=== PATIENT | male | born 1990 | race Two or more races ===

== ENCOUNTER 2020-10-06 21:09 | Inpatient (IN) ==
[2020-10-06] MEDS ORDERED: GI COCKTAIL ED USE PO ONE (22:52)
[2020-10-06] MEDS ORDERED: FAMOTIDINE 20MG/5ML IV PUSH IV STA (22:52)
[2020-10-06] MEDS ORDERED: SODIUM CHLORIDE 0.9% 1000ML 1,000 ML IV STA (22:52)
[2020-10-06] MEDS ORDERED: PANTOprazole 40 MG TAB PO STA (23:37)
[2020-10-06] MEDS ORDERED: DICYCLOMINE HCL 10 MG/ML 2 ML AMP/VIAL IM ONE (23:37)
--- NOTE | 2020-10-06 23:37 | Emergency Department Note ---
History of Present Illness General Chief complaint: Abdominal Pain Stated complaint: STOMACH PAIN History of Present Illness Maximum Pain Intensity: 7 This 30-year-old presents to the ER complaining of upper abdominal pain Location: Upper abdomen Quality: Discomfort Severity: Moderate Duration: Tonight Timing: Tonight Context: Patient was concerned and came in Modifying factors: better with nothing; worse with activity gallbladder has been removed. Patient ate a large meal and later on he developed pain. He has been belching more. Patient denies chest pain, dyspnea, fevers, vomiting, diarrhea, urinary symptoms. Home Medications Medication Instructions Recorded Confirmed Type fenofibrate nanocrystallized 145 145 mg PO DAILY 10/06/20 10/06/20 History mg tablet (Tricor) Allergies Allergy/AdvReac Type Severity Reaction Status Date / Time No Known Allergies Allergy Unverified 10/06/20 23:00 Past Med/Surg History Medical History High cholesterol Surgical History Hx of cholecystectomy Social History Smoking Status: Current every day smoker Tobacco Type: Cigarettes Do You Dip or Chew Tobacco: No; Hx Alcohol Use: No Hx Substance Use: No Preferred Language: Czech Beliefs That Will Affect Care: None Current Living Situation: Spouse Current Living Situation Comment: apartment on campus Feels Safe at Home: Yes Safety Concerns: Feels Safe At This Time Assistive Devices: Glasses Review of Systems A total of 10 systems reviewed and were otherwise negative Physical Exam Vital Signs Vital Signs - 24 hr 10/06/20 21:16 10/06/20 23:01 10/06/20 23:40 Temperature 36.0 C L Temperature Source Temporal Artery Scan Pulse Rate 99 H 67 68 Pulse Rate from SpO2 Sensor 67 66 Pulse Rhythm Regular Regular Respiratory Rate 18 19 18 Respiratory Effort / Characteristics Non-Labored Spontaneous Respiratory Depth Normal Respiratory Pattern Regular Blood Pressure 143/88 H 137/84 133/90 Blood Pressure Mean 106 101 104 Pulse Oximetry 99 99 99 Oxygen Delivery Method Room Air Room Air Room Air Sepsis Recent Fever Within 48 Hours No Sepsis New/Unexplained Change in Mental Status No Sepsis Action Taken by Nursing No Action Required 10/07/20 00:00 10/07/20 00:30 10/07/20 01:00 Temperature Temperature Source Pulse Rate 76 81 70 Pulse Rate from SpO2 Sensor 76 82 70 Pulse Rhythm Respiratory Rate 23 19 20 Respiratory Effort / Characteristics Respiratory Depth Respiratory Pattern Blood Pressure 140/88 125/75 129/81 Blood Pressure Mean 105 91 97 Pulse Oximetry 99 99 99 Oxygen Delivery Method Room Air Room Air Room Air Sepsis Recent Fever Within 48 Hours Sepsis New/Unexplained Change in Mental Status Sepsis Action Taken by Nursing 10/07/20 01:31 10/07/20 01:40 10/07/20 01:50 Temperature Temperature Source Pulse Rate 69 81 71 Pulse Rate from SpO2 Sensor 70 81 67 Pulse Rhythm Respiratory Rate 17 17 22 Respiratory Effort / Characteristics Respiratory Depth Respiratory Pattern Blood Pressure Blood Pressure Mean Pulse Oximetry 100 99 98 Oxygen Delivery Method Room Air Room Air Room Air Sepsis Recent Fever Within 48 Hours Sepsis New/Unexplained Change in Mental Status Sepsis Action Taken by Nursing 10/07/20 02:00 10/07/20 02:30 10/07/20 03:02 Temperature Temperature Source Pulse Rate 67 76 70 Pulse Rate from SpO2 Sensor 67 73 71 Pulse Rhythm Respiratory Rate 21 20 20 Respiratory Effort / Characteristics Respiratory Depth Respiratory Pattern Blood Pressure 131/73 116/62 135/79 Blood Pressure Mean 92 80 97 Pulse Oximetry 98 99 98 Oxygen Delivery Method Sepsis Recent Fever Within 48 Hours Sepsis New/Unexplained Change in Mental Status Sepsis Action Taken by Nursing 10/07/20 03:30 10/07/20 04:00 10/07/20 04:30 Temperature Temperature Source Pulse Rate 76 79 70 Pulse Rate from SpO2 Sensor 72 79 71 Pulse Rhythm Respiratory Rate 20 20 20 Respiratory Effort / Characteristics Respiratory Depth Respiratory Pattern Blood Pressure 121/74 123/96 128/82 Blood Pressure Mean 89 105 97 Pulse Oximetry 97 98 97 Oxygen Delivery Method Room Air Room Air Sepsis Recent Fever Within 48 Hours Sepsis New/Unexplained Change in Mental Status Sepsis Action Taken by Nursing 10/07/20 05:00 Temperature Temperature Source Pulse Rate 76 Pulse Rate from SpO2 Sensor 76 Pulse Rhythm Respiratory Rate 18 Respiratory Effort / Characteristics Respiratory Depth Respiratory Pattern Blood Pressure 124/72 Blood Pressure Mean 89 Pulse Oximetry 96 Oxygen Delivery Method Room Air Sepsis Recent Fever Within 48 Hours Sepsis New/Unexplained Change in Mental Status Sepsis Action Taken by Nursing VITALS: Vitals are noted on the nurse's note and reviewed by myself. Vital signs stable. GENERAL: Pleasant male, in no acute distress, nondiaphoretic, well-developed well-nourished. SKIN: The skin was without rashes, erythema, edema, or bruising. There is no tenting of the skin. Capillary reflex less than 2 seconds. HEAD: Normocephalic atraumatic. EARS: External auditory canals clear, EYES: Pupils equal round and reactive to light and accommodation. Conjunctivae without injection, sclerae without icterus. Extraocular movements intact. NOSE: Patent, turbinates without inflammation or discharge. MOUTH: Mucous membranes moist. Pharynx without erythema or exudate. Uvula midline. Airway patent. Tongue does not deviate. NECK: Supple without nuchal rigidity. No lymphadenopathy. No thyromegaly. Cervical spine is nontender. No JVD. HEART: Regular rate and rhythm LUNGS: Clear to auscultation bilaterally without wheezes, rales or rhonchi. No retractions or accessory muscle use. ABDOMEN: Positive bowel sounds x 4. Normal tympanic percussion. Soft, tender epigastric region, without masses or organomegaly. Sharp sign negative. No guarding or rebound tenderness. No CVA tenderness MUSCULOSKELETAL: No muscle atrophy, erythema, or edema noted. NEURO: Patient was alert and oriented to person place and time. Normal sensati on to light and sharp touch. No focal neurological deficits. Course Administered Medications Enoxaparin Sodium (Enoxaparin Inj 40 Mg/0.4 Ml Syr) 40 mg SQ QAM CRISTAL Stop: 11/06/20 08:59 Last Admin: 10/07/20 10:14 Dose: Not Given Documented by: [id number] Fenofibrate (Fenofibrate Nanocrystallized 145 Mg Tablet) 145 mg PO DAILY CRISTAL Stop: 11/06/20 08:59 Last Admin: 10/07/20 09:54 Dose: Not Given Documented by: [id number] Pantoprazole Sodium 40 mg/ (Syringe) 10 mls @ 5 mls/min IV BID CRISTAL Stop: 11/06/20 08:59 Last Admin: 10/07/20 10:13 Dose: 5 mls/min Documented by: [id number] Sodium Chloride (Nss 1000ml) 1,000 mls @ 220 mls/hr IV .Q4H33M CRISTAL Stop: 11/06/20 08:16 Last Admin: 10/07/20 14:46 Dose: 220 mls/hr Documented by: [id number] Infusion: 10/07/20 14:46 Dose: 220 mls/hr Documented by: [id number] Admin: 10/07/20 10:13 Dose: 220 mls/hr Documented by: [id number] Ketorolac Tromethamine (Ketorolac Tromethamine 15 Mg/Ml Vial) 15 mg IV Q6H PRN PRN Reason: Pain Stop: 10/12/20 08:16 Last Admin: 10/07/20 11:45 Dose: 15 mg Documented by: [id number] Morphine Sulfate (Morphine Sulfate 2 Mg/Ml Carp) 2 mg IV Q4H PRN PRN Reason: Pain Stop: 10/21/20 08:16 Last Admin: 10/07/20 16:30 Dose: 2 mg Documented by: [id number] Admin: 10/07/20 09:03 Dose: 2 mg Documented by: [id number] Ondansetron HCl (Ondansetron Inj 2 Mg/Ml 2 Ml Vial) 4 mg IV Q6H PRN PRN Reason: Nausea Stop: 11/06/20 08:16 Last Admin: 10/07/20 09:11 Dose: 4 mg Documented by: [id number] Discontinued Medications Al Hydrox/Mg Hydrox/Simethicone (Gi Cocktail Ed Use) 1 dose PO ONE ONE Stop: 10/06/20 22:53 Last Admin: 10/06/20 23:17 Dose: 1 dose Documented by: [id number] Dicyclomine HCl (Dicyclomine Hcl 10 Mg/Ml 2 Ml Amp/Vial) 20 mg IM NOW ONE Stop: 10/06/20 23:38 Last Admin: 10/06/20 23:45 Dose: 20 mg Documented by: [id number] Droperidol (Droperidol 5 Mg/2 Ml Vial) 1.25 mg IV ONE STA Stop: 10/07/20 01:22 Last Admin: 10/07/20 01:27 Dose: 1.25 mg Documented by: [id number] Famotidine (Famotidine 20mg/5ml Iv Push) 20 mg IV ONE STA Stop: 10/06/20 22:53 Last Admin: 10/06/20 23:17 Dose: 20 mg Documented by: [id number] Sodium Chloride (Nss 1000ml) 1,000 mls @ 999 mls/hr IV .Q1H1M STA Stop: 10/06/20 23:52 Last Infusion: 10/07/20 00:18 Dose: 0 mls/hr Documented by: [id number] Admin: 10/06/20 23:17 Dose: 999 mls/hr Documented by: [id number] Lactated Ringer's (Lr) 1,000 mls @ 999 mls/hr IV .Q1H1M ONE Stop: 10/07/20 05:09 Last Infusion: 10/07/20 08:58 Dose: 0 mls/hr Documented by: [id number] Admin: 10/07/20 04:38 Dose: 999 mls/hr Documented by: [id number] Lactated Ringer's (Lr) 1,000 mls @ 999 mls/hr IV .Q1H1M ONE Stop: 10/07/20 09:17 Last Infusion: 10/07/20 10:35 Dose: 0 mls/hr Documented by: [id number] Admin: 10/07/20 09:03 Dose: 999 mls/hr Documented by: [id number] Ioversol (Optiray 320 100ml) 95 ml IV ONCE ONE Stop: 10/07/20 01:05 Last Admin: 10/07/20 01:05 Dose: 95 ml Documented by: [id number] Ketorolac Tromethamine (Ketorolac Tromethamine 15 Mg/Ml Vial) 10 mg IV NOW STA Stop: 10/07/20 00:18 Last Admin: 10/07/20 00:37 Dose: 10 mg Documented by: [id number] Morphine Sulfate (Morphine Sulfate 4 Mg/Ml 1 Ml Carp\Vial) 4 mg IV NOW STA Stop: 10/07/20 04:08 Last Admin: 10/07/20 04:38 Dose: 4 mg Documented by: [id number] Pantoprazole Sodium (Pantoprazole 40 Mg Tab) 40 mg PO NOW STA Stop: 10/06/20 23:38 Last Admin: 10/06/20 23:44 Dose: 40 mg Documented by: [id number] Medical Decision Making Medical Records Attestation: I reviewed the patient's medical records. Home Medications Current Medication List: was personally reviewed by me Laboratory Data Attestation: I reviewed the patient's lab results. Result diagrams: 10/06/20 23:10 10/07/20 00:37 Lab Results 10/06/20 10/06/20 10/06/20 Range/Units 23:10 23:10 23:10 WBC 11.45 H (4.8-10.8) K/uL RBC 5.64 (4.7-6.1) M/uL Hgb 17.3 (14.0-18.0) g/dL Hct 44.7 (42-52) % MCV 79.3 L (80-100) fL MCH 30.7 (25-34) pg MCHC 38.7 H (32-36) g/dL Plt Count 266 (130-400) K/uL Immature Gran % (Auto) 0.3 % Neut % (Auto) 74.8 % Lymph % (Auto) 18.3 % [place] % (Auto) 5.3 % Eos % (Auto) 1.0 % Baso % (Auto) 0.3 % Neut # (Auto) 8.57 H (1.4-6.5) K/uL Lymph # (Auto) 2.10 (1.2-3.4) K/uL [place] # (Auto) 0.61 H (0.11-0.59) K/uL Eos # (Auto) 0.11 (0-0.5) K/uL Baso # (Auto) 0.03 (0-0.2) K/uL Immature Gran # (Auto) 0.03 H (0.00-0.02) K/uL Spherocytes 1+ Sodium Cancelled Potassium Cancelled Chloride Cancelled Carbon Dioxide Cancelled Anion Gap Cancelled BUN Cancelled Creatinine Cancelled Est Cr Clr Drug Dosing Cancelled Est GFR ( Amer) Cancelled Est GFR (Non-Af Amer) Cancelled BUN/Creatinine Ratio Cancelled Glucose Cancelled Calcium Cancelled Total Bilirubin Cancelled AST Cancelled ALT Cancelled Alkaline Phosphatase Cancelled Total Protein Cancelled Albumin Cancelled Globulin Cancelled Albumin/Globulin Ratio Cancelled Triglycerides Cholesterol LDL Cholesterol, Calc VLDL Cholesterol, Calc HDL Cholesterol Cholesterol/HDL Ratio Lipase Cancelled Urine Color Dark Yellow Urine Appearance Cloudy A (Clear) Urine pH 6.0 (4.5-7.5) Ur Specific [place] 1.030 (1.000-1.030) Urine Protein 1+ H (Negative) Urine Glucose (UA) Negative (Negative) Urine Ketones Trace H (Negative) Urine Blood 2+ H (Negative) Urine Nitrite Negative (Negative) Urine Bilirubin 1+ H (Negative) Urine Urobilinogen Negative (Negative) Ur Leukocyte Esterase Negative (Negative) Urine WBC (Auto) 1-5 (0-5) /hpf Urine RBC (Auto) 0-4 (0-4) /hpf U Hyaline Cast (Auto) 10-30 H (0-5) /lpf U Epithel Cells (Auto) >30 H (0-5) /lpf Urine Bacteria (Auto) Negative (Negative) Ur Renal Epithelial Cell 0-5 (0-5) /lpf COVID-19 Eval Order SARS-CoV-2 (PCR) (Negative) 10/07/20 10/07/20 10/07/20 Range/Units 00:37 00:37 04:35 WBC (4.8-10.8) K/uL RBC (4.7-6.1) M/uL Hgb (14.0-18.0) g/dL Hct (42-52) % MCV (80-100) fL MCH (25-34) pg MCHC (32-36) g/dL Plt Count (130-400) K/uL Immature Gran % (Auto) % Neut % (Auto) % Lymph % (Auto) % [place] % (Auto) % Eos % (Auto) % Baso % (Auto) % Neut # (Auto) (1.4-6.5) K/uL Lymph # (Auto) (1.2-3.4) K/uL [place] # (Auto) (0.11-0.59) K/uL Eos # (Auto) (0-0.5) K/uL Baso # (Auto) (0-0.2) K/uL Immature Gran # (Auto) (0.00-0.02) K/uL Spherocytes Sodium 139 Potassium 3.5 Chloride 108 H Carbon Dioxide 22 Anion Gap 11.0 BUN 12 Creatinine 0.87 Est Cr Clr Drug Dosing 157.9 Est GFR ( Amer) 135.2 Est GFR (Non-Af Amer) 116.6 BUN/Creatinine Ratio 13.6 Glucose 86 Calcium 7.7 L Total Bilirubin 0.8 AST 36 ALT 77 Alkaline Phosphatase 49 Total Protein 6.7 Albumin 3.6 Globulin 3.1 Albumin/Globulin Ratio 1.2 Triglycerides Cancelled Cholesterol Cancelled LDL Cholesterol, Calc Cancelled VLDL Cholesterol, Calc Cancelled HDL Cholesterol Cancelled Cholesterol/HDL Ratio Cancelled Lipase 396 H Urine Color Urine Appearance (Clear) Urine pH (4.5-7.5) Ur Specific [place] (1.000-1.030) Urine Protein (Negative) Urine Glucose (UA) (Negative) Urine Ketones (Negative) Urine Blood (Negative) Urine Nitrite (Negative) Urine Bilirubin (Negative) Urine Urobilinogen (Negative) Ur Leukocyte Esterase (Negative) Urine WBC (Auto) (0-5) /hpf Urine RBC (Auto) (0-4) /hpf U Hyaline Cast (Auto) (0-5) /lpf U Epithel Cells (Auto) (0-5) /lpf Urine Bacteria (Auto) (Negative) Ur Renal Epithelial Cell (0-5) /lpf COVID-19 Eval Order Covid19 at [facility] SARS-CoV-2 (PCR) (Negative) 10/07/20 Range/Units 04:35 WBC (4.8-10.8) K/uL RBC (4.7-6.1) M/uL Hgb (14.0-18.0) g/dL Hct (42-52) % MCV (80-100) fL MCH (25-34) pg MCHC (32-36) g/dL Plt Count (130-400) K/uL Immature Gran % (Auto) % Neut % (Auto) % Lymph % (Auto) % [place] % (Auto) % Eos % (Auto) % Baso % (Auto) % Neut # (Auto) (1.4-6.5) K/uL Lymph # (Auto) (1.2-3.4) K/uL [place] # (Auto) (0.11-0.59) K/uL Eos # (Auto) (0-0.5) K/uL Baso # (Auto) (0-0.2) K/uL Immature Gran # (Auto) (0.00-0.02) K/uL Spherocytes Sodium Potassium Chloride Carbon Dioxide Anion Gap BUN Creatinine Est Cr Clr Drug Dosing Est GFR ( Amer) Est GFR (Non-Af Amer) BUN/Creatinine Ratio Glucose Calcium Total Bilirubin AST ALT Alkaline Phosphatase Total Protein Albumin Globulin Albumin/Globulin Ratio Triglycerides Cholesterol LDL Cholesterol, Calc VLDL Cholesterol, Calc HDL Cholesterol Cholesterol/HDL Ratio Lipase Urine Color Urine Appearance (Clear) Urine pH (4.5-7.5) Ur Specific [place] (1.000-1.030) Urine Protein (Negative) Urine Glucose (UA) (Negative) Urine Ketones (Negative) Urine Blood (Negative) Urine Nitrite (Negative) Urine Bilirubin (Negative) Urine Urobilinogen (Negative) Ur Leukocyte Esterase (Negative) Urine WBC (Auto) (0-5) /hpf Urine RBC (Auto) (0-4) /hpf U Hyaline Cast (Auto) (0-5) /lpf U Epithel Cells (Auto) (0-5) /lpf Urine Bacteria (Auto) (Negative) Ur Renal Epithelial Cell (0-5) /lpf COVID-19 Eval Order SARS-CoV-2 (PCR) NEGATIVE (Negative) Imaging Data Radiologist's Impression: Abdomen/Pelvis CT 10/07/20 00:17 CT OF THE ABDOMEN AND PELVIS WITH CONTRAST CLINICAL HISTORY: Mid abdominal pain COMPARISON STUDY: None. TECHNIQUE: Following IV administration of 95 mL of Optiray, axial images of the abdomen and pelvis were obtained from the lung bases to the proximal femurs. Images were reviewed in the axial, sagittal, and coronal planes. IV contrast was administered without complication. Automated exposure control was utilized for the study. A dose lowering technique was utilized adhering to the principles of ALARA. CT DOSE: 811.11 mGy.cm FINDINGS: Lung bases are unremarkable. No pneumatosis, free air or portal venous gas is present. There is no biliary ductal dilatation status post cholecystectomy. No hepatic lesions are present. Hepatic steatosis. The spleen is mildly enlarged. Note is made of moderate stranding adjacent to the pancreatic head and uncinate process as well as the second portion of the duodenum. No peripancreatic fluid collection is present. No pancreatic ductal dilatation. A subcentimeter hypodense focus within the pancreatic head is noted. There is no evidence for a bowel obstruction. The appendix is normal. The caliber and wall thickness of small and large bowel are normal. Major vasculature is patent. IMPRESSION: 1. Moderate stranding adjacent to the pancreatic and uncinate process and the second portion of the duodenum suggestive of acute pancreatitis. No peripancreatic fluid collection. 2. No biliary ductal dilatation status post cholecystectomy. 3. Hepatic steatosis. 4. Mild splenomegaly. ACT 112: Negative or not required by law. Electronically signed by: Anthony Og M.D. 10/07/2020 6:50 AM MDM Narrative Prior records/ancillary studies reviewed. Triage Nursing notes reviewed. Additional history obtained from family. The patient's history was concerning for abdominal pain. Differential diagnosis: Etiologies such as appendicitis, diverticulitis, PUD, biliary pathology, UTI, pancreatitis, obstruction, mesenteric ischemia, aortic pathology, infections, inflammatory bowel disease, renal colic, as well as others were entertained. Physical examination findings: As above. ER treatment provided: An order was placed for continuous cardiac monitoring. The monitor shows a rate of 60-100 with a sinus rhythm. GI cocktail, Pepcid, Protonix, Toradol, morphine, IV fluids On reassessment the patient felt better. Diagnostics interpreted by me: The labs revealed leukocytosis, mild lipase elevation Imaging studies: CT ABDOMEN & PELVIS With Contrast: Is abnormal edema in the fat surrounding the pancreatic head. This is favored to represent pancreatitis. There is no pancreatic ductal dilatation. No regional abnormal fluid collection is identified. The gallbladder has been. No other acute findings. There is no evidence of bowel obstruction, appendicitis or diverticulitis. Radiologist: Moshe Loera MD Consultation: Medicine was consulted and will evaluate the patient for admission. Exam and history seem consistent with pancreatitis.. Patient has a history of high triglycerides. Lipid panel was ordered. Medicine was consulted. He will be evaluated for possible admission. Patient states he does not drink alcohol. Gallbladder was surgically removed. By the evaluation outlined above emergent etiologies such as appendicitis, diverticulitis, PUD, biliary pathology, UTI, obstruction, mesenteric ischemia, aortic pathology, inflammatory bowel disease, renal colic, as well as others were deemed relatively unlikely. The pt informed about the findings as listed above. All questions were answered and pleased with the treatment. The chart was completed utilizing [employer] voice recognition software. Grammatical errors, random word insertions, pronoun errors, and incomplete sentences are an occassional consequence of this system due to software limitations, ambient noise, and hardware issues. Any formal questions or concerns about the content, text, or information contained within the body of this dictation should be directly addressed to the physician senior office assistant for clarification. Impression & Plan Pancreatitis Discharge Plan Visit Data Chief Complaint: Abdominal Pain Stated Complaint: STOMACH PAIN ED Provider: Rose Dawn ED Midlevel Provider: Amina Lorenzo Discharge Problem: Pancreatitis Patient Disposition: Admitted As Inpatient Condition: Good Discharge Instructions Interventions: ED Discharge Assessment Last Done: 10/07/20 07:46 Discharge Problem: Pancreatitis Qualifiers: Chronicity: acute Pancreatitis type: unspecified pancreatitis type Acute pancreatitis complication: unspecified Qualified Code(s): K85.90 - Acute pancreatitis without necrosis or infection, unspecified
[2020-10-06 23:46] LABS: Appearance Urine Cloudy (Clear); Bacteria Urine Automated Negative (Negative); Blood Urine 2+ (Negative); Color Urine Dark Yellow; Epithelial Cell Urine Auto >30 /lpf (0-5); Glucose Urine UA Negative (Negative); Ketones Urine Trace (Negative); Leukocyte Esterase Urine Negative (Negative); Nitrite Urine Negative (Negative); Protein Urine 1+ (Negative); RBC Urine Automated 0-4 /hpf (0-4); Urobilinogen Urine Negative (Negative)
[2020-10-06 23:49] LABS: Hematocrit (blood only) 44.7 % (42-52); Hemoglobin 17.3 g/dL (14.0-18.0); Mean Corpuscular Hemoglobin 30.7 pg (25-34); Mean Corpuscular Hgb Conc 38.7 g/dL (32-36); Mean Corpuscular Volume 79.3 fL (80-100); Platelet Count 266 K/uL (130-400); Red Blood Count 5.64 M/uL (4.7-6.1); White Blood Count 11.45 K/uL (4.8-10.8)
[2020-10-06 23:52] LABS: Bilirubin Urine 1+ (Negative)
[2020-10-06 23:58] LABS: Basophils # (auto) 0.03 K/uL (0-0.2); Basophils % (auto) 0.3 %; Eosinophils # (auto) 0.11 K/uL (0-0.5); Immature Granulocytes # (auto) 0.03 K/uL (0.00-0.02); Immature Granulocytes % (auto) 0.3 %; Lymphocytes % (auto) 18.3 %; Monocytes # (auto) 0.61 K/uL (0.11-0.59); Monocytes % (auto) 5.3 %; Neutrophils # (auto) 8.57 K/uL (1.4-6.5); Neutrophils % (auto) 74.8 %; Spherocytes 1+
[2020-10-07 00:08] LABS: Renal Epithelial Cells Urine 0-5 /lpf (0-5)
[2020-10-07] MEDS ORDERED: KETOROLAC TROMETHAMINE 15 MG/ML VIAL IV STA (00:17)
[2020-10-07] MEDS ORDERED: OPTIRAY 320 100ml IV ONE (01:04)
[2020-10-07] MEDS ORDERED: DROPERIDOL 5 MG/2 ML VIAL IV STA (01:21)
[2020-10-07 01:32] LABS: Albumin Globulin Ratio 1.2 (0.9-2); Albumin Level 3.6 gm/dl (3.4-5.0); BUN Creatinine Ratio 13.6 (10-20); Bilirubin,Total 0.8 mg/dl (0.2-1); Calcium 7.7 mg/dl (8.5-10.1); Creatinine Clr Calc Pharmacy 157.9 ml/min; Est GFR (African American) 135.2 ml/min; Est GFR (Non-African American) 116.6 ml/min; Globulin 3.1 gm/dl (2.5-4.0); Potassium 3.5 mmol/L (3.5-5.1); Total Protein 6.7 gm/dl (6.4-8.2)
[2020-10-07] MEDS ORDERED: MoRPHine SULFATE 4 MG/ML 1 ML CARP\\VIAL IV STA (04:07)
[2020-10-07] MEDS ORDERED: LACTATED RINGER'S 1,000 ML IV ONE ×2 (04:09→08:17)
--- NOTE | 2020-10-07 04:32 | History & Physical Report ---
Date of Service October 07, 2020 Assessment & Plan (1) Pancreatitis: Plan: Pancreatitis - lipase mildly elevated to 396 - nona-pancreatic fat edema without pancreatic duct dilation on CT A/P - mild WBC elevation to 11k - lipid panel pending - hepatic panel normal - am A1c - Fluid bolus x2 in ER, LR bolus on floor, LR 1.5x normal DVT ppx: lovenox FEN/GI: NPO, PPI IV BID Code Status: Full Code Dispo: Med/Tele History of Present Illness Primary Care Provider: [facility] 30 yo M with hx pancreatitis due to hypertriglyceridemia in ER for severe abd ominal pain that started this morning. He denies any diarrhea. Has mild nausea but has had abdominal pain even with drinking water today. States that he was started on medication after his first diagnosis of pancreatitis 6 months ago, says he's almost done with it. Denies chest pain, emesis, palpitations, edema, lightheadedness, dizziness. Allergies Allergy/AdvReac Type Severity Reaction Status Date / Time No Known Allergies Allergy Unverified 10/06/20 23:00 Home Medications Medication Instructions Recorded Confirmed Type fenofibrate nanocrystallized 145 145 mg PO DAILY 10/06/20 10/06/20 History mg tablet (Tricor) Past Med/Surg History Medical History High cholesterol Surgical History Hx of cholecystectomy Social History Smoking Status: Current every day smoker Tobacco Type: Cigarettes Do You Dip or Chew Tobacco: No; Hx Alcohol Use: No Hx Substance Use: No Preferred Language: Turkish Beliefs That Will Affect Care: None Current Living Situation: Spouse Current Living Situation Comment: apartment on campus Feels Safe at Home: Yes Safety Concerns: Feels Safe At This Time Assistive Devices: Glasses Review of Systems Constitutional: no fever, no chills, no sweats and no fatigue Eyes: no blind spots and no discharge Ear, Nose, Mouth, Throat: no hearing loss and no nasal congestion Respiratory: no cough and no dyspnea Cardiovascular: no chest pain, no dyspnea on exertion and no edema Gastrointestinal: + abdominal pain and + nausea; no early satiety, no heartburn, no vomiting, no coffee ground emesis, no constipation, no diarrhea/loose stools and no blood in stools Musculoskeletal: no joint pain and no myalgia Neurologic: no tingling, no numbness and no headache(s) Endocrine: no fatigue Physical Exam Physical Exam: Constitutional: obese, in no apparent distress, sitting comfortably in bed. Eyes: EOMI, pupils equal and reactive bilaterally, no scleral icterus Cardiac: RRR, no murmurs, gallops or rubs. Normal S1, S2 Pulm: CTA BL, no wheezes, rhonchi, crackles or rubs, moving air well throughout both lungs Abd: soft, extremely TTP over epigastrium, normal bowel sounds, no rebound or guarding Extremities: 2+ peripheral pulses, no edema Neuro: no focal deficits, moving all 4 limbs, A&Ox3 Results & Data Results & Data ([facility]) Vital Signs (Past 12 Hours) Vital Signs Temp Pulse Resp BP Pulse Ox 10/07/20 03:30 76 20 121/74 97 10/07/20 03:02 70 20 135/79 98 10/07/20 02:30 76 20 116/62 99 10/07/20 02:00 67 21 131/73 98 10/07/20 01:50 71 22 98 10/07/20 01:40 81 17 99 10/07/20 01:31 69 17 100 10/07/20 01:00 70 20 129/81 99 10/07/20 00:30 81 19 125/75 99 10/07/20 00:00 76 23 140/88 99 10/06/20 23:40 68 18 133/90 99 10/06/20 23:01 67 19 137/84 99 10/06/20 21:16 36.0 C L 99 H 18 143/88 H 99 Laboratory Results Laboratory Results WBC 11.45 K/uL (4.8-10.8) H 10/06/20 23:10 RBC 5.64 M/uL (4.7-6.1) 10/06/20 23:10 Hgb 17.3 g/dL (14.0-18.0) 10/06/20 23:10 Hct 44.7 % (42-52) 10/06/20 23:10 MCV 79.3 fL (80-100) L 10/06/20 23:10 MCH 30.7 pg (25-34) 10/06/20 23:10 MCHC 38.7 g/dL (32-36) H 10/06/20 23:10 Plt Count 266 K/uL (130-400) 10/06/20 23:10 Immature Gran % (Auto) 0.3 % 10/06/20 23:10 Neut % (Auto) 74.8 % 10/06/20 23:10 Lymph % (Auto) 18.3 % 10/06/20 23:10 [place] % (Auto) 5.3 % 10/06/20 23:10 Eos % (Auto) 1.0 % 10/06/20 23:10 Baso % (Auto) 0.3 % 10/06/20 23:10 Neut # (Auto) 8.57 K/uL (1.4-6.5) H 10/06/20 23:10 Lymph # (Auto) 2.10 K/uL (1.2-3.4) 10/06/20 23:10 [place] # (Auto) 0.61 K/uL (0.11-0.59) H 10/06/20 23:10 Eos # (Auto) 0.11 K/uL (0-0.5) 10/06/20 23:10 Baso # (Auto) 0.03 K/uL (0-0.2) 10/06/20 23:10 Immature Gran # (Auto) 0.03 K/uL (0.00-0.02) H 10/06/20 23:10 Spherocytes 1+ 10/06/20 23:10 Sodium 139 mmol/L (136-145) 10/07/20 00:37 Potassium 3.5 mmol/L (3.5-5.1) 10/07/20 00:37 Chloride 108 mmol/L (98-107) H 10/07/20 00:37 Carbon Dioxide 22 mmol/L (21-32) 10/07/20 00:37 Anion Gap 11.0 (3-11) 10/07/20 00:37 BUN 12 mg/dl (7-18) 10/07/20 00:37 Creatinine 0.87 mg/dl (0.6-1.4) 10/07/20 00:37 Est Cr Clr Drug Dosing 157.9 ml/min 10/07/20 00:37 Est GFR ( Amer) 135.2 ml/min 10/07/20 00:37 Est GFR (Non-Af Amer) 116.6 ml/min 10/07/20 00:37 BUN/Creatinine Ratio 13.6 (10-20) 10/07/20 00:37 Glucose 86 mg/dl (70-99) 10/07/20 00:37 Calcium 7.7 mg/dl (8.5-10.1) L 10/07/20 00:37 Total Bilirubin 0.8 mg/dl (0.2-1) 10/07/20 00:37 AST 36 U/L (15-37) 10/07/20 00:37 ALT 77 U/L (12-78) 10/07/20 00:37 Alkaline Phosphatase 49 U/L (45-117) 10/07/20 00:37 Total Protein 6.7 gm/dl (6.4-8.2) 10/07/20 00:37 Albumin 3.6 gm/dl (3.4-5.0) 10/07/20 00:37 Globulin 3.1 gm/dl (2.5-4.0) 10/07/20 00:37 Albumin/Globulin Ratio 1.2 (0.9-2) 10/07/20 00:37 Lipase 396 U/L (73-393) H 10/07/20 00:37 Urine Color Dark Yellow 10/06/20 23:10 Urine Appearance Cloudy (Clear) A 10/06/20 23:10 Urine pH 6.0 (4.5-7.5) 10/06/20 23:10 Ur Specific [place] 1.030 (1.000-1.030) 10/06/20 23:10 Urine Protein 1+ (Negative) H 10/06/20 23:10 Urine Glucose (UA) Negative (Negative) 10/06/20 23:10 Urine Ketones Trace (Negative) H 10/06/20 23:10 Urine Blood 2+ (Negative) H 10/06/20 23:10 Urine Nitrite Negative (Negative) 10/06/20 23:10 Urine Bilirubin 1+ (Negative) H 10/06/20 23:10 Urine Urobilinogen Negative (Negative) 10/06/20 23:10 Ur Leukocyte Esterase Negative (Negative) 10/06/20 23:10 Urine WBC (Auto) 1-5 /hpf (0-5) 10/06/20 23:10 Urine RBC (Auto) 0-4 /hpf (0-4) 10/06/20 23:10 U Hyaline Cast (Auto) 10-30 /lpf (0-5) H 10/06/20 23:10 U Epithel Cells (Auto) >30 /lpf (0-5) H 10/06/20 23:10 Urine Bacteria (Auto) Negative (Negative) 10/06/20 23:10 Ur Renal Epithelial Cell 0-5 /lpf (0-5) 10/06/20 23:10 Supervising Physician Co-Signing Physician Notes Attending addendum: I have physically seen this patient, have supervised the medical residents activities, and agree with the H&P unless as otherwise noted. Assessment and Plan: Pancreatitis- Edema noted around pancreatic head Lipase mildly elevated at 396 famotidine 20 mg IV every 12 hours Zofran 4 mg IV every 6 hours as needed No suggestion of alcohol use or gallstone involvement N.p.o. Follow serial laboratories Check a fasting lipid panel to assess triglycerides, reportedly has a history of elevated triglycerides NSS 2 L in the ER, and continue rehydration with LR at 150 mils per hour Remaining orders and notations as noted Resident Activity Tracking Resident Involvement: Resident Care Provided Care Provided: Adult Hospital Medicine (1) Pancreatitis Acute pancreatitis complication: unspecified Chronicity: acute Pancreatitis type: unspecified pancreatitis type Qualified Code(s): K85.90 - Acute pancreatitis without necrosis or infection, unspecified
[2020-10-07 06:29] LABS: Chol HDL Ratio 8; Cholesterol 241 mg/dl (0-200); HDL Cholesterol 30 mg/dl; Triglycerides 1620 mg/dl (0-150)
--- NOTE | 2020-10-07 06:44 | Hospitalist Progress Note ---
Date of Service October 07, 2020 Assessment & Plan (1) Pancreatitis: Plan: 1) Acute Pancreatitis - on admission lipase mildly elevated to 396, elevated triglycerides 1620, mild WBC elevation to 11k - hepatic panel normal - HA1c pending - CT A/P = nona-pancreatic fat edema without pancreatic duct dilation - Fluid bolus x2 in ER, LR bolus on floor, LR 1.5x normal - currently NS 1000 mls @ 220mls/hr - PRN IV morphine, zofran, toradol - NPO, tomorrow can reassess to advance diet and resume PO medication Fenofibrate - If not improved by tomorrow, can consider giving insulin dosed by weight + glucose DVT ppx: lovenox FEN/GI: NPO, PPI IV BID Code Status: Full Code Dispo: Med/Tele Supervising Physician Co-Signing Physician Notes I personally examined the patient and verified all wei points of history and exam, discussed case, and agree with decision making with Dr Gloria. Feeling better. Less pain. Does not really want to eat yet. Notes his triglycerides were about 290 a month or so ago. Notes his diet is changed dramatically for the worst right now. Vitals noted, in general he is awake and alert pleasant no distress. HEENT normocephalic atraumatic mucous membranes moist. Breathing unlabored no accessory muscle use good effort. Abdomen is soft nondistended nontender no masses organomegaly. No guarding rebound or rigidity. No focal neuro deficits. Acute (apparently recurrent) pancreatitiswith no other clear cause, and triglycerides of 1600, his hypertriglyceridemia is very likely the culprit. We discussed how much triglycerides can swing with dietand made recommendations on how to improve his diet. Continue TriCor. Fortunately he is improving, so pheresis or insulin drips appear likely will be necessary. Continue fluids, continue n.p.o. for now, but probably by tomorrow advance diet as tolerated. Otherwise as above. Subjective 30yo Male presents to hospital with abdominal pain, PMH 2 previous episodes of pancreatitis and cholecystectomy. He states the pain occurred last night while he was sleeping, vomited once pain 8/10. He states he is on medication for elevated lipids, takes fenofibrate 150mg daily and a statin, has not taken his medication in the past 4 days, last month has eaten out often many sugary drinks not watched his diet. Patient states no family history of pancreatitis, no history of diabetes. Patient seen at bedside comfortable pain well controlled, calm and cooperative. Review of Systems Review of Systems: Positive alternating constipation diarrhea over the past year Positive vomitting Positive abd pain Negative fever chills Negative headache dizziness Negative chest pain palpitations SOB Negative nausea Negative numbness tingling rash swelling Physical Exam Physical Exam: General: Well appearing, age appropriate, obese Heart: RRR, +S1 S2, no murmurs/gallops/rubs Lungs: cta b/l, no wheezes/rales/rhonchi Abd: tender to palpation in RUQ and epigastric region, no rebound tenderness or guarding, soft, nondistended, +BS Extremities: no swelling, no rashes HEENT: no jaundice Results & Data Results & Data ([facility]) Vital Signs (Past 12 Hours) Vital Signs Temp Pulse Resp BP Pulse Ox 10/07/20 05:00 76 18 124/72 96 10/07/20 04:30 70 20 128/82 97 10/07/20 04:00 79 20 123/96 98 10/07/20 03:30 76 20 121/74 97 10/07/20 03:02 70 20 135/79 98 10/07/20 02:30 76 20 116/62 99 10/07/20 02:00 67 21 131/73 98 10/07/20 01:50 71 22 98 10/07/20 01:40 81 17 99 10/07/20 01:31 69 17 100 10/07/20 01:00 70 20 129/81 99 10/07/20 00:30 81 19 125/75 99 10/07/20 00:00 76 23 140/88 99 10/06/20 23:40 68 18 133/90 99 10/06/20 23:01 67 19 137/84 99 10/06/20 21:16 36.0 C L 99 H 18 143/88 H 99 Laboratory Results 10/07/20 10/07/20 10/07/20 Range/Units 05:45 05:44 04:35 WBC (4.8-10.8) K/uL RBC (4.7-6.1) M/uL Hgb (14.0-18.0) g/dL Hct (42-52) % MCV (80-100) fL MCH (25-34) pg MCHC (32-36) g/dL Plt Count (130-400) K/uL Immature Gran % (Auto) % Neut % (Auto) % Lymph % (Auto) % [place] % (Auto) % Eos % (Auto) % Baso % (Auto) % Neut # (Auto) (1.4-6.5) K/uL Lymph # (Auto) (1.2-3.4) K/uL [place] # (Auto) (0.11-0.59) K/uL Eos # (Auto) (0-0.5) K/uL Baso # (Auto) (0-0.2) K/uL Immature Gran # (Auto) (0.00-0.02) K/uL Spherocytes Sodium Potassium Chloride Carbon Dioxide Anion Gap BUN Creatinine Est Cr Clr Drug Dosing Est GFR ( Amer) Est GFR (Non-Af Amer) BUN/Creatinine Ratio Glucose Estimat Average Glucose Pending Hemoglobin A1c Pending Calcium Total Bilirubin AST ALT Alkaline Phosphatase Total Protein Albumin Globulin Albumin/Globulin Ratio Triglycerides 1620 H Cholesterol 241 H LDL Cholesterol, Calc VLDL Cholesterol, Calc HDL Cholesterol 30 Cholesterol/HDL Ratio 8 Lipase Urine Color Urine Appearance (Clear) Urine pH (4.5-7.5) Ur Specific [place] (1.000-1.030) Urine Protein (Negative) Urine Glucose (UA) (Negative) Urine Ketones (Negative) Urine Blood (Negative) Urine Nitrite (Negative) Urine Bilirubin (Negative) Urine Urobilinogen (Negative) Ur Leukocyte Esterase (Negative) Urine WBC (Auto) (0-5) /hpf Urine RBC (Auto) (0-4) /hpf U Hyaline Cast (Auto) (0-5) /lpf U Epithel Cells (Auto) (0-5) /lpf Urine Bacteria (Auto) (Negative) Ur Renal Epithelial Cell (0-5) /lpf COVID-19 Eval Order SARS-CoV-2 (PCR) NEGATIVE (Negative) 10/07/20 10/07/20 10/07/20 Range/Units 04:35 00:37 00:37 WBC (4.8-10.8) K/uL RBC (4.7-6.1) M/uL Hgb (14.0-18.0) g/dL Hct (42-52) % MCV (80-100) fL MCH (25-34) pg MCHC (32-36) g/dL Plt Count (130-400) K/uL Immature Gran % (Auto) % Neut % (Auto) % Lymph % (Auto) % [place] % (Auto) % Eos % (Auto) % Baso % (Auto) % Neut # (Auto) (1.4-6.5) K/uL Lymph # (Auto) (1.2-3.4) K/uL [place] # (Auto) (0.11-0.59) K/uL Eos # (Auto) (0-0.5) K/uL Baso # (Auto) (0-0.2) K/uL Immature Gran # (Auto) (0.00-0.02) K/uL Spherocytes Sodium 139 Potassium 3.5 Chloride 108 H Carbon Dioxide 22 Anion Gap 11.0 BUN 12 Creatinine 0.87 Est Cr Clr Drug Dosing 157.9 Est GFR ( Amer) 135.2 Est GFR (Non-Af Amer) 116.6 BUN/Creatinine Ratio 13.6 Glucose 86 Estimat Average Glucose Hemoglobin A1c Calcium 7.7 L Total Bilirubin 0.8 AST 36 ALT 77 Alkaline Phosphatase 49 Total Protein 6.7 Albumin 3.6 Globulin 3.1 Albumin/Globulin Ratio 1.2 Triglycerides Cancelled Cholesterol Cancelled LDL Cholesterol, Calc Cancelled VLDL Cholesterol, Calc Cancelled HDL Cholesterol Cancelled Cholesterol/HDL Ratio Cancelled Lipase 396 H Urine Color Urine Appearance (Clear) Urine pH (4.5-7.5) Ur Specific [place] (1.000-1.030) Urine Protein (Negative) Urine Glucose (UA) (Negative) Urine Ketones (Negative) Urine Blood (Negative) Urine Nitrite (Negative) Urine Bilirubin (Negative) Urine Urobilinogen (Negative) Ur Leukocyte Esterase (Negative) Urine WBC (Auto) (0-5) /hpf Urine RBC (Auto) (0-4) /hpf U Hyaline Cast (Auto) (0-5) /lpf U Epithel Cells (Auto) (0-5) /lpf Urine Bacteria (Auto) (Negative) Ur Renal Epithelial Cell (0-5) /lpf COVID-19 Eval Order Covid19 at [facility] SARS-CoV-2 (PCR) (Negative) 10/06/20 10/06/20 10/06/20 Range/Units 23:10 23:10 23:10 WBC 11.45 H (4.8-10.8) K/uL RBC 5.64 (4.7-6.1) M/uL Hgb 17.3 (14.0-18.0) g/dL Hct 44.7 (42-52) % MCV 79.3 L (80-100) fL MCH 30.7 (25-34) pg MCHC 38.7 H (32-36) g/dL Plt Count 266 (130-400) K/uL Immature Gran % (Auto) 0.3 % Neut % (Auto) 74.8 % Lymph % (Auto) 18.3 % [place] % (Auto) 5.3 % Eos % (Auto) 1.0 % Baso % (Auto) 0.3 % Neut # (Auto) 8.57 H (1.4-6.5) K/uL Lymph # (Auto) 2.10 (1.2-3.4) K/uL [place] # (Auto) 0.61 H (0.11-0.59) K/uL Eos # (Auto) 0.11 (0-0.5) K/uL Baso # (Auto) 0.03 (0-0.2) K/uL Immature Gran # (Auto) 0.03 H (0.00-0.02) K/uL Spherocytes 1+ Sodium Cancelled Potassium Cancelled Chloride Cancelled Carbon Dioxide Cancelled Anion Gap Cancelled BUN Cancelled Creatinine Cancelled Est Cr Clr Drug Dosing Cancelled Est GFR ( Amer) Cancelled Est GFR (Non-Af Amer) Cancelled BUN/Creatinine Ratio Cancelled Glucose Cancelled Estimat Average Glucose Hemoglobin A1c Calcium Cancelled Total Bilirubin Cancelled AST Cancelled ALT Cancelled Alkaline Phosphatase Cancelled Total Protein Cancelled Albumin Cancelled Globulin Cancelled Albumin/Globulin Ratio Cancelled Triglycerides Cholesterol LDL Cholesterol, Calc VLDL Cholesterol, Calc HDL Cholesterol Cholesterol/HDL Ratio Lipase Cancelled Urine Color Dark Yellow Urine Appearance Cloudy A (Clear) Urine pH 6.0 (4.5-7.5) Ur Specific [place] 1.030 (1.000-1.030) Urine Protein 1+ H (Negative) Urine Glucose (UA) Negative (Negative) Urine Ketones Trace H (Negative) Urine Blood 2+ H (Negative) Urine Nitrite Negative (Negative) Urine Bilirubin 1+ H (Negative) Urine Urobilinogen Negative (Negative) Ur Leukocyte Esterase Negative (Negative) Urine WBC (Auto) 1-5 (0-5) /hpf Urine RBC (Auto) 0-4 (0-4) /hpf U Hyaline Cast (Auto) 10-30 H (0-5) /lpf U Epithel Cells (Auto) >30 H (0-5) /lpf Urine Bacteria (Auto) Negative (Negative) Ur Renal Epithelial Cell 0-5 (0-5) /lpf COVID-19 Eval Order SARS-CoV-2 (PCR) (Negative) Diagnostic Findings Abdomen/Pelvis CT 10/07/20 00:17 CT OF THE ABDOMEN AND PELVIS WITH CONTRAST CLINICAL HISTORY: Mid abdominal pain COMPARISON STUDY: None. TECHNIQUE: Following IV administration of 95 mL of Optiray, axial images of the abdomen and pelvis were obtained from the lung bases to the proximal femurs. Images were reviewed in the axial, sagittal, and coronal planes. IV contrast was administered without complication. Automated exposure control was utilized for the study. A dose lowering technique was utilized adhering to the principles of ALARA. CT DOSE: 811.11 mGy.cm FINDINGS: Lung bases are unremarkable. No pneumatosis, free air or portal venous gas is present. There is no biliary ductal dilatation status post cholecystectomy. No hepatic lesions are present. Hepatic steatosis. The spleen is mildly enlarged. Note is made of moderate stranding adjacent to the pancreatic head and uncinate process as well as the second portion of the duodenum. No peripancreatic fluid collection is present. No pancreatic ductal dilatation. A subcentimeter hypodense focus within the pancreatic head is noted. There is no evidence for a bowel obstruction. The appendix is normal. The caliber and wall thickness of small and large bowel are normal. Major vasculature is patent. IMPRESSION: 1. Moderate stranding adjacent to the pancreatic and uncinate process and the second portion of the duodenum suggestive of acute pancreatitis. No peripancreatic fluid collection. 2. No biliary ductal dilatation status post cholecystectomy. 3. Hepatic steatosis. 4. Mild splenomegaly. ACT 112: Negative or not required by law. Electronically signed by: Anthony Og M.D. 10/07/2020 6:50 AM Medications Administered Current Inpatient Medications Acetaminophen (Acetaminophen 325 Mg Tab) 650 mg PO Q4H PRN PRN Reason: Pain or Fever Stop: 11/06/20 08:16 Enoxaparin Sodium (Enoxaparin Inj 40 Mg/0.4 Ml Syr) 40 mg SQ QAM CRISTAL Stop: 11/06/20 08:59 Last Admin: 10/07/20 10:14 Dose: Not Given Documented by: Fenofibrate (Fenofibrate Nanocrystallized 145 Mg Tablet) 145 mg PO DAILY [facility] Stop: 11/06/20 08:59 Last Admin: 10/07/20 09:54 Dose: Not Given Documented by: Pantoprazole Sodium 40 mg/ (Syringe) 10 mls @ 5 mls/min IV BID CRISTAL Stop: 11/06/20 08:59 Last Admin: 10/07/20 10:13 Dose: 5 mls/min Documented by: Sodium Chloride (Nss 1000ml) 1,000 mls @ 220 mls/hr IV .Q4H33M CRISTAL Stop: 11/06/20 08:16 Last Admin: 10/07/20 14:46 Dose: 220 mls/hr Documented by: Ketorolac Tromethamine (Ketorolac Tromethamine 15 Mg/Ml Vial) 15 mg IV Q6H PRN PRN Reason: Pain Stop: 10/12/20 08:16 Last Admin: 10/07/20 11:45 Dose: 15 mg Documented by: Magnesium Hydroxide (Magnesium Hydroxide Susp 30 Ml Udc) 30 ml PO Q12H PRN PRN Reason: Constipation Stop: 11/06/20 08:16 Morphine Sulfate (Morphine Sulfate 2 Mg/Ml Carp) 2 mg IV Q4H PRN PRN Reason: Pain Stop: 10/21/20 08:16 Last Admin: 10/07/20 09:03 Dose: 2 mg Documented by: Nitroglycerin (Nitroglycerin Sl 0.4 Mg/Tab Tab) 0.4 mg SL UD PRN PRN Reason: Chest Pain Stop: 11/06/20 08:16 Ondansetron HCl (Ondansetron Inj 2 Mg/Ml 2 Ml Vial) 4 mg IV Q6H PRN PRN Reason: Nausea Stop: 11/06/20 08:16 Last Admin: 10/07/20 09:11 Dose: 4 mg Documented by: Resident Activity Tracking Resident Involvement: Resident Care Provided Care Provided: Adult Hospital Medicine (1) Pancreatitis Acute pancreatitis complication: unspecified Chronicity: acute Pancreatitis type: unspecified pancreatitis type Qualified Code(s): K85.90 - Acute pancreatitis without necrosis or infection, unspecified
--- NOTE | 2020-10-07 06:51 | CT Scan Report ---
CT OF THE ABDOMEN AND PELVIS WITH CONTRAST CLINICAL HISTORY: Mid abdominal pain COMPARISON STUDY: None. TECHNIQUE: Following IV administration of 95 mL of Optiray, axial images of the abdomen and pelvis we re obtained from the lung bases to the proximal femurs. Images were reviewed in the axial, sagittal, and coronal planes. IV contrast was administered without complication. Automated exposure control wa s utilized for the study. A dose lowering technique was utilized adhering to the principles of ALARA . CT DOSE: 811.11 mGy.cm FINDINGS: Lung bases are unremarkable. No pneumatosis, free air or portal venous gas is present. Ther e is no biliary ductal dilatation status post cholecystectomy. No hepatic lesions are present. Hepati c steatosis. The spleen is mildly enlarged. Note is made of moderate stranding adjacent to the pancre atic head and uncinate process as well as the second portion of the duodenum. No peripancreatic fluid collection is present. No pancreatic ductal dilatation. A subcentimeter hypodense focus within the p ancreatic head is noted. There is no evidence for a bowel obstruction. The appendix is normal. The ca liber and wall thickness of small and large bowel are normal. Major vasculature is patent. IMPRESSION: 1. Moderate stranding adjacent to the pancreatic and uncinate process and the second portion of the d uodenum suggestive of acute pancreatitis. No peripancreatic fluid collection. 2. No biliary ductal dilatation status post cholecystectomy. 3. Hepatic steatosis. 4. Mild splenomegaly. ACT 112: Negative or not required by law. Electronically signed by: Anthony gO M.D. 10/07/2020 6:50 AM
[2020-10-07] MEDS ORDERED: ONDANSETRON INJ 2 MG/ML 2 ML VIAL IV PRN (08:17)
[2020-10-07] MEDS ORDERED: ACETAMINOPHEN 325 MG TAB PO PRN (08:17)
[2020-10-07] MEDS ORDERED: MAGNESIUM HYDROXIDE SUSP 30 ML UDC PO PRN (08:17)
[2020-10-07] MEDS ORDERED: NITROGLYCERIN SL 0.4 MG/TAB TAB SL PRN (08:17)
[2020-10-07] MEDS: MoRPHine SULFATE 2 MG/ML CARP IV PRN ×3 (09:03→23:24)
[2020-10-07] MEDS: FENOFIBRATE NANOCRYSTALLIZED 145 MG TABLET PO SCH (09:54)
[2020-10-07] MEDS: SODIUM CHLORIDE 0.9% 1000ML 1,000 ML IV SCH ×4 (10:13→23:25)
[2020-10-07] MEDS: PANTOprazole 40 MG in SYRINGE 0 ML IV SCH ×2 (10:13→20:48)
[2020-10-07] MEDS: ENOXAPARIN INJ 40 MG/0.4 ML SYR SQ SCH (10:14)
[2020-10-07] MEDS: KETOROLAC TROMETHAMINE 15 MG/ML VIAL IV PRN ×2 (11:45→18:09)
--- NOTE | 2020-10-07 21:29 | Billing Data ---
Date of Service October 07, 2020 Coding Level of Care Code 72312 Initial Inpt Care Lvl 2
[2020-10-08] MEDS: KETOROLAC TROMETHAMINE 15 MG/ML VIAL IV PRN ×2 (01:57→08:47)
[2020-10-08] MEDS: SODIUM CHLORIDE 0.9% 1000ML 1,000 ML IV SCH ×3 (03:46→13:30)
[2020-10-08 07:27] LABS: Estimated Average Glucose 111 mg/dl; Hemoglobin A1C 5.5 % (4.5-5.6)
[2020-10-08] MEDS: PANTOprazole 40 MG in SYRINGE 0 ML IV SCH (08:50)
[2020-10-08] MEDS: ENOXAPARIN INJ 40 MG/0.4 ML SYR SQ SCH (08:53)
[2020-10-08] MEDS: FENOFIBRATE NANOCRYSTALLIZED 145 MG TABLET PO SCH (08:53)
[2020-10-08 15:04] LABS: Hematocrit (blood only) 36.7 % (42-52); Hemoglobin 13.2 g/dL (14.0-18.0); Mean Corpuscular Hemoglobin 28.8 pg (25-34); Mean Corpuscular Volume 80.1 fL (80-100); Platelet Count 247 K/uL (130-400); RDW Coefficient of Variation 13.2 % (11.5-14.5); RDW Standard Deviation 38.1 fL (36.4-46.3); Red Blood Count 4.58 M/uL (4.7-6.1)
--- NOTE | 2020-10-08 16:09 | Medical Student Progress Note ---
Date of Service October 08, 2020 Assessment & Plan (1) Pancreatitis: Plan: -lipase elevated 396 -mild WBC elevation 11L -TG markedly elevated 1620 -lipid panel pending -nona-pancreatic fat edema without pancreatic duct dilation on CT A/P -repeat CBC to check white count trend -advance diet clear liquids, resume PO fenofibrate -continue monitoring for ability to pass gas/have a bowel movement -if patient tolerates clear liquids, advance to solid foods -consult with nutrition to reduce risk of future episodes DVT ppx: lovenox FEN/GI: NPO, PPI IV bID code status: full code dispo: med/tele Acute pancreatitis complication: unspecified Chronicity: acute Pancreatitis type: unspecified pancreatitis type Qualified Code(s): K85.90 - Acute pancreatitis without necrosis or infection, unspecified Present on Admission?: No Admission and Anticipated Discharge Date Admission Date: October 07, 2020 Adriana Mayorga is a 30 yr/o male with a hx of hypertriglyceridemia s/p cholecystectomy who presented to the ED 2 days ago with 8/10 upper abdominal pain. In the ED, CT of the abdomen was suggestive of pancreatitis. Today, pt states abdominal pain has decreased to 4-5/10. Mukesh is currently NPO and is starting to get thirsty and hungry and would like to start drinking and eating soon. Pt does not report any SOB, chest pain, dizziness, urinary sx, or nausea. Pt did have x2 episodes of vomiting early on in his admission. Pt reports mild headache. Mukesh's last bowel movement was at home before coming to the hospital and is not currently passing gas. Review of Systems Review of Systems: All systems reviewed & are unremarkable except as noted in Subjective Physical Exam Constitutional: WD/WN, vitals as above Eyes: Anicteric sclerae ENMT: visual inspection normal Neck: normal visual inspection Respiratory: normal respiratory effort, lungs clear to auscultation Cardiovascular: RRR, no murmur, no edema Gastrointestinal (Abdomen): decreased bowel sounds, soft, tender to palpation in the URQ and LRQ, non-distended Skin: no rashes, warm and dry Results & Data ([facility]) Vital Signs (Past 12 Hours) Vital Signs Temp Pulse Pulse Resp BP Pulse Ox 10/08/20 15:48 36.7 C 91 H 18 118/75 99 10/08/20 14:20 91 H 10/08/20 12:13 37.0 C 95 H 18 114/71 97 10/08/20 07:50 37.4 C 102 H 18 129/74 96 10/08/20 07:00 91 H Laboratory Results Laboratory Results - last 24 hr 10/07/20 10/08/20 05:45 13:43 WBC 8.50 RBC 4.58 L Hgb 13.2 L D Hct 36.7 L MCV 80.1 MCH 28.8 MCHC 36.0 RDW Std Deviation 38.1 RDW Coeff of Roxane 13.2 Plt Count 247 MPV 10.0 Estimat Average Glucose 111 Hemoglobin A1c 5.5
--- NOTE | 2020-10-08 17:30 | Discharge Summary ---
Date of Service October 08, 2020 Admission HPI Per Admitting Provider 30 yo M with hx pancreatitis due to hypertriglyceridemia in ER for severe abdominal pain that started this morning. He denies any diarrhea. Has mild nausea but has had abdominal pain even with drinking water today. States that he was started on medication after his first diagnosis of pancreatitis 6 months ago, says he's almost done with it. Denies chest pain, emesis, palpitations, edema, lightheadedness, dizziness. Principal Diagnosis Acute pancreatitis Discharge Exam Constitutional well developed, well nourished and cooperative Eyes PERRL, conjunctivae normal, anicteric sclerae Neck trachea midline, no thyromegaly Respiratory normal respiratory effort, lungs clear to auscultation Cardiovascular RRR, no murmur, no edema Heart Sounds: normal S1 and normal S2 Gastrointestinal (Abdomen) Inspection/Auscultation: abdomen normal to inspection and normal bowel sounds Percussion/Palpation: + abdomen tender (mild in epigastric/LUQ) Skin no rashes, warm and dry Psychiatric A+Ox3, euthymic affect Discharge Data Allergies Allergy/AdvReac Type Severity Reaction Status Date / Time No Known Allergies Allergy Unverified 10/06/20 23:00 Consultations 10/07/20 04:07 ED Decision to Admit Stat Ordered Studies 10/07/20 00:17 CT abd pelvis IV con only Urgent Hospital Course (1) Pancreatitis: Pt with known history of severe hypertriglyceridemia for which he is on fenofibrate was admitted to the inpatient service 2 days ago for acute pancreatitis. He was treated with NPO and IV fluids. He improved clinically over the next 24 hours and was able to tolerate clears and a low fat diet. Pt also had a bowel movement before discharge. He was noted to have TG level in 1000s and was instructed on strict and aggressive dietary change with low fat and low carb diet for HTG and med compliance with fenofibrate to prevent recurrence of pancreatitis Total Time Total Time Spent Total Time Spent (In Minutes): 30 minutes Discharge Plan Discharge Items Patient Disposition: Home - Self-Care Reason For Visit: PANCREATITIS Discharge Diagnosis: Pancreatitis Condition on Discharge: Good Activity: Per Instructions section Non-emergency contact: Primary Care Provider Call non-emergency contact if: your symptoms worsen, your pain is not controlled, your pain is worsening and your temperature is above 101 Follow-up/Referrals: [facility] [Primary Care Provider] - (PLEASE CALL [facility] TO SET UP A FOLLOW-UP DISCHARGE APPOINTMENT WITHIN 7-10 DAYS.) Ole Johnson DO [Resident] - Diet: Low Fat Addtl Attending Provider Instructions: You were seen in the hospital for acute pancreatitis. This seems to have resolved. We recommend that you continue your low fat diet and the fenofibrate and avoid alcohol consumption. F/u with Dr. Johnson within the next 5 days for follow-up. Pending Studies at Discharge: No Stand-Alone Forms: My [facility], Smoking Cessation Medications and DC Order Prescriptions: New ondansetron HCl [Zofran] 4 mg tablet 4 mg PO DAILY PRN (Reason: nausea and vomiting) 4 Days Qty: 4 RF: 0 Continued fenofibrate nanocrystallized [Tricor] 145 mg Tablet 145 mg PO DAILY RF: 0 Discharge Orders: Discharge Order (Routine); Ordered 10/08/20 Ordered By: Ole Johnson Admission Data Admit Date/Time: 10/07/20 05:04 Attending Provider: Mary Lucio Admit Provider: Maura Mello Primary Care Provider: [facility] Other Providers: Patrick Wagner Other Interventions: Discharge Summary Assessment (RN) Last Done: 10/08/20 17:45 Supervising Physician Co-Signing Physician Notes Resident Physician Supervision Note: I independently interviewed and examined the patient and verified the wei history and physical, reviewed labs and image studies and agree with resident Dr. Johnson findings and care plan. Resident Activity Tracking Resident Involvement: Resident Care Provided Care Provided: Adult Hospital Medicine
== END 2020-10-08 18:00 | disposition home or self-care (01) | DRG 440 ==
LOC: ED 21:09 → 2W 10-07 05:04 → SUATTDRO 10-07 05:04 → 2W 10-07 07:46
DX: K85.90 Acute pancreatitis without necrosis or infection, unspecified; E78.1 Pure hyperglyceridemia; F17.210 Nicotine dependence, cigarettes, uncomplicated

== ENCOUNTER 2020-10-31 04:55 | Observation (INO) ==
[2020-10-31] MEDS ORDERED: SODIUM CHLORIDE 0.9% 1000ML 1,000 ML IV STA (05:04)
[2020-10-31] MEDS ORDERED: MoRPHine SULFATE 4 MG/ML 1 ML CARP\\VIAL IV STA (05:04)
[2020-10-31] MEDS ORDERED: ONDANSETRON INJ 2 MG/ML 2 ML VIAL IV STA (05:04)
--- NOTE | 2020-10-31 05:07 | Emergency Department Note ---
History of Present Illness General Chief complaint: Abdominal Pain Stated complaint: ABDOMINAL PAIN Time Seen by Provider: 10/31/20 05:01 History of Present Illness Maximum Pain Intensity: 9 This 30-year-old with history of hypertriglycerides pancreatitis presents to the ER complaining of abdominal pain Location: Upper abdomen Quality: Painful Severity: Moderate Duration: Past 2 days Timing: Started few days ago Context: Pain got worse and patient came in Modifying factors: better with nothing; worse with nothing Patient states he has been eating a bland diet. The pain was getting better after discharge but returned again. Patient denies chest pain, dyspnea, fevers, vomiting, urinary symptoms. Home Medications Medication Instructions Recorded Confirmed Type fenofibrate nanocrystallized 145 145 mg PO DAILY 10/06/20 10/06/20 History mg tablet (Tricor) Allergies Allergy/AdvReac Type Severity Reaction Status Date / Time No Known Allergies Allergy Unverified 10/06/20 23:00 Past Med/Surg History Medical History High cholesterol Pancreatitis Surgical History Hx of cholecystectomy Social History Smoking Status: Former smoker Tobacco Type: Cigarettes Hx Alcohol Use: No Hx Substance Use: No Preferred Language: Nepali Beliefs That Will Affect Care: None Current Living Situation: Spouse Current Living Situation Comment: apartment on campus Feels Safe at Home: Yes Assistive Devices: None Review of Systems A total of 10 systems reviewed and were otherwise negative Physical Exam Vital Signs Vital Signs - 24 hr 10/31/20 04:57 10/31/20 06:05 Temperature 36.5 C Temperature Source Oral Pulse Rate 93 H 72 Pulse Rate [Left Apical] 72 Respiratory Rate 20 17 Respiratory Depth Normal Blood Pressure 122/86 Blood Pressure [Left Arm] 123/75 Blood Pressure Mean 98 Blood Pressure Mean [Left Arm] 91 Blood Pressure Position [Left Arm] Lying Pulse Oximetry 97 97 Oxygen Delivery Method Room Air Room Air Sepsis Recent Fever Within 48 Hours No Sepsis New/Unexplained Change in Mental Status N/A Sepsis Action Taken by Nursing No Action Required VITALS: Vitals are noted on the nurse's note and reviewed by myself. Vital signs stable. GENERAL: Pleasant male who appears in pain, in no acute distress, nondiaphoretic, well-developed well-nourished. SKIN: The skin was without rashes, erythema, edema, or bruising. There is no tenting of the skin. Capillary reflex less than 2 seconds. HEAD: Normocephalic atraumatic. EARS: External auditory canals clear, EYES: Pupils equal round and reactive to light and accommodation. Conjunctivae without injection, sclerae without icterus. Extraocular movements intact. NOSE: Patent, turbinates without inflammation or discharge. MOUTH: Mucous membranes moist. Pharynx without erythema or exudate. Uvula midline. Airway patent. Tongue does not deviate. NECK: Supple without nuchal rigidity. No lymphadenopathy. No thyromegaly. Cervical spine is nontender. No JVD. HEART: Regular rate and rhythm without murmurs gallops or rubs. LUNGS: Clear to auscultation bilaterally without wheezes, rales or rhonchi. No retractions or accessory muscle use. ABDOMEN: Positive bowel sounds x 4. Normal tympanic percussion. Soft, tender to palpation epigastric region, without masses or organomegaly. Sharp sign negative. No guarding or rebound tenderness. No CVA tenderness MUSCULOSKELETAL: No muscle atrophy, erythema, or edema noted. NEURO: Patient was alert and oriented to person place and time. Normal sensation to light and sharp touch. No focal neurological deficits. Course Administered Medications Discontinued Medications Sodium Chloride (Nss 1000ml) 1,000 mls @ 999 mls/hr IV .Q1H1M STA Stop: 10/31/20 06:04 Last Admin: 10/31/20 05:22 Dose: 999 mls/hr Documented by: [id number] Ioversol (Optiray 320 100ml) 94 ml IV ONCE ONE Stop: 10/31/20 05:20 Last Admin: 10/31/20 05:19 Dose: 94 ml Documented by: [id number] Morphine Sulfate (Morphine Sulfate 4 Mg/Ml 1 Ml Carp\Vial) 4 mg IV NOW STA Stop: 10/31/20 05:05 Last Admin: 10/31/20 05:41 Dose: 4 mg Documented by: [id number] Ondansetron HCl (Ondansetron Inj 2 Mg/Ml 2 Ml Vial) 4 mg IV NOW STA Stop: 10/31/20 05:05 Last Admin: 10/31/20 05:41 Dose: 4 mg Documented by: [id number] Medical Decision Making Medical Records Attestation: I reviewed the patient's medical records. Home Medications Current Medication List: was personally reviewed by me Laboratory Data Attestation: I reviewed the patient's lab results. Result diagrams: 10/31/20 05:20 10/31/20 05:20 Lab Results 10/31/20 10/31/20 10/31/20 Range/Units 05:20 05:20 05:20 WBC 8.16 (4.8-10.8) K/uL RBC 5.34 (4.7-6.1) M/uL Hgb 15.4 (14.0-18.0) g/dL Hct 42.4 (42-52) % MCV 79.4 L (80-100) fL MCH 28.8 (25-34) pg MCHC 36.3 H (32-36) g/dL RDW Std Deviation 37.3 (36.4-46.3) fL RDW Coeff of Roxane 13.0 (11.5-14.5) % Plt Count 301 (130-400) K/uL MPV 10.6 H (7.4-10.4) fL Immature Gran % (Auto) 0.1 % Neut % (Auto) 56.6 % Lymph % (Auto) 32.7 % [place] % (Auto) 8.2 % Eos % (Auto) 2.0 % Baso % (Auto) 0.4 % Neut # (Auto) 4.62 (1.4-6.5) K/uL Lymph # (Auto) 2.67 (1.2-3.4) K/uL [place] # (Auto) 0.67 H (0.11-0.59) K/uL Eos # (Auto) 0.16 (0-0.5) K/uL Baso # (Auto) 0.03 (0-0.2) K/uL Immature Gran # (Auto) 0.01 (0.00-0.02) K/uL Sodium 140 (136-145) mmol/L Potassium 3.5 (3.5-5.1) mmol/L Chloride 108 H (98-107) mmol/L Carbon Dioxide 23 (21-32) mmol/L Anion Gap 9.0 (3-11) BUN 11 (7-18) mg/dl Creatinine 1.02 (0.6-1.4) mg/dl Est Cr Clr Drug Dosing 131.4 ml/min Est GFR ( Amer) 114.6 ml/min Est GFR (Non-Af Amer) 98.9 ml/min BUN/Creatinine Ratio 11.0 (10-20) Glucose 118 H (70-99) mg/dl Calcium 8.8 (8.5-10.1) mg/dl Total Bilirubin 0.9 (0.2-1) mg/dl AST 47 H (15-37) U/L ALT 87 H (12-78) U/L Alkaline Phosphatase 51 (45-117) U/L Total Protein 7.3 (6.4-8.2) gm/dl Albumin 4.1 (3.4-5.0) gm/dl Globulin 3.2 (2.5-4.0) gm/dl Albumin/Globulin Ratio 1.3 (0.9-2) Lipase 511 H (73-393) U/L Urine Color Yellow Urine Appearance Clear (Clear) Urine pH 6.0 (4.5-7.5) Ur Specific [place] 1.018 (1.000-1.030) Urine Protein Negative (Negative) Urine Glucose (UA) Negative (Negative) Urine Ketones Negative (Negative) Urine Blood Negative (Negative) Urine Nitrite Negative (Negative) Urine Bilirubin Negative (Negative) Urine Urobilinogen Negative (Negative) Ur Leukocyte Esterase Negative (Negative) COVID-19 Eval Order 10/31/20 Range/Units 06:19 WBC (4.8-10.8) K/uL RBC (4.7-6.1) M/uL Hgb (14.0-18.0) g/dL Hct (42-52) % MCV (80-100) fL MCH (25-34) pg MCHC (32-36) g/dL RDW Std Deviation (36.4-46.3) fL RDW Coeff of Roxane (11.5-14.5) % Plt Count (130-400) K/uL MPV (7.4-10.4) fL Immature Gran % (Auto) % Neut % (Auto) % Lymph % (Auto) % [place] % (Auto) % Eos % (Auto) % Baso % (Auto) % Neut # (Auto) (1.4-6.5) K/uL Lymph # (Auto) (1.2-3.4) K/uL [place] # (Auto) (0.11-0.59) K/uL Eos # (Auto) (0-0.5) K/uL Baso # (Auto) (0-0.2) K/uL Immature Gran # (Auto) (0.00-0.02) K/uL Sodium (136-145) mmol/L Potassium (3.5-5.1) mmol/L Chloride (98-107) mmol/L Carbon Dioxide (21-32) mmol/L Anion Gap (3-11) BUN (7-18) mg/dl Creatinine (0.6-1.4) mg/dl Est Cr Clr Drug Dosing ml/min Est GFR ( Amer) ml/min Est GFR (Non-Af Amer) ml/min BUN/Creatinine Ratio (10-20) Glucose (70-99) mg/dl Calcium (8.5-10.1) mg/dl Total Bilirubin (0.2-1) mg/dl AST (15-37) U/L ALT (12-78) U/L Alkaline Phosphatase (45-117) U/L Total Protein (6.4-8.2) gm/dl Albumin (3.4-5.0) gm/dl Globulin (2.5-4.0) gm/dl Albumin/Globulin Ratio (0.9-2) Lipase (73-393) U/L Urine Color Urine Appearance (Clear) Urine pH (4.5-7.5) Ur Specific [place] (1.000-1.030) Urine Protein (Negative) Urine Glucose (UA) (Negative) Urine Ketones (Negative) Urine Blood (Negative) Urine Nitrite (Negative) Urine Bilirubin (Negative) Urine Urobilinogen (Negative) Ur Leukocyte Esterase (Negative) COVID-19 Eval Order Covid19 at [facility] Imaging Data Attestation: I personally reviewed and interpreted this imaging study as follows: MDM Narrative Prior records/ancillary studies reviewed. Triage Nursing notes reviewed. Additional history obtained from . The patient's history was concerning for abdominal pain. Differential diagnosis: Etiologies such as appendicitis, diverticulitis, PUD, biliary pathology, UTI, pancreatitis, obstruction, mesenteric ischemia, aortic pathology, infections, inflammatory bowel disease, renal colic, as well as others were entertained. Physical examination findings: As above. ER treatment provided: An order was placed for continuous cardiac monitoring. The monitor shows a rate of 60-1 20 with a sinus rhythm. IV fluids, morphine, Zofran On reassessment the patient felt better. Diagnostics interpreted by me: The labs revealed elevated lipase. Negative urine No leukocytosis Imaging studies: CT ABDOMEN & PELVIS With Contrast: Hepatic steatosis. Cholecystectomy. There is induration surrounding the head of the pancreas, consistent with mild acute pancreatitis. No pseudocyst. Small focus of decreased enhancement in the pancreatic head, for which focal pancreatic necrosis cannot be excluded. Radiologist: Valerio Rodriguez MD Consultation: A consultation was placed with the hospitalist. The case was discussed and diagnostics were reviewed. The patient was evaluated in the ER for further treatment. Exam and history seem consistent with recurrent pancreatitis. Medicine was consulted. He will be evaluated for admission. CT concerning for pancreatitis. Mildly elevated lipase. Elevated triglycerides from last ER visit. By the evaluation outlined above emergent etiologies such as appendicitis, diverticulitis, PUD, biliary pathology, UTI, obstruction, mesenteric ischemia, aortic pathology, infections, inflammatory bowel disease, renal colic, as well as others were deemed relatively unlikely. The pt informed about the findings as listed above. All questions were answered and pleased with the treatment. The chart was completed utilizing [employer] Speech voice recognition software. Grammatical errors, random word insertions, pronoun errors, and incomplete sentences are an occassional consequence of this system due to software limitations, ambient noise, and hardware issues. Any formal questions or concerns about the content, text, or information contained within the body of this dictation should be directly addressed to the physician speech pathologist assistant for clarification. Impression & Plan Pancreatitis Discharge Plan Visit Data Chief Complaint: Abdominal Pain Stated Complaint: ABDOMINAL PAIN ED Provider: Alexandra Carrasquillo ED Midlevel Provider: Amina Lorenzo Discharge Problem: Pancreatitis Patient Disposition: Admitted As Inpatient Condition: Good Forms Stand Alone Forms: My [employer] Prescriptions Prescriptions: No Action fenofibrate nanocrystallized [Tricor] 145 mg Tablet 145 mg PO DAILY RF: 0 Referrals Referrals: [facility] [Primary Care Provider] - Discharge Problem: Pancreatitis Qualifiers: Chronicity: acute Pancreatitis type: unspecified pancreatitis type Acute pancreatitis complication: unspecified Qualified Code(s): K85.90 - Acute pancreatitis without necrosis or infection, unspecified
[2020-10-31] MEDS ORDERED: OPTIRAY 320 100ml IV ONE (05:19)
[2020-10-31 05:43] LABS: Basophils # (auto) 0.03 K/uL (0-0.2); Basophils % (auto) 0.4 %; Eosinophils # (auto) 0.16 K/uL (0-0.5); Hematocrit (blood only) 42.4 % (42-52); Hemoglobin 15.4 g/dL (14.0-18.0); Immature Granulocytes # (auto) 0.01 K/uL (0.00-0.02); Immature Granulocytes % (auto) 0.1 %; Lymphocytes # (auto) 2.67 K/uL (1.2-3.4); Lymphocytes % (auto) 32.7 %; Mean Corpuscular Hemoglobin 28.8 pg (25-34); Mean Corpuscular Hgb Conc 36.3 g/dL (32-36); Mean Corpuscular Volume 79.4 fL (80-100); Mean Platelet Volume 10.6 fL (7.4-10.4); Monocytes # (auto) 0.67 K/uL (0.11-0.59); Monocytes % (auto) 8.2 %; Neutrophils # (auto) 4.62 K/uL (1.4-6.5); Neutrophils % (auto) 56.6 %; Platelet Count 301 K/uL (130-400); RDW Standard Deviation 37.3 fL (36.4-46.3); Red Blood Count 5.34 M/uL (4.7-6.1); White Blood Count 8.16 K/uL (4.8-10.8)
[2020-10-31 05:58] LABS: Appearance Urine Clear (Clear); Bilirubin Urine Negative (Negative); Blood Urine Negative (Negative); Color Urine Yellow; Glucose Urine UA Negative (Negative); Ketones Urine Negative (Negative); Leukocyte Esterase Urine Negative (Negative); Nitrite Urine Negative (Negative); Protein Urine Negative (Negative); Specific Gravity Urine 1.018 (1.000-1.030); Urobilinogen Urine Negative (Negative)
[2020-10-31] MEDS ORDERED: LACTATED RINGER'S 1,000 ML IV ONE (06:04)
[2020-10-31 06:17] LABS: Albumin Globulin Ratio 1.3 (0.9-2); Albumin Level 4.1 gm/dl (3.4-5.0); Bilirubin,Total 0.9 mg/dl (0.2-1); Calcium 8.8 mg/dl (8.5-10.1); Creatinine Clr Calc Pharmacy 131.4 ml/min; Est GFR (African American) 114.6 ml/min; Est GFR (Non-African American) 98.9 ml/min; Globulin 3.2 gm/dl (2.5-4.0); Total Protein 7.3 gm/dl (6.4-8.2)
[2020-10-31 06:27] LABS: Potassium 3.5 mmol/L (3.5-5.1)
[2020-10-31] MEDS ORDERED: HYDROmorphone INJ 0.5 MG/0.5 ML SYR IV STA (06:29)
--- NOTE | 2020-10-31 07:06 | CT Scan Report ---
CT OF THE ABDOMEN AND PELVIS WITH CONTRAST CLINICAL HISTORY: ? pancreatitis COMPARISON STUDY: CT of the abdomen and pelvis October 07, 2020. TECHNIQUE: Following IV administration of 94 mL of Optiray, axial images of the abdomen and pelvis we re obtained from the lung bases to the proximal femurs. Images were reviewed in the axial, sagittal, and coronal planes. IV contrast was administered without complication. Automated exposure control wa s utilized for the study. A dose lowering technique was utilized adhering to the principles of ALARA . CT DOSE: 912.44 mGy.cm FINDINGS: Lung bases are unremarkable. No pneumatosis, free air or portal venous gas is present. Ther e is hepatic steatosis. There is no biliary ductal dilatation status post cholecystectomy. Mild splen omegaly is unchanged. Note is made of edema and enlargement of the pancreatic head with mild adjacent stranding and trace fluid. Findings are slightly less in degree when compared to CT of October 07. No peripancreatic fluid collection is present. There is a 9 mm hypodensity within the pancreatic head. Major vasculature is patent. There is no pancreatic ductal dilatation. There is no evidence for a bowel obstruction. The appendix is normal. Caliber and wall thickness of small and large bowel are normal. No hydronephrosis is present. No acute fracture or suspicious lesion is identified within th e visualized skeletal structures. IMPRESSION: 1. Edematous pancreatic head with mild peripancreatic stranding and fluid. Findings slightly less in degree when compared to CT of October 07, 2020. The findings favor recurrent acute pancreatitis. Resid ual from previous episode of acute pancreatitis could appear similar. 9 mm hypodensity within the patel creatic head. Although nonspecific, pancreatic necrosis is considered unlikely. No peripancreatic flu id collection. 2. No biliary ductal dilatation status post cholecystectomy. 3. Hepatic steatosis. 4. Mild splenomegaly. ACT 112: Negative or not required by law. Electronically signed by: Anthony Og M.D. 10/31/2020 7:04 AM
[2020-10-31] MEDS ORDERED: STAT IV Infusion **Titration per Protocol STA (07:40)
--- NOTE | 2020-10-31 07:43 | History & Physical Report ---
Date of Service October 31, 2020 Assessment & Plan (1) Hypertriglyceridemia, essential: Plan: - lipase ~585 - CT abdomen showing inflammation surrounding pancreatic head, less than previous. 9 mm density in pancreatic head less likely necrotic. - insulin drip 0.1 - 0.3u/kg/hour (10-30) to decrease triglyceride levels. - concurrent D5 fluids to maintain sugars between 100-200 - if BSG <100, >200, nursing to message resident for orders to change D5 fluids. If protocol requires insulin <10u/hr or >30u/hr, nursing to reach out to resident for orders to adjust D5 fluids instead. - trig repeat 10/31 pm, 11/01 AM - BMP Q4 Recurrent Pancreatitis - likely familial, on tricor - would benefit from addition of omega-3 FA dvt ppx: lovenox FEN/GI: NPO Code status: full code Dispo: Med/Tele. Home after resolution. (2) Pancreatitis: History of Present Illness Primary Care Provider: [facility] 30 yo M with a PMH of recurrent hypertriglyceridemia causing pancreatitis, in ER for sudden onset mid abdominal pain. [facility]. States he did well for after discharge and then within the last 4 days has been feeling more ill. Has been walking 10,000 steps a day, eating diet of meat, vegetables, avoiding carbs and no fats. has been taking his daily fibrate medication. Reports Nausea without vomiting, abdominal pain worse with eating larger meals, persistent non-bloody diarrhea with 4 bowel movements a day. says stools are sometimes foamy, pale colored. No alcohol intake. Reports havign issues with pancreatitis for the past 3 years, and was started on fenofibrate by his doctor in [place] at that time. Has been hospitalized for the condition 2-3 times since. No family hx pancreatitis, DM2. unsure of family hx hypertriglyceridemia. Allergies Allergy/AdvReac Type Severity Reaction Status Date / Time No Known Allergies Allergy Unverified 10/06/20 23:00 Home Medications Medication Instructions Recorded Confirmed Type fenofibrate nanocrystallized 145 145 mg PO DAILY 10/06/20 10/06/20 History mg tablet (Tricor) Past Med/Surg History Medical History High cholesterol Pancreatitis Surgical History Hx of cholecystectomy Social History Smoking Status: Current every day smoker Tobacco Type: Cigarettes Hx Alcohol Use: No Hx Substance Use: No Preferred Language: Chilean Communication Ability: Effective Cloud Developer Required: No Beliefs That Will Affect Care: None Current Living Situation: Spouse Current Living Situation Comment: apartment on campus Other Information That Helps Us Care for You: No Feels Safe at Home: Yes Safety Concerns: Feels Safe At This Time Assistive Devices: Glasses Review of Systems Review of Systems: All systems reviewed & are unremarkable except as noted in Subjective Physical Exam Physical Exam: Constitutional: obese, in no apparent distress, laying comfortably in bed. Eyes: EOMI, pupils equal and reactive bilaterally, no scleral icterus Cardiac: RRR, no murmurs, gallops or rubs. Normal S1, S2 Pulm: CTA BL, no wheezes, rhonchi, crackles or rubs, moving air well throughout both lungs Abd: soft, nontender, distended, normal bowel sounds, no rebound or guarding Extremities: 2+ peripheral pulses, no edema Neuro: no focal deficits, moving all 4 limbs, A&Ox3 Results & Data Results & Data ([facility]) Vital Signs (Past 12 Hours) Vital Signs Temp Pulse Pulse Resp BP BP Pulse Ox 10/31/20 06:05 72 72 17 123/75 97 10/31/20 04:57 36.5 C 93 H 20 122/86 97 Laboratory Results Laboratory Results WBC 8.16 K/uL (4.8-10.8) 10/31/20 05:20 RBC 5.34 M/uL (4.7-6.1) 10/31/20 05:20 Hgb 15.4 g/dL (14.0-18.0) 10/31/20 05:20 POC Hgb 15.0 g/dl (14.0-18.0) 10/31/20 05:33 Hct 42.4 % (42-52) 10/31/20 05:20 POC Hct 44 % (42-52) 10/31/20 05:33 MCV 79.4 fL (80-100) L 10/31/20 05:20 MCH 28.8 pg (25-34) 10/31/20 05:20 MCHC 36.3 g/dL (32-36) H 10/31/20 05:20 RDW Std Deviation 37.3 fL (36.4-46.3) 10/31/20 05:20 RDW Coeff of Roxane 13.0 % (11.5-14.5) 10/31/20 05:20 Plt Count 301 K/uL (130-400) 10/31/20 05:20 MPV 10.6 fL (7.4-10.4) H 10/31/20 05:20 Immature Gran % (Auto) 0.1 % 10/31/20 05:20 Neut % (Auto) 56.6 % 10/31/20 05:20 Lymph % (Auto) 32.7 % 10/31/20 05:20 [place] % (Auto) 8.2 % 10/31/20 05:20 Eos % (Auto) 2.0 % 10/31/20 05:20 Baso % (Auto) 0.4 % 10/31/20 05:20 Neut # (Auto) 4.62 K/uL (1.4-6.5) 10/31/20 05:20 Lymph # (Auto) 2.67 K/uL (1.2-3.4) 10/31/20 05:20 [place] # (Auto) 0.67 K/uL (0.11-0.59) H 10/31/20 05:20 Eos # (Auto) 0.16 K/uL (0-0.5) 10/31/20 05:20 Baso # (Auto) 0.03 K/uL (0-0.2) 10/31/20 05:20 Immature Gran # (Auto) 0.01 K/uL (0.00-0.02) 10/31/20 05:20 POC Sodium 141 mmol/L (135-144) 10/31/20 05:33 Sodium 140 mmol/L (136-145) 10/31/20 05:20 POC Potassium 3.3 mmol/L (3.3-5.0) 10/31/20 05:33 Potassium 3.5 mmol/L (3.5-5.1) 10/31/20 05:20 POC Chloride 103 mmol/L (101-112) 10/31/20 05:33 Chloride 108 mmol/L (98-107) H 10/31/20 05:20 Carbon Dioxide 23 mmol/L (21-32) 10/31/20 05:20 POC Total CO2 26 mmol/L (24-31) 10/31/20 05:33 Anion Gap 9.0 (3-11) 10/31/20 05:20 POC Anion Gap 16.0 mmol/L (16-25) 10/31/20 05:33 POC BUN 12 mg/dl (7-18) 10/31/20 05:33 BUN 11 mg/dl (7-18) 10/31/20 05:20 Creatinine 1.02 mg/dl (0.6-1.4) 10/31/20 05:20 POC Creatinine 0.9 mg/dl (0.6-1.3) 10/31/20 05:33 Est Cr Clr Drug Dosing 131.4 ml/min 10/31/20 05:20 Est GFR ( Amer) 114.6 ml/min 10/31/20 05:20 Est GFR (Non-Af Amer) 98.9 ml/min 10/31/20 05:20 BUN/Creatinine Ratio 11.0 (10-20) 10/31/20 05:20 Glucose 118 mg/dl (70-99) H 10/31/20 05:20 POC Glucose 103 mg/dl (70-99) H 10/31/20 11:05 POC Glucose (other) 109 mg/dl (70-99) H 10/31/20 05:33 Calcium 8.8 mg/dl (8.5-10.1) 10/31/20 05:20 POC Ioniz Calcium Radha 1.24 mmol/l (1.12-1.32) 10/31/20 05:33 Total Bilirubin 0.9 mg/dl (0.2-1) 10/31/20 05:20 AST 47 U/L (15-37) H 10/31/20 05:20 ALT 87 U/L (12-78) H 10/31/20 05:20 Alkaline Phosphatase 51 U/L (45-117) 10/31/20 05:20 Total Protein 7.3 gm/dl (6.4-8.2) 10/31/20 05:20 Albumin 4.1 gm/dl (3.4-5.0) 10/31/20 05:20 Globulin 3.2 gm/dl (2.5-4.0) 10/31/20 05:20 Albumin/Globulin Ratio 1.3 (0.9-2) 10/31/20 05:20 Triglycerides 869 mg/dl (0-150) H 10/31/20 05:20 Lipase 511 U/L (73-393) H 10/31/20 05:20 Urine Color Yellow 10/31/20 05:20 Urine Appearance Clear (Clear) 10/31/20 05:20 Urine pH 6.0 (4.5-7.5) 10/31/20 05:20 Ur Specific [place] 1.018 (1.000-1.030) 10/31/20 05:20 Urine Protein Negative (Negative) 10/31/20 05:20 Urine Glucose (UA) Negative (Negative) 10/31/20 05:20 Urine Ketones Negative (Negative) 10/31/20 05:20 Urine Blood Negative (Negative) 10/31/20 05:20 Urine Nitrite Negative (Negative) 10/31/20 05:20 Urine Bilirubin Negative (Negative) 10/31/20 05:20 Urine Urobilinogen Negative (Negative) 10/31/20 05:20 Ur Leukocyte Esterase Negative (Negative) 10/31/20 05:20 COVID-19 Eval Order Covid19 at [facility] 10/31/20 06:19 SARS-CoV-2 (PCR) NEGATIVE (Negative) 10/31/20 06:19 Impressions Abdomen/Pelvis CT 10/31/20 05:04 CT OF THE ABDOMEN AND PELVIS WITH CONTRAST CLINICAL HISTORY: ? pancreatitis COMPARISON STUDY: CT of the abdomen and pelvis October 07, 2020. TECHNIQUE: Following IV administration of 94 mL of Optiray, axial images of the abdomen and pelvis were obtained from the lung bases to the proximal femurs. Images were reviewed in the axial, sagittal, and coronal planes. IV contrast was administered without complication. Automated exposure control was utilized for the study. A dose lowering technique was utilized adhering to the principles of ALARA. CT DOSE: 912.44 mGy.cm FINDINGS: Lung bases are unremarkable. No pneumatosis, free air or portal venous gas is present. There is hepatic steatosis. There is no biliary ductal dilatation status post cholecystectomy. Mild splenomegaly is unchanged. Note is made of edema and enlargement of the pancreatic head with mild adjacent stranding and trace fluid. Findings are slightly less in degree when compared to CT of October 07, 2020. No peripancreatic fluid collection is present. There is a 9 mm hypodensity within the pancreatic head. Major vasculature is patent. There is no pancreatic ductal dilatation. There is no evidence for a bowel obstruction. The appendix is normal. Caliber and wall thickness of small and large bowel are normal. No hydronephrosis is present. No acute fracture or suspicious lesion is identified within the visualized skeletal structures. IMPRESSION: 1. Edematous pancreatic head with mild peripancreatic stranding and fluid. Findings slightly less in degree when compared to CT of October 07, 2020. The findings favor recurrent acute pancreatitis. Residual from previous episode of acute pancreatitis could appear similar. 9 mm hypodensity within the pancreatic head. Although nonspecific, pancreatic necrosis is considered unlikely. No peripancreatic fluid collection. 2. No biliary ductal dilatation status post cholecystectomy. 3. Hepatic steatosis. 4. Mild splenomegaly. ACT 112: Negative or not required by law. Electronically signed by: Anthony Og M.D. 10/31/2020 7:04 AM Supervising Physician Co-Signing Physician Notes I personally examined the patient and verified all wei points of history and exam, discussed case, and agree with decision making with Dr Mello. Recurrent symptoms consistent with pancreatitishas been taking his fenofibrate, still has some from before he moved to the , has not run out yet. Vitals noted, in general he is awake and alert pleasant no distress. HEENT normocephalic atraumatic mucous membranes moist. Breathing unlabored no accessory muscle use good effort. Mild epigastric tenderness no guarding rebound or rigidity. Recurrent hypertriglycerides mediated pancreatitisinsulin drip, IV fluids, supportive care. Will review for what else we could be doing to help lower his triglycerides, obviously ongoing lifestyle modification as well. Fortunately appears to be improving fairly quickly. (1) Pancreatitis Acute pancreatitis complication: unspecified Chronicity: acute Pancreatitis type: unspecified pancreatitis type Qualified Code(s): K85.90 - Acute pancreatitis without necrosis or infection, unspecified
[2020-10-31] MEDS ORDERED: INSULIN REGULAR 250 UNITS in SODIUM CHLORIDE 0.9% 247.5 ML IV SCH (08:06)
[2020-10-31] MEDS ORDERED: INSULIN PROTOCOL GOAL RANGE ONE (08:06)
[2020-10-31] MEDS ORDERED: MODERATE STRESS LEVEL ONE (08:06)
[2020-10-31] MEDS ORDERED: HYDROmorphone INJ 0.5 MG/0.5 ML SYR IV PRN ×2 (08:10→18:21)
[2020-10-31 10:18] LABS: iSTAT Potassium 3.3 mmol/L (3.3-5.0)
[2020-10-31 10:19] LABS: iSTAT Creatinine 0.9 mg/dl (0.6-1.3); iSTAT Ionized Calcium 1.24 mmol/l (1.12-1.32)
[2020-10-31] MEDS: D5W AND NSS 1,000 ML IV SCH ×2 (11:16→13:44)
[2020-10-31] MEDS ORDERED: D5W AND LACTATED RINGERS 1,000 ML IV SCH (13:30)
[2020-10-31] MEDS ORDERED: ONDANSETRON INJ 2 MG/ML 2 ML VIAL IV PRN (13:41)
[2020-10-31] MEDS: INSULIN ASPART 100 UNITS/ML 3 ML PEN SC SCH ×3 (13:42→21:39)
[2020-10-31 14:44] LABS: BUN Creatinine Ratio 8.8 (10-20); Calcium 8.3 mg/dl (8.5-10.1); Creatinine Clr Calc Pharmacy 147.3 ml/min; Est GFR (African American) 131.5 ml/min; Est GFR (Non-African American) 113.5 ml/min
[2020-10-31] MEDS ORDERED: DEXTROSE 50% 50 ML SYRINGE IV ONE ×2 (15:49→21:32)
[2020-10-31] MEDS ORDERED: POTASSIUM CHLORIDE CRTAB 20 MEQ TABCR PO STA ×2 (15:54→16:46)
[2020-10-31 16:25] LABS: Potassium 3.4 mmol/L (3.5-5.1)
[2020-10-31] MEDS: D10 NSS IV SCH ×2 (16:50→21:13)
[2020-10-31 18:41] LABS: BUN Creatinine Ratio 8.2 (10-20); Calcium 8.1 mg/dl (8.5-10.1); Creatinine Clr Calc Pharmacy 167.5 ml/min; Est GFR (African American) 139.9 ml/min; Est GFR (Non-African American) 120.7 ml/min; Potassium 3.3 mmol/L (3.5-5.1)
--- NOTE | 2020-10-31 19:19 | Billing Data ---
Date of Service October 31, 2020 Coding Level of Care Code 74494 OBS Care - Discharge
--- NOTE | 2020-10-31 19:20 | Billing Data ---
Date of Service October 31, 2020 Coding Level of Care Code INT OBSERVATION CARE 71M LVL 3 Comment disregard 226
[2020-10-31] MEDS: KETOROLAC TROMETHAMINE 15 MG/ML VIAL IV PRN (19:39)
[2020-10-31 22:27] LABS: BUN Creatinine Ratio 6.6 (10-20); Calcium 8.3 mg/dl (8.5-10.1); Creatinine Clr Calc Pharmacy 145.7 ml/min; Est GFR (African American) 129.8 ml/min; Potassium 4.2 mmol/L (3.5-5.1)
[2020-11-01] MEDS: SODIUM CHLORIDE 0.9% 1000ML 1,000 ML IV SCH ×2 (01:01→06:00)
[2020-11-01] MEDS: KETOROLAC TROMETHAMINE 15 MG/ML VIAL IV PRN ×2 (01:56→11:44)
[2020-11-01 02:24] LABS: BUN Creatinine Ratio 6.3 (10-20); Creatinine Clr Calc Pharmacy 150.6 ml/min; Est GFR (African American) 133.9 ml/min; Est GFR (Non-African American) 115.5 ml/min
[2020-11-01 07:07] LABS: BUN Creatinine Ratio 7.5 (10-20); Calcium 7.9 mg/dl (8.5-10.1); Est GFR (African American) 139.9 ml/min; Est GFR (Non-African American) 120.7 ml/min; Potassium 3.6 mmol/L (3.5-5.1)
--- NOTE | 2020-11-01 09:12 | Hospitalist Progress Note ---
Date of Service November 01, 2020 Assessment & Plan (1) Hypertriglyceridemia, essential: Plan: - lipase ~585 - CT abdomen showing inflammation surrounding pancreatic head, less than previous. 9 mm density in pancreatic head less likely necrotic. - insulin drip discontinued with trigs <500 and persistently low BSG despite D10 aggressive hydration - BMP Q4, repleting hypokalemia PRN - advance to clear liquid diet - continue pain medication PRN Recurrent Pancreatitis - likely familial, on tricor - would benefit from addition of omega-3 FA dvt ppx: lovenox FEN/GI: clear liquid Code status: full code Dispo: Med/Tele. Home after resolution. (2) Pancreatitis: Admission and Anticipated Discharge Date Admission Date: October 31, 2020 Supervising Physician Co-Signing Physician Notes I personally examined the patient and verified all wei points of history and exam, discussed case, and agree with decision making with Dr Mello. Feeling better overall, but still has some pain and discomfort after eating. Vitals noted, in general he is awake and alert pleasant no distress. HEENT normocephalic atraumatic mucous membranes moist. Breathing unlabored no accessory muscle use good effort. Mild epigastric tenderness no guarding rebound or rigidity. Recurrent hypertriglycerides mediated pancreatitisimproving, off insulin drip, slowly advancing diet. Given that he is failing fenofibrate alone, will add fish oil and atorvastatin. Hopefully home in the next day or so, close follow- up. Subjective Feeling well this AM. mild stomach tightness but no pain. no trouble breathing, discomfort. No lightheadedness or dizziness. Review of Systems Review of Systems: All systems reviewed & are unremarkable except as noted in Subjective Physical Exam Physical Exam: Constitutional: obese, in no apparent distress, laying comfortably in bed. Eyes: EOMI, pupils equal and reactive bilaterally, no scleral icterus Cardiac: RRR, no murmurs, gallops or rubs. Normal S1, S2 Pulm: CTA BL, no wheezes, rhonchi, crackles or rubs, moving air well throughout both lungs Abd: soft, nontender, distended, normal bowel sounds, no rebound or guarding Results & Data Results & Data ([facility]) Vital Signs (Past 12 Hours) Vital Signs Temp Pulse Pulse Resp BP Pulse Ox 11/01/20 07:33 71 11/01/20 07:06 36.4 C L 92 H 16 108/68 97 11/01/20 03:56 36.6 C 64 16 121/73 97 11/01/20 00:12 65 10/31/20 23:40 36.5 C 73 16 120/77 98 Laboratory Results 11/01/20 11/01/20 11/01/20 Range/Units 07:52 05:53 01:50 POC Hgb (14.0-18.0) g/dl POC Hct (42-52) % POC Sodium (135-144) mmol/L Sodium 140 140 (136-145) mmol/L POC Potassium (3.3-5.0) mmol/L Potassium 3.6 (3.5-5.1) mmol/L POC Chloride (101-112) mmol/L Chloride 113 H 112 H (98-107) mmol/L Carbon Dioxide 23 25 (21-32) mmol/L POC Total CO2 (24-31) mmol/L Anion Gap 4.0 3.0 (3-11) POC Anion Gap (16-25) mmol/L POC BUN (7-18) mg/dl BUN 6 L 6 L (7-18) mg/dl Creatinine 0.80 0.89 (0.6-1.4) mg/dl POC Creatinine (0.6-1.3) mg/dl Est Cr Clr Drug Dosing 170.0 150.6 ml/min Est GFR ( Amer) 139.9 133.9 ml/min Est GFR (Non-Af Amer) 120.7 115.5 ml/min BUN/Creatinine Ratio 7.5 L 6.3 L (10-20) Glucose 85 79 (70-99) mg/dl POC Glucose 89 (70-99) mg/dl POC Glucose (other) (70-99) mg/dl Calcium 7.9 L 8.0 L (8.5-10.1) mg/dl POC Ioniz Calcium Radha (1.12-1.32) mmol/l Triglycerides 384 H (0-150) mg/dl Specimen Hemolysis 10/31/20 10/31/20 10/31/20 Range/Units 23:43 23:30 22:05 POC Hgb (14.0-18.0) g/dl POC Hct (42-52) % POC Sodium (135-144) mmol/L Sodium (136-145) mmol/L POC Potassium (3.3-5.0) mmol/L Potassium (3.5-5.1) mmol/L POC Chloride (101-112) mmol/L Chloride (98-107) mmol/L Carbon Dioxide (21-32) mmol/L POC Total CO2 (24-31) mmol/L Anion Gap (3-11) POC Anion Gap (16-25) mmol/L POC BUN (7-18) mg/dl BUN (7-18) mg/dl Creatinine (0.6-1.4) mg/dl POC Creatinine (0.6-1.3) mg/dl Est Cr Clr Drug Dosing ml/min Est GFR ( Amer) ml/min Est GFR (Non-Af Amer) ml/min BUN/Creatinine Ratio (10-20) Glucose (70-99) mg/dl POC Glucose 108 H 196 H (70-99) mg/dl POC Glucose (other) (70-99) mg/dl Calcium (8.5-10.1) mg/dl POC Ioniz Calcium Radha (1.12-1.32) mmol/l Triglycerides 416 H (0-150) mg/dl Specimen Hemolysis 10/31/20 10/31/20 10/31/20 Range/Units 21:48 21:29 20:11 POC Hgb (14.0-18.0) g/dl POC Hct (42-52) % POC Sodium (135-144) mmol/L Sodium 140 (136-145) mmol/L POC Potassium (3.3-5.0) mmol/L Potassium 4.2 D (3.5-5.1) mmol/L POC Chloride (101-112) mmol/L Chloride 111 H (98-107) mmol/L Carbon Dioxide 22 (21-32) mmol/L POC Total CO2 (24-31) mmol/L Anion Gap 7.0 (3-11) POC Anion Gap (16-25) mmol/L POC BUN (7-18) mg/dl BUN 6 L (7-18) mg/dl Creatinine 0.92 (0.6-1.4) mg/dl POC Creatinine (0.6-1.3) mg/dl Est Cr Clr Drug Dosing 145.7 ml/min Est GFR ( Amer) 129.8 ml/min Est GFR (Non-Af Amer) 112.0 ml/min BUN/Creatinine Ratio 6.6 L (10-20) Glucose 218 H (70-99) mg/dl POC Glucose 76 90 (70-99) mg/dl POC Glucose (other) (70-99) mg/dl Calcium 8.3 L (8.5-10.1) mg/dl POC Ioniz Calcium Radha (1.12-1.32) mmol/l Triglycerides (0-150) mg/dl Specimen Hemolysis 10/31/20 10/31/20 10/31/20 Range/Units 19:05 18:29 18:03 POC Hgb (14.0-18.0) g/dl POC Hct (42-52) % POC Sodium (135-144) mmol/L Sodium 141 (136-145) mmol/L POC Potassium (3.3-5.0) mmol/L Potassium 3.3 L (3.5-5.1) mmol/L POC Chloride (101-112) mmol/L Chloride 112 H (98-107) mmol/L Carbon Dioxide 22 (21-32) mmol/L POC Total CO2 (24-31) mmol/L Anion Gap 7.0 (3-11) POC Anion Gap (16-25) mmol/L POC BUN (7-18) mg/dl BUN 7 (7-18) mg/dl Creatinine 0.80 (0.6-1.4) mg/dl POC Creatinine (0.6-1.3) mg/dl Est Cr Clr Drug Dosing 167.5 ml/min Est GFR ( Amer) 139.9 ml/min Est GFR (Non-Af Amer) 120.7 ml/min BUN/Creatinine Ratio 8.2 L (10-20) Glucose 80 (70-99) mg/dl POC Glucose 121 H 77 (70-99) mg/dl POC Glucose (other) (70-99) mg/dl Calcium 8.1 L (8.5-10.1) mg/dl POC Ioniz Calcium Radha (1.12-1.32) mmol/l Triglycerides (0-150) mg/dl Specimen Hemolysis 10/31/20 10/31/20 10/31/20 Range/Units 17:50 15:48 15:48 POC Hgb (14.0-18.0) g/dl POC Hct (42-52) % POC Sodium (135-144) mmol/L Sodium (136-145) mmol/L POC Potassium (3.3-5.0) mmol/L Potassium 3.4 L (3.5-5.1) mmol/L POC Chloride (101-112) mmol/L Chloride (98-107) mmol/L Carbon Dioxide (21-32) mmol/L POC Total CO2 (24-31) mmol/L Anion Gap (3-11) POC Anion Gap (16-25) mmol/L POC BUN (7-18) mg/dl BUN (7-18) mg/dl Creatinine (0.6-1.4) mg/dl POC Creatinine (0.6-1.3) mg/dl Est Cr Clr Drug Dosing ml/min Est GFR ( Amer) ml/min Est GFR (Non-Af Amer) ml/min BUN/Creatinine Ratio (10-20) Glucose (70-99) mg/dl POC Glucose 81 (70-99) mg/dl POC Glucose (other) (70-99) mg/dl Calcium (8.5-10.1) mg/dl POC Ioniz Calcium Radha (1.12-1.32) mmol/l Triglycerides 547 H (0-150) mg/dl Specimen Hemolysis 10/31/20 10/31/20 10/31/20 Range/Units 15:43 15:00 14:29 POC Hgb (14.0-18.0) g/dl POC Hct (42-52) % POC Sodium (135-144) mmol/L Sodium (136-145) mmol/L POC Potassium (3.3-5.0) mmol/L Potassium (3.5-5.1) mmol/L POC Chloride (101-112) mmol/L Chloride (98-107) mmol/L Carbon Dioxide (21-32) mmol/L POC Total CO2 (24-31) mmol/L Anion Gap (3-11) POC Anion Gap (16-25) mmol/L POC BUN (7-18) mg/dl BUN (7-18) mg/dl Creatinine (0.6-1.4) mg/dl POC Creatinine (0.6-1.3) mg/dl Est Cr Clr Drug Dosing ml/min Est GFR ( Amer) ml/min Est GFR (Non-Af Amer) ml/min BUN/Creatinine Ratio (10-20) Glucose (70-99) mg/dl POC Glucose 92 119 H (70-99) mg/dl POC Glucose (other) (70-99) mg/dl Calcium (8.5-10.1) mg/dl POC Ioniz Calcium Radha (1.12-1.32) mmol/l Triglycerides (0-150) mg/dl Specimen Hemolysis 10/31/20 10/31/20 10/31/20 Range/Units 14:13 13:39 12:35 POC Hgb (14.0-18.0) g/dl POC Hct (42-52) % POC Sodium (135-144) mmol/L Sodium 141 (136-145) mmol/L POC Potassium (3.3-5.0) mmol/L Potassium (3.5-5.1) mmol/L POC Chloride (101-112) mmol/L Chloride 109 H (98-107) mmol/L Carbon Dioxide 24 (21-32) mmol/L POC Total CO2 (24-31) mmol/L Anion Gap 7.0 (3-11) POC Anion Gap (16-25) mmol/L POC BUN (7-18) mg/dl BUN 8 (7-18) mg/dl Creatinine 0.91 (0.6-1.4) mg/dl POC Creatinine (0.6-1.3) mg/dl Est Cr Clr Drug Dosing 147.3 ml/min Est GFR ( Amer) 131.5 ml/min Est GFR (Non-Af Amer) 113.5 ml/min BUN/Creatinine Ratio 8.8 L (10-20) Glucose 117 H (70-99) mg/dl POC Glucose 93 72 (70-99) mg/dl POC Glucose (other) (70-99) mg/dl Calcium 8.3 L (8.5-10.1) mg/dl POC Ioniz Calcium Radha (1.12-1.32) mmol/l Triglycerides (0-150) mg/dl Specimen Hemolysis 10/31/20 10/31/20 Range/Units 11:05 05:33 POC Hgb 15.0 (14.0-18.0) g/dl POC Hct 44 (42-52) % POC Sodium 141 (135-144) mmol/L Sodium (136-145) mmol/L POC Potassium 3.3 (3.3-5.0) mmol/L Potassium (3.5-5.1) mmol/L POC Chloride 103 (101-112) mmol/L Chloride (98-107) mmol/L Carbon Dioxide (21-32) mmol/L POC Total CO2 26 (24-31) mmol/L Anion Gap (3-11) POC Anion Gap 16.0 (16-25) mmol/L POC BUN 12 (7-18) mg/dl BUN (7-18) mg/dl Creatinine (0.6-1.4) mg/dl POC Creatinine 0.9 (0.6-1.3) mg/dl Est Cr Clr Drug Dosing ml/min Est GFR ( Amer) ml/min Est GFR (Non-Af Amer) ml/min BUN/Creatinine Ratio (10-20) Glucose (70-99) mg/dl POC Glucose 103 H (70-99) mg/dl POC Glucose (other) 109 H (70-99) mg/dl Calcium (8.5-10.1) mg/dl POC Ioniz Calcium Radha 1.24 (1.12-1.32) mmol/l Triglycerides (0-150) mg/dl Specimen Hemolysis (1) Pancreatitis Acute pancreatitis complication: unspecified Chronicity: acute Pancreatitis type: unspecified pancreatitis type Qualified Code(s): K85.90 - Acute pancreatitis without necrosis or infection, unspecified
[2020-11-01] MEDS ORDERED: POTASSIUM CHLORIDE CRTAB 20 MEQ TABCR PO STA (09:54)
[2020-11-01 10:03] LABS: BUN Creatinine Ratio 7.8 (10-20); Calcium 8.4 mg/dl (8.5-10.1); Creatinine Clr Calc Pharmacy 161.9 ml/min; Est GFR (African American) 137.1 ml/min; Est GFR (Non-African American) 118.3 ml/min; Potassium 3.7 mmol/L (3.5-5.1)
[2020-11-01] MEDS: OMEGA-3 (PURIFIED FISH OIL) 1 GM CAP PO SCH ×2 (10:24→20:00)
[2020-11-01] MEDS: ATORVASTATIN 40 MG TAB PO SCH (10:32)
[2020-11-01 13:24] LABS: BUN Creatinine Ratio 6.8 (10-20); Calcium 8.3 mg/dl (8.5-10.1); Creatinine Clr Calc Pharmacy 152.8 ml/min; Est GFR (African American) 133.9 ml/min; Est GFR (Non-African American) 115.5 ml/min
[2020-11-01 18:06] LABS: BUN Creatinine Ratio 6.4 (10-20); Calcium 8.9 mg/dl (8.5-10.1); Est GFR (African American) 136.5 ml/min; Est GFR (Non-African American) 117.7 ml/min; Potassium 3.7 mmol/L (3.5-5.1)
--- NOTE | 2020-11-01 19:32 | Billing Data ---
Date of Service November 01, 2020 Coding Level of Care Code 28156 Subseq Obs Care Lvl 3
[2020-11-01 22:00] LABS: Creatinine Clr Calc Pharmacy 156.3 ml/min; Est GFR (African American) 135.2 ml/min; Est GFR (Non-African American) 116.6 ml/min; Potassium 3.5 mmol/L (3.5-5.1)
[2020-11-01] MEDS ORDERED: CALCIUM CARBONATE 500 MG CHEWABLE TAB PO PRN (23:08)
[2020-11-02 01:08] LABS: Calcium 9.1 mg/dl (8.5-10.1); Est GFR (African American) 136.5 ml/min; Est GFR (Non-African American) 117.7 ml/min; Potassium 3.4 mmol/L (3.5-5.1)
[2020-11-02 07:49] VITALS: BP 106/67; TEMP 98.2; O2SAT 97
[2020-11-02] MEDS: ATORVASTATIN 40 MG TAB PO SCH (09:27)
[2020-11-02] MEDS: OMEGA-3 (PURIFIED FISH OIL) 1 GM CAP PO SCH (09:27)
--- NOTE | 2020-11-02 13:06 | Discharge Summary ---
Date of Service November 02, 2020 Admission HPI Per Admitting Provider 30 yo M with a PMH of recurrent hypertriglyceridemia causing pancreatitis, in ER for sudden onset mid abdominal pain. [facility]. States he did well for after discharge and then within the last 4 days has been feeling more ill. Has been walking 10,000 steps a day, eating diet of meat, vegetables, avoiding carbs and no fats. has been taking his daily fibrate medication. Reports Nausea without vomiting, abdominal pain worse with eating larger meals, persistent non-bloody diarrhea with 4 bowel movements a day. says stools are sometimes foamy, pale colored. No alcohol intake. Reports havign issues with pancreatitis for the past 3 years, and was started on fenofibrate by his doctor in [place] at that time. Has been hospitalized for the condition 2-3 times since. No family hx pancreatitis, DM2. unsure of family hx hypertriglyceridemia. Admission Exam Per Admitting Provider Constitutional: obese, in no apparent distress, laying comfortably in bed. Eyes: EOMI, pupils equal and reactive bilaterally, no scleral icterus Cardiac: RRR, no murmurs, gallops or rubs. Normal S1, S2 Pulm: CTA BL, no wheezes, rhonchi, crackles or rubs, moving air well throughout both lungs Abd: soft, nontender, distended, normal bowel sounds, no rebound or guarding Extremities: 2+ peripheral pulses, no edema Neuro: no focal deficits, moving all 4 limbs, A&Ox3 Principal Diagnosis Acute pancreatitis Discharge Exam Constitutional WD/WN, vitals as above Eyes PERRL, conjunctivae normal, anicteric sclerae Respiratory normal respiratory effort, lungs clear to auscultation Cardiovascular RRR, no murmur, no edema Gastrointestinal (Abdomen) normal bowel sounds, soft, nontender, no hepatosplenomegaly Discharge Data Allergies Allergy/AdvReac Type Severity Reaction Status Date / Time No Known Allergies Allergy Unverified 10/06/20 23:00 Consultations 10/31/20 06:48 ED Decision to Admit Stat Ordered Studies 10/31/20 05:04 CT abd pelvis IV con only Urgent Hospital Course (1) Hypertriglyceridemia, essential: - lipase ~585 - CT abdomen showing inflammation surrounding pancreatic head, less than previous. 9 mm density in pancreatic head less likely necrotic. - insulin drip discontinued with trigs <500 and persistently low BSG despite D10 aggressive hydration - BMP Q4, repleting hypokalemia PRN - advance to clear liquid diet - continue pain medication PRN Recurrent Pancreatitis - likely familial, on tricor - would benefit from addition of omega-3 FA dvt ppx: lovenox FEN/GI: clear liquid Code status: full code Dispo: Med/Tele. Home after resolution. (2) Pancreatitis: Total Time Total Time Spent Total Time Spent (In Minutes): <30 Discharge Plan Discharge Items Patient Disposition: Home - Self-Care Reason For Visit: RECURRRENT PANCREATITIS Discharge Diagnosis: recurrent pancreatitis Condition on Discharge: Good Activity: Resume your previous activity Non-emergency contact: Primary Care Provider Call non-emergency contact if: your symptoms worsen Follow-up/Referrals: [facility] [Primary Care Provider] - Ole Johnson DO [Resident] - 11/13/20 12:50 pm Diet: Low Fat Addtl Attending Provider Instructions: Recurrent Pancreatitis due to High Triglycerides: your high triglycerides were controlled with insulin in the hospital and will require additional medications to control them in the future. We have added Atorvastatin 40mg daily and Fish Oil 1g twice a day to help decrease your triglycerides IN ADDITION to the fibrate medication you're already on and the diet and lifestyle modifications you've already been doing. You will need to follow up with your PCP Dr. Ole Johnson within 7-10 days of discharge to repeat labwork and discuss further plans and prevention of future pancreatitis episodes. Pending Studies at Discharge: No Stand-Alone Forms: [facility], Smoking Cessation Medications and DC Order Prescriptions: New atorvastatin 40 mg Tablet 40 mg PO QAM 30 Days Qty: 30 RF: 0 Fish Oil 340-1,000 mg Capsule 1 g PO BID 30 Days Qty: 45 RF: 0 dicyclomine 10 mg capsule 10 mg PO ONCE 10 Days Qty: 10 RF: 0 Continued fenofibrate nanocrystallized [Tricor] 145 mg Tablet 145 mg PO DAILY RF: 0 Discharge Orders: Discharge Order (Routine); Ordered 11/02/20 Ordered By: Natividad Wheeler/Other Patient Handouts: Understanding Pancreatitis Admission Data Admit Date/Time: 10/31/20 07:27 Attending Provider: Cosme Watson Admit Provider: Maura Mello Primary Care Provider: [facility] Other Providers: Refugio Lutz Other Interventions: Discharge Summary Assessment (RN) Last Done: 11/02/20 14:07 Supervising Physician Co-Signing Physician Notes I personally examined the patient and verified all wei points of history and exam, discussed case, and agree with decision making with Dr Douglas Eating regular food with minimal pain. Still just a little bit of cramping at times. Feels up to going home. Vitals noted, in general he is awake and alert pleasant no distress. HEENT normocephalic atraumatic mucous membranes moist. Breathing unlabored no accessory muscle use good effort. Minimal epigastric tenderness no guarding rebound or rigidity. Recurrent hypertriglycerides mediated pancreatitisimproving and stable for home. Treating triglycerides for now with fenofibrate, fatty acids, atorvastatin, and lifestyle. Close outpatient follow-up. Discussed risk/benefits/side effects of this approach. Otherwise as above, stable for home. Resident Activity Tracking Resident Involvement: Resident Care Provided Care Provided: Adult Hospital Medicine
[2020-11-02 14:09] VITALS: PULSE 91
--- NOTE | 2020-11-02 20:38 | Billing Data ---
Date of Service November 02, 2020 Coding Level of Care Code 76991 OBS Care - Discharge Comment disregard <30mins dc sorry/thanks!
--- NOTE | 2020-11-02 20:38 | Billing Data ---
Date of Service November 02, 2020 Coding Level of Care Code D/C DAY MANAGEMENT <30 MINS
== END 2020-11-02 15:42 | disposition home or self-care (01) ==
LOC: ED 04:55 → 2W 04:55 → 3N 11-01 21:37

== ENCOUNTER 2022-06-29 02:42 | Inpatient (IN) ==
[2022-06-29] MEDS ORDERED: FAMOTIDINE 20MG IV PUSH 20 MG/5 ML SYR IV STA (02:50)
[2022-06-29] MEDS ORDERED: SODIUM CHLORIDE 0.9% 1000ML 1,000 ML IV STA (02:50)
[2022-06-29] MEDS ORDERED: ONDANSETRON INJ 2 MG/ML 2 ML VIAL IV STA ×2 (02:50→05:54)
--- NOTE | 2022-06-29 03:06 | Emergency Department Note ---
History of Present Illness General Chief complaint: Abdominal Pain Stated complaint: ABD PAIN FOR 3 DAYS Time Seen by Provider: 06/29/22 02:50 History of Present Illness Maximum Pain Intensity: 8 This 32-year-old male with history of pancreatitis presents to the ER complaining of epigastric pain for the past few days steadily getting worse. Patient states been overeating the past week as he was fasting for Ramadan. Patient denies chest pain, dyspnea, fevers, flulike illness. No heavy alcohol use. Home Medications Medication Instructions Recorded Confirmed Type fenofibrate nanocrystallized 145 145 mg PO DAILY 10/06/20 06/29/22 History mg tablet (Tricor) atorvastatin 40 mg tablet 40 mg PO DAILY 06/29/22 06/29/22 History Allergies Allergy/AdvReac Type Severity Reaction Status Date / Time No Known Allergies Allergy Verified 06/29/22 02:59 Past Med/Surg History Medical History High cholesterol Pancreatitis Surgical History Hx of cholecystectomy Social History Smoking Status: Current every day smoker Tobacco Type: E-cigarettes / Vaping Second Hand Exposure: No; Do You Dip or Chew Tobacco: No; Hx Alcohol Use: No Hx Substance Use: No Preferred Language: Kazakh Communication Ability: Effective Power Line Lineman Required: No Beliefs That Will Affect Care: None marital status: Current Living Situation: Spouse Current Living Situation Comment: apartment on campus Other Information That Helps Us Care for You: No Feels Safe at Home: Yes Safety Concerns: Feels Safe At This Time Assistive Devices: None Review of Systems A total of 10 systems reviewed and were otherwise negative Physical Exam Vital Signs Vital Signs - 24 hr 06/29/22 02:46 06/29/22 03:14 06/29/22 03:59 Temperature 36.4 C L Temperature Source Temporal Artery Scan Pulse Rate 83 66 Pulse Rate [Finger] Pulse Rhythm [Finger] Respiratory Rate 18 Respiratory Effort / Characteristics Non-Labored Spontaneous Respiratory Depth Normal Respiratory Pattern Blood Pressure 155/92 H Blood Pressure [Left Arm] Blood Pressure Mean 113 Blood Pressure Mean [Left Arm] Pulse Oximetry 96 96 Oxygen Delivery Method Room Air Room Air Sepsis Recent Fever Within 48 Hours No Sepsis New/Unexplained Change in Mental Status No Sepsis Action Taken by Nursing No Action Required 06/29/22 05:12 06/29/22 08:25 06/29/22 07:00 Temperature Temperature Source Pulse Rate 79 Pulse Rate [Finger] 69 76 Pulse Rhythm [Finger] Regular Respiratory Rate 20 18 Respiratory Effort / Characteristics Non-Labored Spontaneous Non-Labored Respiratory Depth Normal Normal Respiratory Pattern Regular Blood Pressure Blood Pressure [Left Arm] 109/72 110/70 Blood Pressure Mean Blood Pressure Mean [Left Arm] 84 83 Pulse Oximetry 98 95 Oxygen Delivery Method Room Air Room Air Sepsis Recent Fever Within 48 Hours Sepsis New/Unexplained Change in Mental Status Sepsis Action Taken by Nursing 06/29/22 09:00 Temperature Temperature Source Pulse Rate Pulse Rate [Finger] 80 Pulse Rhythm [Finger] Regular Respiratory Rate 18 Respiratory Effort / Characteristics Non-Labored Respiratory Depth Normal Respiratory Pattern Regular Blood Pressure Blood Pressure [Left Arm] 108/72 Blood Pressure Mean Blood Pressure Mean [Left Arm] 84 Pulse Oximetry 96 Oxygen Delivery Method Room Air Sepsis Recent Fever Within 48 Hours Sepsis New/Unexplained Change in Mental Status Sepsis Action Taken by Nursing VITALS: Vitals are noted on the nurse's note and reviewed by myself. Vital signs stable. GENERAL: Pleasant male, in no acute distress, nondiaphoretic, well-developed well-nourished. SKIN: The skin was without rashes, erythema, edema, or bruising. There is no tenting of the skin. Capillary reflex less than 2 seconds. HEAD: Normocephalic atraumatic. EARS: External auditory canals clear, EYES: Pupils equal round and reactive to light and accommodation. Conjunctivae without injection, sclerae without icterus. Extraocular movements intact. NOSE: Patent, turbinates without inflammation or discharge. MOUTH: Mucous membranes moist. Pharynx without erythema or exudate. Uvula midline. Airway patent. Tongue does not deviate. NECK: Supple without nuchal rigidity. No lymphadenopathy. No thyromegaly. Cervical spine is nontender. No JVD. HEART: Regular rate and rhythm without murmurs gallops or rubs. LUNGS: Clear to auscultation bilaterally without wheezes, rales or rhonchi. No retractions or accessory muscle use. ABDOMEN: Positive bowel sounds x 4. Normal tympanic percussion. Soft, tender epigastric region, without masses or organomegaly. Sharp sign negative. No guarding or rebound tenderness. No CVA tenderness MUSCULOSKELETAL: No muscle atrophy, erythema, or edema noted. NEURO: Patient was alert and oriented to person place and time. Normal sensation to light and sharp touch. No focal neurological deficits. Course Administered Medications Dextrose (Dextrose 50% 50 Ml Syringe) 25 ml IV UD PRN PRN Reason: BSG below 70mg/dL Stop: 07/29/22 09:13 Last Admin: 06/29/22 17:07 Dose: 25 ml Documented By: Admin: 06/29/22 15:39 Dose: 25 ml Documented By: JOSE Acetaminophen (Ofirmev) 1,000 mg in 100 mls @ 400 mls/hr IV Q8H PRN PRN Reason: pain or fever Stop: 07/02/22 12:11 Last Infusion: 06/29/22 13:01 Dose: 0 mls/hr Documented By: Admin: 06/29/22 12:41 Dose: 400 mls/hr Documented By: JOSE Insulin Human Regular 250 (units/ Sodium Chloride) 250 mls @ 11.7 mls/hr IV .[id number] CRISTAL; Protocol Stop: 07/29/22 12:29 Last Admin: 06/29/22 13:23 Dose: 11.7 units/hr, 11.7 mls/hr Documented By: JOSE Co-signed By: GRICELDA Dextrose (D10w) 1,000 mls @ 100 mls/hr IV .Q10H CRISTAL Stop: 07/29/22 16:59 Last Admin: 06/29/22 17:06 Dose: 100 mls/hr Documented By: JOSE Lactated Ringer's (Lr) 1,000 mls @ 100 mls/hr IV .Q10H CRISTAL Stop: 07/29/22 16:59 Last Admin: 06/29/22 17:15 Dose: 100 mls/hr Documented By: JOSE Ketorolac Tromethamine (Ketorolac Tromethamine 15 Mg/Ml Vial) 15 mg IV Q6H PRN PRN Reason: Pain Stop: 07/04/22 14:08 Last Admin: 06/29/22 20:40 Dose: 15 mg Documented By: Admin: 06/29/22 14:20 Dose: 15 mg Documented By: JOSE Discontinued Medications Fentanyl Citrate (Fentanyl Citrate Pf 100 Mcg/2 Ml Vial) 50 mcg IV Q15M PRN PRN Reason: Pain Stop: 07/13/22 06:47 Last Admin: 06/29/22 07:27 Dose: 50 mcg Documented By: NANCY Sodium Chloride (Nss 1000ml) 1,000 mls @ 999 mls/hr IV .Q1H1M STA Stop: 06/29/22 03:50 Last Infusion: 06/29/22 04:16 Dose: 0 mls/hr Documented By: Admin: 06/29/22 03:05 Dose: 999 mls/hr Documented By: ROBERTA Famotidine (Pepcid 20mg Iv Push) 20 mg in 5 mls @ 2.5 mls/min IV NOW STA Stop: 06/29/22 02:51 Last Admin: 06/29/22 03:05 Dose: 2.5 mls/min Documented By: ROBERTA Insulin Human Regular 250 (units/ Sodium Chloride) 250 mls @ 12.01 mls/hr IV .[id number] CRISTAL; Protocol Stop: 07/29/22 12:29 Last Infusion: 06/29/22 16:30 Dose: 0 units/kg/hr, 0 mls/hr Documented By: JOSE Co-signed By: GRICELDA Admin: 06/29/22 13:23 Dose: 0.1 units/kg/hr, 11.7 mls/hr Documented By: JOSE Co-signed By: AKASH Potassium Chloride/Dextrose/Sod Cl (D5w And 1/2nss + 20meq Kcl) 20 meq in 1,000 mls @ 75 mls/hr IV .[id number] CRISTAL Stop: 07/29/22 09:14 Last Admin: 06/29/22 12:16 Dose: Not Given Documented By: JOSE Potassium Chloride/Dextrose/Sod Cl (D5nss + 20meq Kcl) 20 meq in 1,000 mls @ 75 mls/hr IV .[id number] CRISTAL Stop: 07/29/22 12:29 Last Infusion: 06/29/22 13:59 Dose: 0 mls/hr Documented By: Admin: 06/29/22 13:23 Dose: 75 mls/hr Documented By: JOSE Dextrose/Lactated Ringer's (D5w And Lactated Ringers) 1,000 mls @ 250 mls/hr IV .Q4H CRISTAL Stop: 07/29/22 13:44 Last Infusion: 06/29/22 17:21 Dose: 0 mls/hr Documented By: Infusion: 06/29/22 15:49 Dose: 250 mls/hr Documented By: Admin: 06/29/22 13:57 Dose: 200 mls/hr Documented By: JOSE Ioversol (Optiray 320 100ml) 83 ml IV ONCE ONE Stop: 06/29/22 06:51 Last Admin: 06/29/22 06:45 Dose: 83 ml Documented By: DANAE Morphine Sulfate (Morphine Sulfate 4 Mg/Ml 1 Ml Carp\Vial) 4 mg IV NOW STA Stop: 06/29/22 05:55 Last Admin: 06/29/22 05:58 Dose: 4 mg Documented By: ROBERTA Ondansetron HCl (Ondansetron Inj 2 Mg/Ml 2 Ml Vial) 4 mg IV NOW STA Stop: 06/29/22 02:51 Last Admin: 06/29/22 03:06 Dose: 4 mg Documented By: ROBERTA Ondansetron HCl (Ondansetron Inj 2 Mg/Ml 2 Ml Vial) 4 mg IV NOW STA Stop: 06/29/22 05:55 Last Admin: 06/29/22 05:58 Dose: Not Given Documented By: ROBERTA Medical Decision Making Medical Records Attestation: I reviewed the patient's medical records. Home Medications Current Medication List: was personally reviewed by me Laboratory Data Attestation: I reviewed the patient's lab results. 06/29/22 03:00 06/29/22 05:08 Lab Results 06/29/22 06/29/22 06/29/22 Range/Units 03:00 03:00 03:12 WBC 8.86 (4.8-10.8) K/ul RBC 5.07 (4.70-6.10) M/uL Hgb 16.0 (14.0-18.0) g/dl Hct 41.8 L (42.0-52.0) % MCV 82.4 (80.0-100.0) fL MCH 31.6 (25.0-34.0) pg MCHC 38.3 H (32.0-36.0) g/dL RDW Std Deviation 38.1 (36.4-46.3) fL RDW Coeff of Roxane 13.3 (11.5-14.5) % Plt Count 331 (130-400) K/uL MPV 9.9 (9.4-12.4) fL Immature Gran % (Auto) 0.2 % Neut % (Auto) 60.2 % Lymph % (Auto) 30.6 % Dillon % (Auto) 7.2 % Eos % (Auto) 1.2 % Baso % (Auto) 0.6 % Neut # (Auto) 5.33 (1.40-6.50) K/uL Lymph # (Auto) 2.71 (1.2-3.4) K/uL Dillon # (Auto) 0.64 H (0.11-0.59) K/uL Eos # (Auto) 0.11 (0-0.50) K/uL Baso # (Auto) 0.05 (0-0.2) K/uL Immature Gran # (Auto) 0.02 (0.01-0.20) K/uL Sodium Cancelled Potassium Cancelled Chloride Cancelled Carbon Dioxide Cancelled Anion Gap Cancelled BUN Cancelled Creatinine Cancelled Est Cr Clr Drug Dosing Cancelled Est GFR ( Amer) Cancelled Est GFR (Non-Af Amer) Cancelled BUN/Creatinine Ratio Cancelled Glucose Cancelled Calcium Cancelled Total Bilirubin Cancelled AST Cancelled ALT Cancelled Alkaline Phosphatase Cancelled Total Protein Cancelled Albumin Cancelled Globulin Cancelled Albumin/Globulin Ratio Cancelled Lipase 228 H (11-82) U/L SARS-CoV-2, RNA, NAAT NEGATIVE (NEGATIVE) 06/29/22 Range/Units 05:08 WBC (4.8-10.8) K/ul RBC (4.70-6.10) M/uL Hgb (14.0-18.0) g/dl Hct (42.0-52.0) % MCV (80.0-100.0) fL MCH (25.0-34.0) pg MCHC (32.0-36.0) g/dL RDW Std Deviation (36.4-46.3) fL RDW Coeff of Roxane (11.5-14.5) % Plt Count (130-400) K/uL MPV (9.4-12.4) fL Immature Gran % (Auto) % Neut % (Auto) % Lymph % (Auto) % Dillon % (Auto) % Eos % (Auto) % Baso % (Auto) % Neut # (Auto) (1.40-6.50) K/uL Lymph # (Auto) (1.2-3.4) K/uL Dillon # (Auto) (0.11-0.59) K/uL Eos # (Auto) (0-0.50) K/uL Baso # (Auto) (0-0.2) K/uL Immature Gran # (Auto) (0.01-0.20) K/uL Sodium 140 Potassium 4.6 Chloride 110 H Carbon Dioxide 17 L Anion Gap 13 H BUN 16 Creatinine 1.24 Est Cr Clr Drug Dosing 114.2 Est GFR ( Amer) 89.2 Est GFR (Non-Af Amer) 77.0 BUN/Creatinine Ratio 12.9 Glucose 121 H Calcium 8.5 L Total Bilirubin 0.6 AST 45 H ALT 62 H Alkaline Phosphatase 35 Total Protein 6.4 Albumin 4.0 Globulin 2.4 L Albumin/Globulin Ratio 1.7 Lipase (11-82) U/L SARS-CoV-2, RNA, NAAT (NEGATIVE) Imaging Data Attestation: I personally reviewed and interpreted this imaging study as follows: MDM Narrative Prior records/ancillary studies reviewed. Triage Nursing notes reviewed. Additional history obtained from family. The patient's history was concerning for abdominal pain. Differential diagnosis: Etiologies such as appendicitis, diverticulitis, PUD, biliary pathology, UTI, pancreatitis, obstruction, mesenteric ischemia, aortic pathology, infections, inflammatory bowel disease, renal colic, as well as others were entertained. Physical examination findings: As above. ER treatment provided: An order was placed for continuous cardiac monitoring. The monitor shows a rate of 60-100 with a sinus rhythm per my Independent interpretation. IV fluids Pepcid and Zofran were ordered On reassessment the patient felt better. Diagnostics interpreted by me: The labs Independently Interpreted by myself revealed elevated lipase Mildly elevated LFTs which are similar to prior Imaging studies: Pending at time of signout Case signed out to oncoming provider pending CAT scan and labs in stable condition. Exam and history seem consistent with abdominal pain with concerns for pancreatitis. Labs and diagnostics are pending at time of signout. By the evaluation outlined above emergent etiologies such as appendicitis, diverticulitis, PUD, biliary pathology, UTI, obstruction, mesenteric ischemia, aortic pathology, infections, inflammatory bowel disease, renal colic, as well as others were deemed relatively unlikely. The pt informed about the findings as listed above. All questions were answered and pleased with the treatment. The chart was completed utilizing [employer] Speech voice recognition software. Grammatical errors, random word insertions, pronoun errors, and incomplete sentences are an occassional consequence of this system due to software limitations, ambient noise, and hardware issues. Any formal questions or concerns about the content, text, or information contained within the body of this dictation should be directly addressed to the physician activity assistant for clarification. Impression & Plan Pancreatitis, Hypertriglyceridemia, essential, Abdominal pain, acute Discharge Plan Visit Data Chief Complaint: Abdominal Pain Stated Complaint: ABD PAIN FOR 3 DAYS ED Provider: Selvin Ham ED Midlevel Provider: Giuliana Dallas Discharge Problem: Pancreatitis, Hypertriglyceridemia, essential, Abdominal pain, acute Patient Disposition: Admitted As Inpatient Condition: Good Discharge Instructions Interventions: ED Discharge Assessment Last Done: 06/29/22 11:51 Pancreatitis Qualifiers: Chronicity: acute Pancreatitis type: unspecified pancreatitis type Acute pancreatitis complication: unspecified Qualified Code(s): K85.90 - Acute pancreatitis without necrosis or infection, unspecified
[2022-06-29 04:24] LABS: Basophils # (auto) 0.05 K/uL (0-0.2); Basophils % (auto) 0.6 %; Eosinophils # (auto) 0.11 K/uL (0-0.50); Eosinophils % (auto) 1.2 %; Hematocrit (blood only) 41.8 % (42.0-52.0); Immature Granulocytes # (auto) 0.02 K/uL (0.01-0.20); Immature Granulocytes % (auto) 0.2 %; Lymphocytes # (auto) 2.71 K/uL (1.2-3.4); Lymphocytes % (auto) 30.6 %; Mean Corpuscular Hemoglobin 31.6 pg (25.0-34.0); Mean Corpuscular Hgb Conc 38.3 g/dL (32.0-36.0); Mean Corpuscular Volume 82.4 fL (80.0-100.0); Mean Platelet Volume 9.9 fL (9.4-12.4); Monocytes # (auto) 0.64 K/uL (0.11-0.59); Monocytes % (auto) 7.2 %; Neutrophils # (auto) 5.33 K/uL (1.40-6.50); Neutrophils % (auto) 60.2 %; Platelet Count 331 K/uL (130-400); RDW Coefficient of Variation 13.3 % (11.5-14.5); RDW Standard Deviation 38.1 fL (36.4-46.3); Red Blood Count 5.07 M/uL (4.70-6.10); White Blood Count 8.86 K/ul (4.8-10.8)
[2022-06-29] MEDS ORDERED: MoRPHine SULFATE 4 MG/ML 1 ML CARP\\VIAL IV STA (05:54)
[2022-06-29 06:25] LABS: Potassium 4.6 mmol/L (3.5-5.1)
[2022-06-29 06:26] LABS: Bilirubin,Total 0.6 mg/dl (0.2-1.0); Calcium 8.5 mg/dl (8.6-10.3)
[2022-06-29 06:29] LABS: Albumin Globulin Ratio 1.7 (0.9-2); BUN Creatinine Ratio 12.9 (10-20); Creatinine Clr Calc Pharmacy 114.2 ml/min; Est GFR (African American) 89.2 ml/min; Globulin 2.4 gm/dl (2.5-4.0); Total Protein 6.4 gm/dl (6.0-8.3)
[2022-06-29] MEDS ORDERED: fentaNYL citrate PF 100 MCG/2 ML VIAL IV PRN (06:48)
[2022-06-29] MEDS ORDERED: OPTIRAY 320 100ml IV ONE (06:50)
--- NOTE | 2022-06-29 08:34 | CT Scan Report ---
CT abd pelvis IV con only CLINICAL HISTORY: mid abd pain, hx pancreatitis TECHNIQUE: Helical axial images of the abdomen and pelvis were obtained and displayed. Automated dose lowering techniques and/or adjustment according to patient size were utilized for this exam. This e xam was performed with intravenous contrast. CT DOSE: 1184.36 mGy.cm COMPARISON: Comparison is made to CT abdomen pelvis 10/31/2020 FINDINGS: Lower chest: No acute abnormality. Liver: Hepatic steatosis is noted. Gallbladder and biliary tree: Patient is status post cholecystectomy. No intra- or extrahepatic bilia ry ductal dilation. Pancreas: Minimal fat stranding is seen about the pancreatic tail, increased from prior exam. Spleen: Unremarkable. Adrenals: Unremarkable. Kidneys and ureters: Unremarkable. Bladder: Unremarkable. Reproductive organs: Unremarkable. Bowel: The appendix is normal. Lymph nodes Retroperitoneal: Unremarkable. Pelvic: Unremarkable. Mesenteric: Unremarkable. Peritoneum: Minimal fat stranding is seen about the pancreatic tail. No fluid collections are seen. Vessels: Unremarkable. Abdominal wall: Unremarkable. Bones: Minimal degenerative changes are seen in the thoracic spine. IMPRESSION: 1. Findings compatible with very mild pancreatitis of the pancreatic tail. No necrosis or peripancre atic fluid collection is seen. 2. Hepatic steatosis. 3. Additional findings as above. ACT 112: Negative or not required by law. Electronically signed by: Refugio Gonzalez M.D. 06/29/2022 8:32 AM
--- NOTE | 2022-06-29 09:14 | Emergency Department Note ---
ED Visit Note This patient was received in signout to me from Tisha Lorenzo PA-C at change of shift. Patient presents with epigastric abdominal pain x3 days. He has a history of pancreatitis. At time of signout, patient had just gone to CT scan and was awaiting radiology read of his imaging. CT was reviewed by radiology as below and showed a mild pancreatitis. I personally reevaluated the patient and he was feeling better, but states that as soon as the pain medications wear off his pain returns. He will be admitted. I spoke with the [facility] ospitalist service, who agreed to evaluate the patient for further care. Abdomen/Pelvis CT 06/29/22 02:50 CT abd pelvis IV con only CLINICAL HISTORY: mid abd pain, hx pancreatitis TECHNIQUE: Helical axial images of the abdomen and pelvis were obtained and displayed. Automated dose lowering techniques and/or adjustment according to patient size were utilized for this exam. This exam was performed with intravenous contrast. CT DOSE: 1184.36 mGy.cm COMPARISON: Comparison is made to CT abdomen pelvis 10/31/2020 FINDINGS: Lower chest: No acute abnormality. Liver: Hepatic steatosis is noted. Gallbladder and biliary tree: Patient is status post cholecystectomy. No intra- or extrahepatic biliary ductal dilation. Pancreas: Minimal fat stranding is seen about the pancreatic tail, increased from prior exam. Spleen: Unremarkable. Adrenals: Unremarkable. Kidneys and ureters: Unremarkable. Bladder: Unremarkable. Reproductive organs: Unremarkable. Bowel: The appendix is normal. Lymph nodes Retroperitoneal: Unremarkable. Pelvic: Unremarkable. Mesenteric: Unremarkable. Peritoneum: Minimal fat stranding is seen about the pancreatic tail. No fluid collections are seen. Vessels: Unremarkable. Abdominal wall: Unremarkable. Bones: Minimal degenerative changes are seen in the thoracic spine. IMPRESSION: 1. Findings compatible with very mild pancreatitis of the pancreatic tail. No necrosis or peripancreatic fluid collection is seen. 2. Hepatic steatosis. 3. Additional findings as above. ACT 112: Negative or not required by law. Electronically signed by: Refugio Gonzalez M.D. 06/29/2022 8:32 AM .
[2022-06-29] MEDS ORDERED: D5W AND 1/2NSS + 20MEQ KCL 20 MEQ/1,000 ML BAG IV SCH (09:15)
--- NOTE | 2022-06-29 09:21 | History & Physical Report ---
Date of Service June 29, 2022 Assessment & Plan (1) Hypertriglyceridemia, essential: Plan: 32 y/o M w/ PmHx hypertriglyceridemia induced pancreatitis admitted for just that. Abd pain/Hypertriglyceridemia/Pancreatitis: -Lipase 228, triglycerides 2968. -CT A&P w/ very mild pancreatitis w/o necrosis or peripancreatic fluid. -Patient ordered clears for diet, advance as tolerated. -Started on insulin 0.1mg/kg/hr along with D5/NSS @75ml/hr for high triglycerides. -Will monitor triglycerides q12 hours until <500 while on insulin. -Continue home statin and fenofibrate qAM if able to tolerate. -hemodynamically stable, not septic appearing, admit to med/surg for management. F/E/N/GI: Clear liquids when able, low fat, lactose intolerant (no dairy/cheese). DVT Prophylaxis: SCD Code status: Full code. Dispo: Med/surg. (2) Abdominal pain, acute: (3) Pancreatitis: History of Present Illness Chief Complaint: epigastric and abdominal pain x3days Primary Care Provider: [facility] Khanh is a 32 year old male w/ PmHx of recurrent hypertriglyceride induced pancreatitis coming in to the ED for abdominal pain and epigastric pain for 3-4 days. Patient states starting Thursday he developed epigastric and upper abdominal pain. The pain was present and got worse over the course of Thursday and Thursday. He tried to wait it out but the pain was so bad Thursday he thought maybe this is another episode of pancreatitis similar to the past ones so he decided to come in to the ED. He has had some nausea but no vomiting. He last ate yesterday at lunch. He states he fasted for adan and actually lost around 7kg during that time however after Ramadan he started eating heavy foods again such as cheeses which he knows he is not supposed to eat. He denies any fevers, chills, vomiting, myalgia, cough, chest pain, shortness of breath. He had diarrhea then has not had a bowel movement for a day or so. In the ED CBC unremarkable, CMP w/ mild inc AST/ALT at 45/62, Glucose 121, Lipase 228, and triglycerides 2968. CT A&P revealed findings compatible with mild pancreatitis at pancreatic tail w/o necrosis or peripancreatic fluid, hepatic steatosis. Allergies Allergy/AdvReac Type Severity Reaction Status Date / Time No Known Allergies Allergy Verified 06/29/22 02:59 Home Medications Medication Instructions Recorded Confirmed Type fenofibrate nanocrystallized 145 145 mg PO DAILY 10/06/20 06/29/22 History mg tablet (Tricor) atorvastatin 40 mg tablet 40 mg PO DAILY 06/29/22 06/29/22 History Past Med/Surg History Medical History High cholesterol Pancreatitis Surgical History Hx of cholecystectomy Social History Smoking Status: Current every day smoker Tobacco Type: E-cigarettes / Vaping Second Hand Exposure: No; Do You Dip or Chew Tobacco: No; Hx Alcohol Use: No Hx Substance Use: No Preferred Language: Setswana Communication Ability: Effective Mastic Floor Layer Required: No Beliefs That Will Affect Care: None marital status: Current Living Situation: Spouse Current Living Situation Comment: apartment on campus Other Information That Helps Us Care for You: No Feels Safe at Home: Yes Safety Concerns: Feels Safe At This Time Assistive Devices: None Review of Systems Review of Systems: As per HPI. Physical Exam Constitutional: WD/WN, vitals as above Eyes: PERRL, conjunctivae normal, anicteric sclerae Respiratory: normal respiratory effort, lungs clear to auscultation Cardiovascular: RRR, no murmur, no edema Gastrointestinal (Abdomen): BS+, non-distended, soft, mildly tender to palpation upper abdominal region and epigastric region. No rebound or gaurding. Psychiatric: A+Ox3, euthymic affect Results & Data Results & Data Vital Signs (Past 12 Hours) Vital Signs Temp Pulse Pulse Resp BP BP Pulse Ox 06/29/22 08:25 79 06/29/22 05:12 69 20 109/72 98 06/29/22 03:59 66 06/29/22 03:14 96 06/29/22 02:46 36.4 C L 83 18 155/92 H 96 O2 Del Method 06/29/22 08:25 06/29/22 05:12 Room Air 06/29/22 03:59 06/29/22 03:14 Room Air 06/29/22 02:46 Room Air Code Status & VTE Plan VTE Prophylaxis Plan VTE Prophylaxis will be ordered: Yes Supervising Physician Co-Signing Physician Notes I personally examined the patient and verified all wei points of history and exam, discussed case, and agree with decision making with Dr Bonilla feeling reasonably OK, pain well controlled vitals noted sleeping but easily awoken nad heent nc at mmm abd soft mild epigastric tenderness at worst no guarding no rebound hypertriglyceride pancreatitis - insulin gtt, follow TGs until <500, clinically looking well. titrate dextrose to maintain euglycemia. diet related (has genetic hypertriglycerides but very diet sensitive too) otherwise as above Resident Activity Tracking Resident Involvement: Resident Care Provided Care Provided: Adult Hospital Medicine (3) Pancreatitis Acute pancreatitis complication: unspecified Chronicity: acute Pancreatitis type: unspecified pancreatitis type Qualified Code(s): K85.90 - Acute pancreatitis without necrosis or infection, unspecified
[2022-06-29] MEDS ORDERED: ONDANSETRON INJ 2 MG/ML 2 ML VIAL IV PRN (12:12)
[2022-06-29] MEDS ORDERED: INSULIN REGULAR 250 UNITS in SODIUM CHLORIDE 0.9% 247.5 ML IV SCH (12:30)
[2022-06-29] MEDS ORDERED: D5NSS + 20MEQ KCL 20 MEQ/1,000 ML BAG IV SCH (12:30)
[2022-06-29] MEDS: ACETAMINOPHEN 1,000 MG/100 ML VIAL IV PRN (12:41)
[2022-06-29] MEDS: INSULIN REGULAR 250 UNITS in SODIUM CHLORIDE 0.9% 247.5 ML IV SCH (13:23)
[2022-06-29] MEDS ORDERED: D5W AND LACTATED RINGERS 1,000 ML IV SCH (13:45)
[2022-06-29] MEDS: KETOROLAC TROMETHAMINE 15 MG/ML VIAL IV PRN ×2 (14:20→20:40)
[2022-06-29] MEDS: DEXTROSE 50% 50 ML SYRINGE IV PRN ×2 (15:39→17:07)
--- NOTE | 2022-06-29 16:58 | Billing Data ---
Date of Service June 29, 2022 Coding Level of Care Code 78216 INT INP/OBS CARE
[2022-06-29] MEDS: DEXTROSE 10% 1,000 ML IV SCH (17:06)
[2022-06-29] MEDS: LACTATED RINGER'S 1,000 ML IV SCH (17:15)
[2022-06-29 22:59] LABS: Appearance Urine Clear (Clear); Bilirubin Urine Negative (Negative); Blood Urine Negative (Negative); Color Urine Yellow; Glucose Urine UA Negative (Negative); Ketones Urine Negative (Negative); Leukocyte Esterase Urine Negative (Negative); Nitrite Urine Negative (Negative); Protein Urine Negative (Negative); Specific Gravity Urine 1.005 (1.000-1.030); Urobilinogen Urine Negative (Negative); pH Urine 7.5 (4.5-7.5)
[2022-06-30] MEDS ORDERED: FAMOTIDINE 10 MG TABLET PO ONE (00:47)
[2022-06-30] MEDS: CALCIUM CARBONATE 500 MG CHEWABLE TAB PO PRN (01:12)
[2022-06-30] MEDS: ACETAMINOPHEN 1,000 MG/100 ML VIAL IV PRN (01:13)
[2022-06-30] MEDS: DEXTROSE 50% 50 ML SYRINGE IV PRN ×2 (01:34→05:56)
[2022-06-30 01:38] LABS: BUN Creatinine Ratio 7.8 (10-20); Calcium 9.5 mg/dl (8.6-10.3); Creatinine Clr Calc Pharmacy 155.3 ml/min; Est GFR (African American) 131.4 ml/min; Est GFR (Non-African American) 113.4 ml/min; Magnesium 1.6 mg/dl (1.7-2.4); Phosphorus 2.2 mg/dl (2.5-4.9); Potassium 3.1 mmol/L (3.5-5.1)
[2022-06-30] MEDS ORDERED: POTASSIUM PHOS 3 MMOL/1 ML INFUSION IV ONE (02:24)
[2022-06-30] MEDS: DEXTROSE 10% 1,000 ML IV SCH ×3 (03:09→22:08)
[2022-06-30] MEDS: LACTATED RINGER'S 1,000 ML IV SCH ×2 (03:12→13:37)
[2022-06-30] MEDS: KETOROLAC TROMETHAMINE 15 MG/ML VIAL IV PRN ×2 (03:15→13:40)
[2022-06-30] MEDS: MAGNESIUM SULFATE / D5W 1 GM/100 ML BAG IV SCH ×4 (03:16→08:39)
[2022-06-30] MEDS ORDERED: POTASSIUM PHOSPHATE 21 MMOL in SODIUM CHLORIDE 0.9% 500 ML IV ONE (04:15)
[2022-06-30 07:52] LABS: Albumin Level 3.7 gm/dl (3.4-5.0); Bilirubin,Total 0.6 mg/dl (0.2-1.0); Potassium 3.5 mmol/L (3.5-5.1)
--- NOTE | 2022-06-30 08:21 | Hospitalist Progress Note ---
Date of Service June 30, 2022 Assessment & Plan (1) Hypertriglyceridemia, essential: Plan: 32 y/o M w/ PmHx hypertriglyceridemia induced pancreatitis admitted for just that. Abd pain/Hypertriglyceridemia/Pancreatitis: -Lipase 228 - triglycerides 2968 on admission-> down to 1086 -CT A&P w/ very mild pancreatitis w/o necrosis or peripancreatic fluid. -Continue to advance diet as tolerated -Started on insulin 0.1mg/kg/hr and was hypoglycemic overnight with dextrose containing fluids, will restart insulin gtt at 0.05mg.kg/hr with D10 at 150ml/hr -Will monitor triglycerides q12 hours until <500 while on insulin. -Continue home statin and fenofibrate F/E/N/GI: Clear liquids when able, low fat, lactose intolerant (no dairy/cheese). DVT Prophylaxis: SCD Code status: Full code. (2) Abdominal pain, acute: (3) Pancreatitis: Plan Attending attestation Pt seen and examined in concert with Dr. Whitlock. In agreement with the documented findings as noted in the resident documentation with any exceptions or additions as noted here. Epigastric pain well controlled on present medication regimen (patient reports 0/10 with meds). Tolerating some clears. On examination, S1/S2 nl RRR no MCG. CTAB. Abd ND, mild TTP throughout, worse epigatrically BS+ve Acute pancreatitis in the setting of hypertriglyceridemia - pain control may be over-sedating at this time, consider taper if able. Goal TG of ~500 and improving in that direction, would restart insulin GTT and dextrose at lower rate to assist with close monitoring and d/c with hypoglycemia. Hypoglycemia, iatrogenic - as above Else see resident documentation as noted. Admission and Anticipated Discharge Date Admission Date: June 29, 2022 Subjective Pt states pain is considerable better compared to yesterday. Mild epigastric pain. Tolerating fluids. Last bowel movement 2 days ago, does state that he is passing gas. Review of Systems Review of Systems: As per above Physical Exam Physical Exam: Constitutional: well-appearing, no acute distress HEENT: NCAT, no conjunctival injection CV: regular rhythm, no murmur appreciated, extremities well-perfused, no LE edema Resp: CTABL, no wheezes/rales/rhonchi appreciated, no increased work of breathing GI: soft, nondistended, mild epigastric tenderness, BS normoactive MSK: no gross deformities appreciated Skin: warm, dry, no rash appreciated Neuro: alert, oriented, no focal neurologic deficit appreciated Results & Data Results & Data Vital Signs (Past 12 Hours) Vital Signs Temp Pulse Resp BP Pulse Ox O2 Del Method 06/30/22 07:50 36.7 C 77 16 120/76 99 Room Air 06/29/22 22:37 36.8 C 90 20 120/74 98 Room Air Resident Activity Tracking Resident Involvement: Resident Care Provided Care Provided: Adult Hospital Medicine (3) Pancreatitis Acute pancreatitis complication: unspecified Chronicity: acute Pancreatitis type: unspecified pancreatitis type Qualified Code(s): K85.90 - Acute pancreatitis without necrosis or infection, unspecified
[2022-06-30 08:28] LABS: Albumin Globulin Ratio 1.5 (0.9-2); BUN Creatinine Ratio 6.2 (10-20); Creatinine Clr Calc Pharmacy 172.6 ml/min; Est GFR (African American) 137.3 ml/min; Est GFR (Non-African American) 118.4 ml/min; Globulin 2.4 gm/dl (2.5-4.0); Total Protein 6.1 gm/dl (6.0-8.3)
[2022-06-30] MEDS: FENOFIBRATE NANOCRYSTALLIZED 145 MG TABLET PO SCH (08:38)
[2022-06-30] MEDS: ATORVASTATIN 40 MG TAB PO SCH (08:38)
[2022-06-30] MEDS: INSULIN REGULAR 250 UNITS in SODIUM CHLORIDE 0.9% 247.5 ML IV SCH (15:31)
[2022-07-01] MEDS: CALCIUM CARBONATE 500 MG CHEWABLE TAB PO PRN (00:11)
[2022-07-01] MEDS: DEXTROSE 10% 1,000 ML IV SCH ×2 (04:36→11:57)
[2022-07-01 07:02] LABS: Albumin Level 3.8 gm/dl (3.4-5.0); Bilirubin,Total 0.7 mg/dl (0.2-1.0); Calcium 9.2 mg/dl (8.6-10.3); Potassium 3.3 mmol/L (3.5-5.1)
[2022-07-01 07:08] LABS: BUN Creatinine Ratio 4.8 (10-20); Creatinine Clr Calc Pharmacy 166.4 ml/min; Est GFR (African American) 135.2 ml/min; Est GFR (Non-African American) 116.7 ml/min
[2022-07-01 07:25] LABS: Albumin Globulin Ratio 1.4 (0.9-2); Globulin 2.7 gm/dl (2.5-4.0); Total Protein 6.5 gm/dl (6.0-8.3)
--- NOTE | 2022-07-01 07:49 | Hospitalist Progress Note ---
Date of Service July 01, 2022 Assessment & Plan (1) Hypertriglyceridemia, essential: Plan: 32 y/o M w/ PmHx hypertriglyceridemia induced pancreatitis admitted for just that. Abd pain/Hypertriglyceridemia/Pancreatitis: -Lipase 228 - triglycerides 2968 on admission-> down to 1086 -CT A&P w/ very mild pancreatitis w/o necrosis or peripancreatic fluid. -Continue to advance diet as tolerated -Started on insulin 0.1mg/kg/hr and was hypoglycemic overnight with dextrose containing fluids, will restart insulin gtt at 0.05mg.kg/hr with D10 at 150ml/hr -Will monitor triglycerides q12 hours until <500 while on insulin. -Continue home statin and fenofibrate F/E/N/GI: Clear liquids when able, low fat, lactose intolerant (no dairy/cheese). DVT Prophylaxis: SCD Code status: Full code. (2) Abdominal pain, acute: (3) Pancreatitis: Admission and Anticipated Discharge Date Admission Date: June 29, 2022 Review of Systems Review of Systems: As per above Physical Exam Physical Exam: Constitutional: well-appearing, no acute distress HEENT: NCAT, no conjunctival injection CV: regular rhythm, no murmur appreciated, extremities well-perfused, no LE edema Resp: CTABL, no wheezes/rales/rhonchi appreciated, no increased work of breathing GI: soft, nondistended, mild epigastric tenderness, BS normoactive MSK: no gross deformities appreciated Skin: warm, dry, no rash appreciated Neuro: alert, oriented, no focal neurologic deficit appreciated Results & Data Results & Data Vital Signs (Past 12 Hours) Vital Signs Temp Pulse Pulse Resp BP Pulse Ox O2 Del Method 07/01/22 07:39 36.6 C 75 16 132/78 96 Room Air 06/30/22 20:42 36.8 C 78 20 136/79 100 Room Air Resident Activity Tracking Resident Involvement: Resident Care Provided Care Provided: Adult Hospital Medicine (3) Pancreatitis Acute pancreatitis complication: unspecified Chronicity: acute Pancreatitis type: unspecified pancreatitis type Qualified Code(s): K85.90 - Acute panc reatitis without necrosis or infection, unspecified
[2022-07-01] MEDS ORDERED: POTASSIUM CHLORIDE / WTR 10 MEQ/100 ML PLCT IV SCH (08:00)
[2022-07-01] MEDS: ATORVASTATIN 40 MG TAB PO SCH (08:35)
[2022-07-01] MEDS: FENOFIBRATE NANOCRYSTALLIZED 145 MG TABLET PO SCH (08:35)
[2022-07-01] MEDS ORDERED: POTASSIUM CHLORIDE CRTAB 20 MEQ TABCR PO ONE (08:38)
[2022-07-01 08:52] LABS: Magnesium 1.9 mg/dl (1.7-2.4)
--- NOTE | 2022-07-01 16:44 | Discharge Summary ---
Date of Service July 01, 2022 Admission HPI Per Admitting Provider Khanh is a 32 year old male w/ PmHx of recurrent hypertriglyceride induced pancreatitis coming in to the ED for abdominal pain and epigastric pain for 3-4 days. Patient states starting Thursday he developed epigastric and upper abdominal pain. The pain was present and got worse over the course of Thursday and Thursday. He tried to wait it out but the pain was so bad Thursday he thought maybe this is another episode of pancreatitis similar to the past ones so he decided to come in to the ED. He has had some nausea but no vomiting. He last ate yesterday at lunch. He states he fasted for and actually lost around 7kg during that time however after Ramada he started eating heavy foods again such as cheeses which he knows he is not supposed to eat. He denies any fevers, chills, vomiting, myalgia, cough, chest pain, shortness of breath. He had diarrhea then has not had a bowel movement for a day or so. In the ED CBC unremarkable, CMP w/ mild inc AST/ALT at 45/62, Glucose 121, Lipase 228, and triglycerides 2968. CT A&P revealed findings compatible with mild pancreatitis at pancreatic tail w/o necrosis or peripancreatic fluid, hepatic steatosis. Principal Diagnosis Acute Pancreatitis Discharge Exam Constitutional: well-appearing, no acute distress HEENT: NCAT, no conjunctival injection CV: regular rhythm, no murmur appreciated, extremities well-perfused, no LE edema Resp: CTABL, no wheezes/rales/rhonchi appreciated, no increased work of breathing GI: soft, nondistended, mild epigastric tenderness, BS normoactive MSK: no gross deformities appreciated Skin: warm, dry, no rash appreciated Neuro: alert, oriented, no focal neurologic deficit appreciated Discharge Data Allergies Allergy/AdvReac Type Severity Reaction Status Date / Time No Known Allergies Allergy Verified 06/29/22 02:59 Consultations 06/29/22 09:14 ED Decision to Admit Stat Ordered Studies 06/29/22 02:50 CT abd pelvis IV con only Stat Laboratory Results WBC 8.86 K/ul (4.8-10.8) 06/29/22 03:00 RBC 5.07 M/uL (4.70-6.10) 06/29/22 03:00 Hgb 16.0 g/dl (14.0-18.0) 06/29/22 03:00 Hct 41.8 % (42.0-52.0) L 06/29/22 03:00 MCV 82.4 fL (80.0-100.0) 06/29/22 03:00 MCH 31.6 pg (25.0-34.0) 06/29/22 03:00 MCHC 38.3 g/dL (32.0-36.0) H 06/29/22 03:00 RDW Std Deviation 38.1 fL (36.4-46.3) 06/29/22 03:00 RDW Coeff of Roxane 13.3 % (11.5-14.5) 06/29/22 03:00 Plt Count 331 K/uL (130-400) 06/29/22 03:00 MPV 9.9 fL (9.4-12.4) 06/29/22 03:00 Immature Gran % (Auto) 0.2 % 06/29/22 03:00 Neut % (Auto) 60.2 % 06/29/22 03:00 Lymph % (Auto) 30.6 % 06/29/22 03:00 [place] % (Auto) 7.2 % 06/29/22 03:00 Eos % (Auto) 1.2 % 06/29/22 03:00 Baso % (Auto) 0.6 % 06/29/22 03:00 Neut # (Auto) 5.33 K/uL (1.40-6.50) 06/29/22 03:00 Lymph # (Auto) 2.71 K/uL (1.2-3.4) 06/29/22 03:00 [place] # (Auto) 0.64 K/uL (0.11-0.59) H 06/29/22 03:00 Eos # (Auto) 0.11 K/uL (0-0.50) 06/29/22 03:00 Baso # (Auto) 0.05 K/uL (0-0.2) 06/29/22 03:00 Immature Gran # (Auto) 0.02 K/uL (0.01-0.20) 06/29/22 03:00 Sodium 138 mmol/L (136-145) 07/01/22 06:20 Potassium 3.3 mmol/L (3.5-5.1) L 07/01/22 06:20 Chloride 107 mmol/L (98-107) 07/01/22 06:20 Carbon Dioxide 24 mmol/L (21-32) 07/01/22 06:20 Anion Gap 7 (3-11) 07/01/22 06:20 BUN 4 mg/dl (6-23) L 07/01/22 06:20 Creatinine 0.84 mg/dl (0.6-1.4) 07/01/22 06:20 Est Cr Clr Drug Dosing 166.4 ml/min 07/01/22 06:20 Est GFR ( Amer) 135.2 ml/min 07/01/22 06:20 Est GFR (Non-Af Amer) 116.7 ml/min 07/01/22 06:20 BUN/Creatinine Ratio 4.8 (10-20) L 07/01/22 06:20 Glucose 119 mg/dl (70-99(Fasting)) H 07/01/22 06:20 POC Glucose 112 mg/dl (70-99) H 07/01/22 14:27 Calcium 9.2 mg/dl (8.6-10.3) 07/01/22 06:20 Phosphorus 2.2 mg/dl (2.5-4.9) L 06/30/22 00:03 Magnesium 1.9 mg/dl (1.7-2.4) 07/01/22 06:20 Total Bilirubin 0.7 mg/dl (0.2-1.0) 07/01/22 06:20 AST 26 U/L (13-39) 07/01/22 06:20 ALT 51 U/L (7-52) 07/01/22 06:20 Alkaline Phosphatase 46 U/L (34-104) 07/01/22 06:20 Total Protein 6.5 gm/dl (6.0-8.3) 07/01/22 06:20 Albumin 3.8 gm/dl (3.4-5.0) 07/01/22 06:20 Globulin 2.7 gm/dl (2.5-4.0) 07/01/22 06:20 Albumin/Globulin Ratio 1.4 (0.9-2) 07/01/22 06:20 Triglycerides 680 mg/dl (0-150) H 07/01/22 14:25 Lipase 228 U/L (11-82) H 06/29/22 03:00 Urine Color Yellow 06/29/22 22:40 Urine Appearance Clear (Clear) 06/29/22 22:40 Urine pH 7.5 (4.5-7.5) 06/29/22 22:40 Ur Specific [place] 1.005 (1.000-1.030) 06/29/22 22:40 Urine Protein Negative (Negative) 06/29/22 22:40 Urine Glucose (UA) Negative (Negative) 06/29/22 22:40 Urine Ketones Negative (Negative) 06/29/22 22:40 Urine Blood Negative (Negative) 06/29/22 22:40 Urine Nitrite Negative (Negative) 06/29/22 22:40 Urine Bilirubin Negative (Negative) 06/29/22 22:40 Urine Urobilinogen Negative (Negative) 06/29/22 22:40 Ur Leukocyte Esterase Negative (Negative) 06/29/22 22:40 SARS-CoV-2, RNA, NAAT NEGATIVE (NEGATIVE) 06/29/22 03:12 Impressions Abdomen/Pelvis CT 06/29/22 02:50 CT abd pelvis IV con only CLINICAL HISTORY: mid abd pain, hx pancreatitis TECHNIQUE: Helical axial images of the abdomen and pelvis were obtained and displayed. Automated dose lowering techniques and/or adjustment according to pat ient size were utilized for this exam. This exam was performed with intravenous contrast. CT DOSE: 1184.36 mGy.cm COMPARISON: Comparison is made to CT abdomen pelvis 10/31/2020 FINDINGS: Lower chest: No acute abnormality. Liver: Hepatic steatosis is noted. Gallbladder and biliary tree: Patient is status post cholecystectomy. No intra- or extrahepatic biliary ductal dilation. Pancreas: Minimal fat stranding is seen about the pancreatic tail, increased from prior exam. Spleen: Unremarkable. Adrenals: Unremarkable. Kidneys and ureters: Unremarkable. Bladder: Unremarkable. Reproductive organs: Unremarkable. Bowel: The appendix is normal. Lymph nodes Retroperitoneal: Unremarkable. Pelvic: Unremarkable. Mesenteric: Unremarkable. Peritoneum: Minimal fat stranding is seen about the pancreatic tail. No fluid collections are seen. Vessels: Unremarkable. Abdominal wall: Unremarkable. Bones: Minimal degenerative changes are seen in the thoracic spine. IMPRESSION: 1. Findings compatible with very mild pancreatitis of the pancreatic tail. No necrosis or peripancreatic fluid collection is seen. 2. Hepatic steatosis. 3. Additional findings as above. ACT 112: Negative or not required by law. Electronically signed by: Refugio Gonzalez M.D. 06/29/2022 8:32 AM Hospital Course (1) Abdominal pain, acute: (2) Hypertriglyceridemia, essential: (3) Pancreatitis: Plan Abd pain/Hypertriglyceridemia/Pancreatitis: - Patient was admitted for acute pancreatitis secondary to hypertriglyceridemia -Lipase 228 - triglycerides 2968 on admission-> down to 600 prior to discharge - Was placed on insulin drip with dextrose containing fluids to lower the triglycerides -CT A&P w/ very mild pancreatitis w/o necrosis or peripancreatic fluid. -Continue to advance diet as tolerated, was able to tolerate full liquids prior to discharge - Pain had resolved -Continue home statin and fenofibrate Total Time Total Time Spent Total Time Spent (In Minutes): 30 Discharge Plan Discharge Items Patient Disposition: Home - Self-Care Reason For Visit: ACUTE PANCREATITIS Discharge Diagnosis: Acute pancreatitis Condition on Discharge: Good Activity: Per Instructions section Non-emergency contact: Primary Care Provider Call non-emergency contact if: you have any medication questions Follow-up/Referrals: [facility] [Primary Care Provider] - Diet: Regular Addtl Attending Provider Instructions: You were admitted with pancreatitis caused by high triglycerides. We treated you with fluids and pain medication. We gave you insulin to help get your triglycerides down. We did not make any changes to your medications, so you should continue to take them as prescribed. You should reached out to your primary care provider to get you a follow up appointment within the next week. You can slowly advance you diet as tolerated. Try to avoid rich and fatty foods. If you were to develop fever/chills, worsening abdominal pain you should call your primary care provider or go back to the ED. Pending Studies at Discharge: No Stand-Alone Forms: My [facility] [employer], Smoking Cessation Medications and DC Order Prescriptions: Continued fenofibrate nanocrystallized [Tricor] 145 mg Tablet 145 mg PO DAILY atorvastatin 40 mg tablet 40 mg PO DAILY Discharge Orders: Discharge Order (Routine); Ordered 07/01/22 Ordered By: Alba Whitlock Admission Data Admit Date/Time: 06/29/22 09:14 Attending Provider: Parish Vines Admit Provider: Cosme Watson Primary Care Provider: [facility] Other Providers: Cosme Watson Other Interventions: Discharge Summary Assessment (RN) Last Done: 07/01/22 15:41 Supervising Physician Co-Signing Physician Notes Attending attestation Pt seen and examined in concert with Dr. Whitlock. In agreement with the documented findings as noted in the resident documentation with any exceptions or additions as noted here. Essential resolution of epigastric pain and tolerating POI well without nausea/vomiting. On examination, S1/S2 nl RRR no MCG. CTAB. Abd ND, v. mild TTP epigatrically BS+ve Acute pancreatitis in the setting of hypertriglyceridemia - significant improvement and now < 500 with resolution of pain. Counseling provided re: joe ers of pancreatitis and elevated TG and avoidance of same. Resume lipid regimen. Hypoglycemia, iatrogenic - resolved, episode associated with decreased POI and insulin/dextrose infusions Else see resident documentation as noted. Total attending physician time spent with this patient's care on the day of discharge: 35 minutes. Resident Activity Tracking Resident Involvement: Resident Care Provided Care Provided: Adult Hospital Medicine
== END 2022-07-01 16:17 | disposition home or self-care (01) | DRG 440 ==
LOC: ED 02:42 → SUATTDRO 09:14 → 3E 09:14

== ENCOUNTER 2023-06-15 15:07 | Inpatient (IN) ==
--- NOTE | 2023-06-15 15:41 | Emergency Department Note ---
Impression & Plan Epigastric abdominal pain, Acute pancreatitis ED Provider Note NAME: SARAH TOWNSEND AGE: 33 SEX: M : 1990 ARRIVES VIA: Walk-In INFORMANT: [Patient] ED PROVIDER(S): [Alessoi Mirza MD] CHIEF COMPLAINT: Abdominal pain HISTORY OF PRESENT ILLNESS: The patient is a 33-year-old male presents with around 3 days of epigastric abdominal pain the pain has worsened each day and was quite severe today. He has had nausea without vomiting. No fever. No respiratory complaints. No difficulty moving the bowels. He has not noticed any urinary frequency or urgency. The patient states he did have some alcohol the day he began feeling unwell. He carries a history of pancreatitis. He thinks his pancreatitis in the past was secondary to high triglycerides, he is on medications for this issue. The patient was told that he had duodenitis in the past. He was to have an endoscopy but never followed up for the appointment PMHx/PSHx/Social Hx: See Below PHYSICAL EXAM: GENERAL: Patient is in no acute distress. HEENT: No acute trauma, normocephalic atraumatic, mucous membranes moist, no nasal congestion. NECK: No stridor, no adenopathy, no meningismus, trachea is midline. LUNGS: Clear to auscultation bilaterally, no wheeze, no rhonchi, breath sounds equal. HEART: Without murmurs gallops or rubs, regular rate and rhythm. ABDOMEN: Soft, moderately tender in the epigastrium, no distention. EXTREMITIES: No cyanosis, full range of motion of all the joints without pain or difficulty. NEUROLOGIC: Oriented x 3, no acute motor or sensory deficits, no focal weakness. SKIN: No jaundice, no diaphoresis. DIFFERENTIAL DIAGNOSIS: Pancreatitis, gastritis, ulcer, duodenitis, diverticulitis, bowel obstruction, electrolyte imbalance, among others. EMERGENCY DEPARTMENT PROCEDURES: MEDICAL DECISION MAKING: There is no leukocytosis or concerning anemia. There is a normal platelet count. Sodium slightly low and carbon oxide slightly low, no need for any emergent intervention. There was no renal failure. No concerning liver enzyme elevation. Lactic acid level was not elevated making severe sepsis less likely. Lipase was elevated consistent with pancreatitis. Urinalysis did not show findings of infection. Abdominal and pelvis CT shows pancreatitis, no bowel obstruction. On exam, the patient was not febrile or toxic. Patient received IV saline for hydration. He was given IV Protonix, IV Zofran and IV Pepcid. He received IV morphine for pain control, an additional dose of IV morphine was given. The patient presents with epigastric abdominal pain. He has a history of pancreatitis and appears to have the same diagnosis causing this trouble today. Given the discomfort, given the findings on CT imaging, I do think a hospital stay would be warranted. He needs bowel rest, IV hydration and pain control. I spoke with the patient and case management, the on-call hospitalist was consulted. Prior/Outside records/notes reviewed: None Imaging/x-ray results per my interpretation: Chronic Medical/Social conditions affecting care: History of previous pancreatitis. Care/Management discussed with: Case management and the on-call hospitalist. Level of care consideration(s): After review of the information above and other included data: --I believe the patient requires escalation of care to admission DISPOSITION: Admission Past Med/Surg History Medical History Nausea Pancreatitis Epigastric abdominal pain Abdominal pain, acute Hypertriglyceridemia, essential Pancreatitis High cholesterol Surgical History Hx of cholecystectomy Social History Smoking Status: Current some day smoker Tobacco Type: E-cigarettes / Vaping Second Hand Exposure: No; Do You Dip or Chew Tobacco: No; Hx Alcohol Use: Yes Alcohol type: beer Hx Substance Use: No Preferred Language: Thai Communication Ability: Effective Him Analyst Required: No Beliefs That Will Affect Care: None marital status: Current Living Situation: Spouse Current Living Situation Comment: apartment on campus Feels Safe at Home: Yes Assistive Devices: None Allergies Allergies Allergy/AdvReac Type Severity Reaction Status Date / Time No Known Allergies Allergy Verified 06/15/23 19:03 Home Meds Home Medications Medication Instructions Recorded Confirmed fenofibrate nanocrystallized 145 145 mg PO DAILY 10/06/20 06/15/23 mg tablet (Tricor) atorvastatin 40 mg tablet 40 mg PO DAILY 06/29/22 06/15/23 Toprazole 40 mg PO DAILY PRN Acid Reflux 06/15/23 06/15/23 ibuprofen 200 mg tablet (Advil) 400 mg PO Q6H PRN Pain 06/15/23 06/15/23 Results & Data (ED) Vital Signs Vital Signs - 24 hr 06/15/23 15:21 06/15/23 15:58 06/15/23 17:35 Temperature 36.5 C Temperature Source Temporal Artery Scan Pulse Rate 88 Pulse Rate [Left Finger] 82 88 Pulse Rhythm Regular Pulse Strength Normal Respiratory Rate 18 20 16 Respiratory Effort / Characteristics Non-Labored Non-Labored Respiratory Depth Normal Normal Respiratory Pattern Regular Blood Pressure 137/88 Blood Pressure [Left Arm] 142/80 H 142/90 H Blood Pressure Mean 104 Blood Pressure Mean [Left Arm] 100 107 Blood Pressure Position Sitting Blood Pressure Position [Left Arm] Right Lateral Pulse Oximetry 98 98 99 Oxygen Delivery Method Room Air Room Air Sepsis Recent Fever Within 48 Hours No Sepsis New/Unexplained Change in Mental Status No Sepsis Action Taken by Nursing No Action Required 06/15/23 17:41 06/15/23 17:46 06/15/23 17:52 Temperature Temperature Source Pulse Rate 81 86 Pulse Rate [Left Finger] 84 Pulse Rhythm Pulse Strength Respiratory Rate 16 12 Respiratory Effort / Characteristics Non-Labored Respiratory Depth Normal Respiratory Pattern Blood Pressure Blood Pressure [Left Arm] 144/84 H Blood Pressure Mean Blood Pressure Mean [Left Arm] 104 Blood Pressure Position Blood Pressure Position [Left Arm] Pulse Oximetry 100 98 Oxygen Delivery Method Room Air Room Air Sepsis Recent Fever Within 48 Hours Sepsis New/Unexplained Change in Mental Status Sepsis Action Taken by [facility] Medications Current Medication List: was personally reviewed by me Laboratory Data Attestation: I reviewed the patient's lab results. 06/15/23 15:45 06/15/23 15:45 Lab Results 06/15/23 06/15/23 Range/Units 15:45 17:30 WBC 10.32 (4.8-10.8) K/ul RBC 5.34 (4.70-6.10) M/uL Hgb 15.5 (14.0-18.0) g/dl Hct 42.0 (42.0-52.0) % MCV 78.7 L (80.0-100.0) fL MCH 29.0 (25.0-34.0) pg MCHC 36.9 H (32.0-36.0) g/dL RDW Std Deviation 35.9 L (36.4-46.3) fL RDW Coeff of Roxane 12.8 (11.5-14.5) % Plt Count 325 (130-400) K/uL MPV 10.1 (9.4-12.4) fL Immature Gran % (Auto) 0.4 % Neut % (Auto) 79.7 % Lymph % (Auto) 13.3 % [place] % (Auto) 5.6 % Eos % (Auto) 0.5 % Baso % (Auto) 0.5 % Neut # (Auto) 8.23 H (1.40-6.50) K/uL Lymph # (Auto) 1.37 (1.20-3.40) K/uL [place] # (Auto) 0.58 (0.11-0.59) K/uL Eos # (Auto) 0.05 (0.00-0.50) K/uL Baso # (Auto) 0.05 (0.00-0.20) K/uL Immature Gran # (Auto) 0.04 (0.01-0.20) K/uL Sodium 133 L (136-145) mmol/L Potassium 3.5 (3.5-5.1) mmol/L Chloride 102 (98-107) mmol/L Carbon Dioxide 18 L (21-32) mmol/L Anion Gap 13 H (3-11) BUN 10 (6-23) mg/dl Creatinine 0.84 (0.6-1.4) mg/dl Est Cr Clr Drug Dosing 216.1 ml/min Est GFR ( Amer) 134.3 ml/min Est GFR (Non-Af Amer) 115.9 ml/min BUN/Creatinine Ratio 11.9 (10-20) Glucose 112 H (70-99(Fasting)) mg/dl Calcium 8.7 (8.6-10.3) mg/dl Total Bilirubin 0.9 (0.2-1.0) mg/dl AST 34 (13-39) U/L ALT 64 H (7-52) U/L Alkaline Phosphatase 56 (34-104) U/L Total Protein 6.6 (6.0-8.3) gm/dl Albumin 4.4 (3.4-5.0) gm/dl Globulin 2.2 L (2.5-4.0) gm/dl Albumin/Globulin Ratio 2.0 (0.9-2) Triglycerides 1226 H (0-150) mg/dl Lipase 317 H (11-82) U/L Urine Color Yellow Urine Appearance Cloudy A (Clear) Urine pH 8.5 H (4.5-7.5) Ur Specific [place] 1.025 (1.000-1.030) Urine Protein Negative (Negative) Urine Glucose (UA) Negative (Negative) Urine Ketones Negative (Negative) Urine Blood Negative (Negative) Urine Nitrite Negative (Negative) Urine Bilirubin Negative (Negative) Urine Urobilinogen Negative (Negative) Ur Leukocyte Esterase Negative (Negative) Urine WBC (Auto) 0-5 (0-5) /hpf Urine RBC (Auto) 0-2 (0-2) /hpf U Hyaline Cast (Auto) 0-2 (0-2) /lpf U Epithel Cells (Auto) 0-2 (0-2) /hpf Urine Bacteria (Auto) None Seen (None Seen) Administered Medications Hydromorphone HCl (Hydromorphone Inj 0.5 Mg/0.5 Ml Syr) 0.5 mg IV Q4H PRN PRN Reason: Pain(5+) Stop: 06/29/23 18:42 Last Admin: 06/15/23 22:15 Dose: 0.5 mg Documented By: LETITIA Famotidine (Pepcid 20mg Iv Push) 20 mg in 5 mls @ 2.5 mls/min IV Q12H [facility] Stop: 07/15/23 20:59 Last Admin: 06/15/23 20:49 Dose: 2.5 mls/min Documented By: BLAYNE Dextrose/Lactated Ringer's (D5w And Lactated Ringers) 1,000 mls @ 125 mls/hr IV .Q8H [facility] Stop: 06/16/23 18:44 Last Admin: 06/15/23 19:21 Dose: 125 mls/hr Documented By: BLAYNE Insulin Human Regular 250 (units/ Sodium Chloride) 250 mls @ 6.05 mls/hr IV .Q24H [facility] Stop: 07/15/23 18:44 Last Admin: 06/15/23 19:42 Dose: 0.05 units/kg/hr, 6.1 mls/hr Documented By: BLAYNE Co-signed By: JR Discontinued Medications Hydromorphone HCl (Hydromorphone Inj 0.5 Mg/0.5 Ml Syr) 0.5 mg IV NOW STA Stop: 06/15/23 18:20 Last Admin: 06/15/23 18:36 Dose: 0.5 mg Documented By: AMANDA Sodium Chloride (Nss) 1,000 mls @ 999 mls/hr IV .Q1H1M STA Stop: 06/15/23 16:26 Last Infusion: 06/15/23 16:57 Dose: Infused Documented By: Admin: 06/15/23 15:56 Dose: 999 mls/hr Documented By: ELEAZAR Famotidine (Pepcid 20mg Iv Push) 20 mg in 5 mls @ 2.5 mls/min IV NOW STA Stop: 06/15/23 15:39 Last Admin: 06/15/23 15:56 Dose: 2.5 mls/min Documented By: ELEAZAR Pantoprazole Sodium 40 mg/ (Syringe) 10 mls @ 5 mls/min IV NOW ONE Stop: 06/15/23 15:39 Last Admin: 06/15/23 16:18 Dose: 5 mls/min Documented By: ELEAZAR Lactated Ringer's (Lr) 1,000 mls @ 999 mls/hr IV .Q1H1M ONE Stop: 06/15/23 18:58 Last Infusion: 06/15/23 19:46 Dose: Infused Documented By: Admin: 06/15/23 18:12 Dose: 999 mls/hr Documented By: AMANDA Ioversol (Optiray 320 100ml) 93 ml IV ONCE ONE Stop: 06/15/23 17:23 Last Admin: 06/15/23 17:22 Dose: 93 ml Documented By: ALIS Morphine Sulfate (Morphine Sulfate 10 Mg/Ml Carp/Vial) 6 mg IV NOW STA Stop: 06/15/23 15:39 Last Admin: 06/15/23 15:58 Dose: 6 mg Documented By: ELEAZAR Morphine Sulfate (Morphine Sulfate 4 Mg/Ml 1 Ml Carp\Vial) Confirm Administered Dose 4 mg .ROUTE .STK-MED ONE Stop: 06/15/23 15:53 Last Admin: 06/15/23 15:58 Dose: Not Given Documented By: ELEAZAR Morphine Sulfate (Morphine Sulfate 2 Mg/Ml Carp) Confirm Administered Dose 2 mg .ROUTE .STK-MED ONE Stop: 06/15/23 15:53 Last Admin: 06/15/23 15:58 Dose: Not Given Documented By: ELEAZAR Morphine Sulfate (Morphine Sulfate 10 Mg/Ml Carp/Vial) 6 mg IV NOW STA Stop: 06/15/23 17:40 Last Admin: 06/15/23 17:45 Dose: 6 mg Documented By: AMANDA Ondansetron HCl (Ondansetron Inj 2 Mg/Ml 2 Ml Vial) 4 mg IV NOW STA Stop: 06/15/23 15:39 Last Admin: 06/15/23 15:56 Dose: 4 mg Documented By: ELEAZAR Ondansetron HCl (Ondansetron Inj 2 Mg/Ml 2 Ml Vial) 4 mg IV NOW STA Stop: 06/15/23 22:03 Last Admin: 06/15/23 22:14 Dose: 4 mg Documented By: LETITIA Imaging Data Radiologist's Impression: Abdomen/Pelvis CT 06/15/23 15:26 CT SCAN OF THE ABDOMEN AND PELVIS WITH IV CONTRAST CLINICAL HISTORY: Epigastric abdominal pain. COMPARISON STUDY: Abdominal CT dated 11/15/2022. TECHNIQUE: Following the IV administration of 93 cc of Optiray 320, CT scan of the abdomen and pelvis is performed from the lung bases to the proximal femora. Images are reviewed in the axial, sagittal, and coronal planes. IV contrast was administered without complication. A dose lowering technique was utilized adhering to the principles of ALARA. CT DOSE: 1530.08 mGy.cm FINDINGS: Lung bases: The heart is normal in size and without pericardial effusion. The lung bases are clear. Liver: The contrast-enhanced liver is enlarged, measuring 21.9 cm in length. The liver demonstrates diffusely diminished attenuation indicating steatosis. There is no intrahepatic biliary ductal dilatation. The hepatic veins and portal veins are patent. Gallbladder: Surgically absent noting clips in the gallbladder fossa. Spleen: The spleen is enlarged measuring 14.6 cm in length. Pancreas: There is peripancreatic infiltration and trace fluid. Findings are consistent with acute pancreatitis. The gland enhances throughout. The duct is normal in caliber. No peripancreatic fluid collection is seen. The splenic vein is patent. Adrenal glands: Unremarkable. Kidneys: The contrast enhanced kidneys are normal in size and without hydronephrosis. The kidneys enhance symmetrically. Abdominal vasculature: The abdominal aorta is normal in course and caliber. Bowel: There is no bowel obstruction. The appendix is well-visualized and normal. Peritoneum: There is no intraperitoneal free air or abdominal ascites. There is a fat-containing umbilical hernia. Lymphadenopathy: None. Pelvic viscera: The bladder, prostate, and seminal vesicles are normal as visualized. Skeletal structures: No lytic or blastic lesions are seen. IMPRESSION: 1. Acute pancreatitis. 2. The pancreas enhances throughout and no peripancreatic fluid collection is identified. 3. Hepatomegaly and hepatic steatosis. 4. Mild splenomegaly. 5. Additional findings as above. ACT 112: Negative or not required by law. Electronically signed by: Alessio Will M.D. 06/15/2023 5:40 PM Discharge Plan Visit Data Chief Complaint: Abdominal Pain Stated Complaint: ABD PAIN, ED Provider: Alessio Mirza Discharge Problem: Epigastric abdominal pain, Acute pancreatitis Patient Disposition: Admitted As Inpatient Condition: Fair Discharge Instructions Interventions: ED Discharge Assessment Last Done: 06/15/23 20:27 Discharge Problem: Acute pancreatitis Qualifiers: Pancreatitis type: unspecified pancreatitis type Acute pancreatitis complication: no infection or necrosis Qualified Code(s): K85.90 - Acute pancreatitis without necrosis or infection, unspecified
[2023-06-15] MEDS: FAMOTIDINE 20MG IV PUSH 20 MG/5 ML SYR IV STA (15:56)
[2023-06-15] MEDS: SODIUM CHLORIDE 0.9% 1,000 ML IV STA (15:56)
[2023-06-15] MEDS: ONDANSETRON INJ 2 MG/ML 2 ML VIAL IV STA ×2 (15:56→22:14)
[2023-06-15] MEDS: MoRPHine SULFATE 2 MG/ML CARP ONE (15:58)
[2023-06-15] MEDS: MoRPHine SULFATE 10 MG/ML CARP/VIAL IV STA ×2 (15:58→17:45)
[2023-06-15] MEDS: MoRPHine SULFATE 4 MG/ML 1 ML CARP\\VIAL ONE (15:58)
[2023-06-15] MEDS: PANTOprazole 40 MG in SYRINGE 0 ML IV ONE (16:18)
[2023-06-15 16:40] LABS: Albumin Level 4.4 gm/dl (3.4-5.0); Bilirubin,Total 0.9 mg/dl (0.2-1.0); Calcium 8.7 mg/dl (8.6-10.3); Potassium 3.5 mmol/L (3.5-5.1)
[2023-06-15 16:45] LABS: Creatinine Clr Calc Pharmacy 216.1 ml/min; Est GFR (African American) 134.3 ml/min; Est GFR (Non-African American) 115.9 ml/min; Globulin 2.2 gm/dl (2.5-4.0); Total Protein 6.6 gm/dl (6.0-8.3)
[2023-06-15 16:51] LABS: Basophils # (auto) 0.05 K/uL (0.00-0.20); Basophils % (auto) 0.5 %; Eosinophils # (auto) 0.05 K/uL (0.00-0.50); Eosinophils % (auto) 0.5 %; Hemoglobin 15.5 g/dl (14.0-18.0); Immature Granulocytes # (auto) 0.04 K/uL (0.01-0.20); Immature Granulocytes % (auto) 0.4 %; Lymphocytes # (auto) 1.37 K/uL (1.20-3.40); Lymphocytes % (auto) 13.3 %; Mean Corpuscular Hgb Conc 36.9 g/dL (32.0-36.0); Mean Corpuscular Volume 78.7 fL (80.0-100.0); Mean Platelet Volume 10.1 fL (9.4-12.4); Monocytes # (auto) 0.58 K/uL (0.11-0.59); Monocytes % (auto) 5.6 %; Neutrophils # (auto) 8.23 K/uL (1.40-6.50); Neutrophils % (auto) 79.7 %; Platelet Count 325 K/uL (130-400); RDW Coefficient of Variation 12.8 % (11.5-14.5); RDW Standard Deviation 35.9 fL (36.4-46.3); Red Blood Count 5.34 M/uL (4.70-6.10); White Blood Count 10.32 K/ul (4.8-10.8)
[2023-06-15 17:06] LABS: BUN Creatinine Ratio 11.9 (10-20)
[2023-06-15] MEDS: OPTIRAY 320 100ml IV ONE (17:22)
--- NOTE | 2023-06-15 17:43 | CT Scan Report ---
CT SCAN OF THE ABDOMEN AND PELVIS WITH IV CONTRAST CLINICAL HISTORY: Epigastric abdominal pain. COMPARISON STUDY: Abdominal CT dated 11/15/2022. TECHNIQUE: Following the IV administration of 93 cc of Optiray 320, CT scan of the abdomen and pelvi s is performed from the lung bases to the proximal femora. Images are reviewed in the axial, sagittal , and coronal planes. IV contrast was administered without complication. A dose lowering technique wa s utilized adhering to the principles of ALARA. CT DOSE: 1530.08 mGy.cm FINDINGS: Lung bases: The heart is normal in size and without pericardial effusion. The lung bases are clear. Liver: The contrast-enhanced liver is enlarged, measuring 21.9 cm in length. The liver demonstrates d iffusely diminished attenuation indicating steatosis. There is no intrahepatic biliary ductal dilatat ion. The hepatic veins and portal veins are patent. Gallbladder: Surgically absent noting clips in the gallbladder fossa. Spleen: The spleen is enlarged measuring 14.6 cm in length. Pancreas: There is peripancreatic infiltration and trace fluid. Findings are consistent with acute pa ncreatitis. The gland enhances throughout. The duct is normal in caliber. No peripancreatic fluid col lection is seen. The splenic vein is patent. Adrenal glands: Unremarkable. Kidneys: The contrast enhanced kidneys are normal in size and without hydronephrosis. The kidneys enh ance symmetrically. Abdominal vasculature: The abdominal aorta is normal in course and caliber. Bowel: There is no bowel obstruction. The appendix is well-visualized and normal. Peritoneum: There is no intraperitoneal free air or abdominal ascites. There is a fat-containing umbi lical hernia. Lymphadenopathy: None. Pelvic viscera: The bladder, prostate, and seminal vesicles are normal as visualized. Skeletal structures: No lytic or blastic lesions are seen. IMPRESSION: 1. Acute pancreatitis. 2. The pancreas enhances throughout and no peripancreatic fluid collection is identified. 3. Hepatomegaly and hepatic steatosis. 4. Mild splenomegaly. 5. Additional findings as above. ACT 112: Negative or not required by law. Electronically signed by: Alessio Will M.D. 06/15/2023 5:40 PM
[2023-06-15 17:59] LABS: Appearance Urine Cloudy (Clear); Bacteria Urine Automated None Seen (None Seen); Bilirubin Urine Negative (Negative); Blood Urine Negative (Negative); Cast Urine Automated 0-2 /lpf (0-2); Color Urine Yellow; Epithelial Cell Urine Auto 0-2 /hpf (0-2); Glucose Urine UA Negative (Negative); Ketones Urine Negative (Negative); Leukocyte Esterase Urine Negative (Negative); Nitrite Urine Negative (Negative); Protein Urine Negative (Negative); RBC Urine Automated 0-2 /hpf (0-2); Specific Gravity Urine 1.025 (1.000-1.030); Urobilinogen Urine Negative (Negative); WBC Urine Automated 0-5 /hpf (0-5); pH Urine 8.5 (4.5-7.5)
--- NOTE | 2023-06-15 18:05 | History & Physical Report ---
Date of Service June 15, 2023 Assessment & Plan (1) Abdominal pain: Plan: -Admit to med/tele -Currently stable and non-toxic appearing -Presented to the ED with 72 hours of progressive epigastric and LUQ abdominal pain -CT of the abd/pelvis w/IV con were consistent with acute, uncomplicated pancreatitis -Patient did have 4 beers on 06/12, but, triglycerides ordered on admission are 1226 -Patient does have a hx of duodenitis as well, this could still be playing a role in his abdominal pain -S/P 1L NSS and 2 doses of 6 mg IV morphine in the ED -Will give 1L LR bolus on admission -Will start patient on a non-titratable insulin drip starting at 0.05 units/kg/ hr with LR/D5W at 125 mL/hr overnight -Will monitor BSG q2h with communication order to let non destructive evaluation technician provider know if BSG is less than 80 or greater than 250 so drip and IV fluids can be adjusted -Continue daily IV pantoprazole and Q12H famotidine for possible symptoms related to Duodenitis -Will repeat triglyceride level in the am -Pain control with dilaudid -NPO, patient can have ice chips but no solids or liquids until repeats labs tomorrow -OOB for DVT PPX -AM CBC, CMP, mag, PT/INR, triglyceride level (2) High anion gap metabolic acidosis: Plan: -Likely due to dehydration from poor PO intake over the past 72 hours -Will obtain stat lactate on admission -Appears clinically stable -Continue to monitor (3) Pancreatitis: Plan: -See abdominal pain (4) Duodenitis: Plan: -See abdominal pain (5) Hypercholesterolemia: Plan: -Continue statin and Tricor Plan The patient was discussed with Dr. Pang at the time of the admission History of Present Illness Chief Complaint: Abdominal pain Primary Care Provider: Ole FytriciaDO Cassidy is a 33 year old male with a PMH significant for essential hypertriglyceridemia, recurrent pancreatitis, and duodenitis who presented to the [facility] ED on 06/15/23 with complaints of approximately 3 days of progressive epigastric abdominal pain. Per the ED staff, the patient reported that he did drink alcohol the day symptoms began. He remained stable in the ED. Labs were significant for a MCV of 78, MCHC of 36, AG of 13 with bicarb of 18, sodium of 133, ALT of 64 with other LFT's WNL, and lipase of 317. CT of the abd/pelvis w/IV con was read as "1. Acute pancreatitis. 2. The pancreas enhances throughout and no peripancreatic fluid collection is identified. 3. Hepatomegaly and hepatic steatosis. 4. Mild splenomegaly. 5. Additional findings as above.". Prior to admission the patient was given 1L NSS, 4 mg IV zofran, 2 doses of 6 mg IV morphine, along with a dose of IV pantoprazole and famotidine. At the time of the exam the patient was lying in bed in no acute distress. States he had 4 beers on 06/13/23, epigastric/LUQ pain began shortly after. Some radiation of pain to the back but otherwise denies radiation. Was tolerable for the first 48 hours but was a 10/10 after drinking water this am. Had 2 episodes of non-blood emesis after ED arrival. Pain is currently a 7/10. Was using Advil at home without improvement of his pain. Has had poor PO intake over the past 72 hours. Denies recent fever, chest pain, SOB, cough, hemoptysis, dysuria, hematuria, melena, LE swelling, and recent trauma. I explained to him that even if his previous episodes of Pancreatitis were caused by high triglycerides, he is still at high risk for recurrent episodes with consumption of alcohol. I recommended he abstain from alcohol moving forward and he expressed understanding. Please refer to Dr. Pang' attestation for any changes to the treatment plan Allergies Allergy/AdvReac Type Severity Reaction Status Date / Time No Known Allergies Allergy Verified 06/15/23 19:03 Home Medications Medication Instructions Recorded Confirmed Type fenofibrate nanocrystallized 145 145 mg PO DAILY 10/06/20 06/15/23 History mg tablet (Tricor) atorvastatin 40 mg tablet 40 mg PO DAILY 06/29/22 06/15/23 History Toprazole 40 mg PO DAILY PRN Acid Reflux 06/15/23 06/15/23 History ibuprofen 200 mg tablet (Advil) 400 mg PO Q6H PRN Pain 06/15/23 06/15/23 History Past Med/Surg History Medical History Abdominal pain, acute High cholesterol Pancreatitis Surgical History Hx of cholecystectomy Social History Smoking Status: Current every day smoker Tobacco Type: E-cigarettes / Vaping Second Hand Exposure: No; Do You Dip or Chew Tobacco: No; Hx Alcohol Use: No Hx Substance Use: No Preferred Language: Amharic Communication Ability: Effective Manager Compliance Required: No Beliefs That Will Affect Care: None marital status: Current Living Situation: Spouse Current Living Situation Comment: apartment on campus Feels Safe at Home: Yes Assistive Devices: None Physical Exam Physical Exam: Physical Exam: General: In no acute distress, stated age, well-nourished, non-toxic appearing HEENT: Normocephalic, atraumatic, no scleral icterus, pupils around round, symmetrical, and reactive to light, dry mucus membranes, trachea midline, no thyromegaly Chest/Pulm: No respiratory distress, symmetrical chest expansion, clear breath sounds throughout Cardiac: RRR, no murmurs noted Abdomen: Negative for ascites and bruising, normoactive bowel sounds, soft, significantly tender to palpation in the epigastric and LUQ without rebound tenderness, otherwise non-tender to palpation Musculoskeletal: Symmetrical and without signs of acute trauma, upper and lower extremities with full ROM, no atrophy, spasticity, or flaccidity Extremities: Radial, dorsalis pedis, and posterior tibial pulses are intact and symmetrical, no edema noted in the BL LE's Skin: Warm, dry, no rashes , lesions, or scars noted Neuro: Alert and oriented to person, place, month, year, and president, no focal defects, no tremors noted Psych: No acute distress, calm and cooperative during the exam Results & Data Results & Data Vital Signs (Past 12 Hours) Vital Signs Temp Pulse Pulse Resp BP BP Pulse Ox 06/15/23 17:52 84 12 144/84 H 98 06/15/23 17:46 86 16 100 06/15/23 17:41 81 06/15/23 17:35 88 16 142/90 H 99 06/15/23 15:58 82 20 142/80 H 98 06/15/23 15:21 36.5 C 88 18 137/88 98 O2 Del Method 06/15/23 17:52 Room Air 06/15/23 17:46 Room Air 06/15/23 17:41 06/15/23 17:35 Room Air 06/15/23 15:58 06/15/23 15:21 Room Air Laboratory Results Abnormal lab results 06/15/23 06/15/23 Range/Units 15:45 17:30 MCV 78.7 L (80.0-100.0) fL MCHC 36.9 H (32.0-36.0) g/dL RDW Std Deviation 35.9 L (36.4-46.3) fL Neut # (Auto) 8.23 H (1.40-6.50) K/uL Sodium 133 L (136-145) mmol/L Carbon Dioxide 18 L (21-32) mmol/L Anion Gap 13 H (3-11) Glucose 112 H (70-99(Fasting)) mg/dl ALT 64 H (7-52) U/L Globulin 2.2 L (2.5-4.0) gm/dl Triglycerides 1226 H (0-150) mg/dl Lipase 317 H (11-82) U/L Urine Appearance Cloudy A (Clear) Urine pH 8.5 H (4.5-7.5) Diagnostic Findings Abdomen/Pelvis CT 06/15/23 15:26 CT SCAN OF THE ABDOMEN AND PELVIS WITH IV CONTRAST CLINICAL HISTORY: Epigastric abdominal pain. COMPARISON STUDY: Abdominal CT dated 11/15/2022. TECHNIQUE: Following the IV administration of 93 cc of Optiray 320, CT scan of the abdomen and pelvis is performed from the lung bases to the proximal femora. Images are reviewed in the axial, sagittal, and coronal planes. IV contrast was administered without complication. A dose lowering technique was utilized adhering to the principles of ALARA. CT DOSE: 1530.08 mGy.cm FINDINGS: Lung bases: The heart is normal in size and without pericardial effusion. The lung bases are clear. Liver: The contrast-enhanced liver is enlarged, measuring 21.9 cm in length. The liver demonstrates diffusely diminished attenuation indicating steatosis. There is no intrahepatic biliary ductal dilatation. The hepatic veins and portal veins are patent. Gallbladder: Surgically absent noting clips in the gallbladder fossa. Spleen: The spleen is enlarged measuring 14.6 cm in length. Pancreas: There is peripancreatic infiltration and trace fluid. Findings are consistent with acute pancreatitis. The gland enhances throughout. The duct is normal in caliber. No peripancreatic fluid collection is seen. The splenic vein is patent. Adrenal glands: Unremarkable. Kidneys: The contrast enhanced kidneys are normal in size and without hydronephrosis. The kidneys enhance symmetrically. Abdominal vasculature: The abdominal aorta is normal in course and caliber. Bowel: There is no bowel obstruction. The appendix is well-visualized and normal. Peritoneum: There is no intraperitoneal free air or abdominal ascites. There is a fat-containing umbilical hernia. Lymphadenopathy: None. Pelvic viscera: The bladder, prostate, and seminal vesicles are normal as visualized. Skeletal structures: No lytic or blastic lesions are seen. IMPRESSION: 1. Acute pancreatitis. 2. The pancreas enhances throughout and no peripancreatic fluid collection is identified. 3. Hepatomegaly and hepatic steatosis. 4. Mild splenomegaly. 5. Additional findings as above. ACT 112: Negative or not required by law. Electronically signed by: Alessio Will M.D. 06/15/2023 5:40 PM Code Status & VTE Plan Code Status Full code VTE Prophylaxis Plan VTE Prophylaxis will be ordered: Yes Supervising Physician Co-Signing Physician Notes I have personally seen, evaluated and examined the patient. I have also personally discussed the management of the patient with the resident physician/BOGDAN and I agree with the exam findings documented in the history and physical examination and the documented assessment and plan unless otherwise stated below. Brief Exam: In general pleasant 33-year-old male of [place] descent. Accompanied by his at the time of my examination whom he grants permission to stay in the room during my interview and exam. The patient is alert and oriented x 3 and interacts appropriately and pleasantly during my exam. 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 He is a jono status currently. HEENT: Normocephalic atraumatic. Heart: Regular rate and rhythm no murmur or ectopy or rub. Lungs: Clear. Abdomen: Soft, tender to palpation diffusely but most exquisite in the mid epigastric region without rebound or peritoneal sign. Positive bowel sounds. No appreciable organomegaly but exam somewhat limited due to the patient's current tenderness. Extremities: Intact no significant edema. Neurologically alert and oriented x 3 with no focal deficit. Assessment/plan: As described above. Will monitor blood glucose monitoring every 2 hours/carefully adjust insulin drip and/or D5 drip as needed to maintain euglycemia during the treatment of acute pancreatitis which is hypertriglyceridemic induced. PG Care Time/CCT Total # of Minutes Spent Total Time Spent with Patient: Total time spent is greater than 50% in coordination of care (as documented) at patient's floor/unit and/or counseling patient: C[place] [address] INT INP/OBS CARE 3/75MIN Patient Type Established Medical Decision Making High Complexity Diagnoses Abdominal pain R10.9 High anion gap metabolic acidosis E87.29 Pancreatitis K85.90 Acute pancreatitis complication: unspecified Chronicity: acute Pancreatitis type: unspecified pancreatitis type Duodenitis K29.80 Hypercholesterolemia E78.00 (3) Pancreatitis Acute pancreatitis complication: unspecified Chronicity: acute Pancreatitis type: unspecified pancreatitis type Qualified Code(s): K85.90 - Acute pancreatitis without necrosis or infection, unspecified
[2023-06-15] MEDS: LACTATED RINGER'S 1,000 ML IV ONE (18:12)
[2023-06-15] MEDS: HYDROmorphone INJ 0.5 MG/0.5 ML SYR IV STA (18:36)
[2023-06-15] MEDS ORDERED: STAT IV/IM STA (18:38)
[2023-06-15] MEDS ORDERED: NALOXONE HCL 0.4 MG/1 ML VIAL/CARP IV PRN (18:44)
[2023-06-15] MEDS: D5W AND LACTATED RINGERS 1,000 ML IV SCH (19:21)
[2023-06-15] MEDS ORDERED: LACTATED RINGER'S 1,000 ML IV SCH (19:30)
[2023-06-15] MEDS: INSULIN REGULAR 250 UNITS in SODIUM CHLORIDE 0.9% 247.5 ML IV SCH (19:42)
[2023-06-15] MEDS: FAMOTIDINE 20MG IV PUSH 20 MG/5 ML SYR IV SCH (20:49)
--- NOTE | 2023-06-15 21:00 | Discharge Summary ---
Date of Service June 15, 2023 Admission HPI Per Admitting Provider Khanh is a 33 year old male with a PMH significant for essential hypertriglyceridemia, recurrent pancreatitis, and duodenitis who presented to the [facility] ED on 06/15/23 with complaints of approximately 3 days of progressive epigastric abdominal pain. Per the ED staff, the patient reported that he did drink alcohol the day symptoms began. He remained stable in the ED. Labs were significant for a MCV of 78, MCHC of 36, AG of 13 with bicarb of 18, sodium of 133, ALT of 64 with other LFT's WNL, and lipase of 317. CT of the abd/pelvis w/IV con was read as "1. Acute pancreatitis. 2. The pancreas enhances throughout and no peripancreatic fluid collection is identified. 3. Hepatomegaly and hepatic steatosis. 4. Mild splenomegaly. 5. Additional findings as above.". Prior to admission the patient was given 1L NSS, 4 mg IV zofran, 2 doses of 6 mg IV morphine, along with a dose of IV pantoprazole and famotidine. At the time of the exam the patient was lying in bed in no acute distress. States he had 4 beers on 06/13/23, epigastric/LUQ pain began shortly after. Some radiation of pain to the back but otherwise denies radiation. Was tolerable for the first 48 hours but was a 10/10 after drinking water this am. Had 2 episodes of non-blood emesis after ED arrival. Pain is currently a 7/10. Was using Advil at home without improvement of his pain. Has had poor PO intake over the past 72 hours. Denies recent fever, chest pain, SOB, cough, hemoptysis, dysuria, hematuria, melena, LE swelling, and recent trauma. I explained to him that even if his previous episodes of Pancreatitis were caused by high triglycerides, he is still at high risk for recurrent episodes with consumption of alcohol. I recommended he abstain from alcohol moving forward and he expressed understanding. Please refer to Dr. Pang' attestation for any changes to the treatment plan Discharge Data Allergies Allergy/AdvReac Type Severity Reaction Status Date / Time No Known Allergies Allergy Verified 06/15/23 19:03 Consultations 06/15/23 17:53 ED Decision to Admit Stat Ordered Studies 06/15/23 15:26 CT abd pelvis IV con only Stat Discharge Plan Discharge Items Reason For Visit: ABD PAIN, Follow-up/Referrals: Ole Johnson DO [Primary Care Provider] - Medications and DC Order Prescriptions: No Action fenofibrate nanocrystallized [Tricor] 145 mg Tablet 145 mg PO DAILY atorvastatin 40 mg tablet 40 mg PO DAILY ibuprofen [Advil] 200 mg Tablet 400 mg PO Q6H PRN (Reason: Pain) Toprazole 40 mg PO DAILY PRN (Reason: Acid Reflux) Admission Data Admit Date/Time: 06/15/23 17:57 Primary Care Provider: Ole Johnson Other Providers: Flip Pang
[2023-06-15] MEDS: HYDROmorphone INJ 0.5 MG/0.5 ML SYR IV PRN (22:15)
[2023-06-16] MEDS: HYDROmorphone INJ 0.5 MG/0.5 ML SYR IV STA (01:43)
[2023-06-16] MEDS ORDERED: GLUCOSE 40% GEL 15 GM TUBE PO PRN (01:45)
[2023-06-16] MEDS ORDERED: GLUCOSE 10 TAB/TUBE PO PRN (01:45)
[2023-06-16] MEDS ORDERED: CARBOHYDRATES FOR HYPOGLYCEMIA PO PRN (01:45)
[2023-06-16] MEDS ORDERED: GLUCAGON FOR INJ 1 MG VIAL IM PRN (01:45)
[2023-06-16] MEDS: ONDANSETRON INJ 2 MG/ML 2 ML VIAL IV STA ×2 (01:57→06:29)
[2023-06-16 07:13] LABS: Hematocrit (blood only) 40.5 % (42.0-52.0); Hemoglobin 14.7 g/dl (14.0-18.0); Mean Corpuscular Hemoglobin 29.1 pg (25.0-34.0); Mean Corpuscular Hgb Conc 36.3 g/dL (32.0-36.0); Mean Corpuscular Volume 80.2 fL (80.0-100.0); Mean Platelet Volume 10.4 fL (9.4-12.4); Platelet Count 312 K/uL (130-400); RDW Coefficient of Variation 13.2 % (11.5-14.5); RDW Standard Deviation 36.6 fL (36.4-46.3); Red Blood Count 5.06 M/uL (4.70-6.10); White Blood Count 12.88 K/ul (4.8-10.8)
[2023-06-16 07:14] LABS: Basophils # (auto) 0.05 K/uL (0.00-0.20); Basophils % (auto) 0.4 %; Immature Granulocytes # (auto) 0.18 K/uL (0.01-0.20); Immature Granulocytes % (auto) 1.4 %; Lymphocytes # (auto) 1.09 K/uL (1.20-3.40); Lymphocytes % (auto) 8.5 %; Monocytes # (auto) 0.94 K/uL (0.11-0.59); Monocytes % (auto) 7.3 %; Neutrophils # (auto) 10.62 K/uL (1.40-6.50); Neutrophils % (auto) 82.4 %
[2023-06-16] MEDS: FENOFIBRATE NANOCRYSTALLIZED 145 MG TABLET PO SCH (08:11)
[2023-06-16] MEDS: ATORVASTATIN 40 MG TAB PO SCH (08:12)
[2023-06-16 08:21] LABS: Alanine Aminotransferase 60 U/L (7-52); Albumin Globulin Ratio 1.7 (0.9-2); Alkaline Phosphatase 47 U/L (34-104); Anion Gap 13 (3-11); Bilirubin,Total 0.9 mg/dl (0.2-1.0); Blood Urea Nitrogen 6 mg/dl (6-23); Calcium 8.1 mg/dl (8.6-10.3); Carbon Dioxide 18 mmol/L (21-32); Chloride 103 mmol/L (98-107); Creatinine Clr Calc Pharmacy 164.3 ml/min; Est GFR (Non-African American) 114.7 ml/min; Globulin 2.4 gm/dl (2.5-4.0); Glucose 68 mg/dl (70-99(Fasting)); Magnesium 1.5 mg/dl (1.7-2.4); Sodium 134 mmol/L (136-145); Total Protein 6.4 gm/dl (6.0-8.3); Triglycerides 1975 mg/dl (0-150)
[2023-06-16] MEDS: D5W AND LACTATED RINGERS 1,000 ML IV SCH (09:40)
[2023-06-16] MEDS: PANTOprazole 40 MG in SYRINGE 0 ML IV SCH (10:17)
[2023-06-16] MEDS: DEXTROSE 50% 50 ML SYRINGE IV PRN ×2 (11:10→20:15)
--- NOTE | 2023-06-16 12:46 | Hospitalist Progress Note ---
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 He takes fenofibrate Dietary noncompliance He also drinks alcohol On admission, his triglyceride level was 1226. This morning it went up to 1975 despite being on insulin drip and D5 normal saline Increased the insulin drip Started the patient on hypertriglyceridemia induced pancreatitis protocol (there is an order set) Continue Dilaudid. Increase the frequency to treat pain Started Zofran Continue conservative management with n.p.o., bowel rest, IV fluids, analgesics Check blood sugar every hour (2) Abdominal pain: Plan: See problem #1 (3) High anion gap metabolic acidosis: Plan: -Likely due to dehydration from poor PO intake over the past 72 hours -Lactic acid normal -Appears clinically stable -Continue to monitor (4) Duodenitis: Plan: -See abdominal pain (5) Hypercholesterolemia: Plan: -Continue statin and Tricor Admission and Anticipated Discharge Date Admission Date: June 15, 2023 Subjective Patient is still complaining of a lot of pain in his belly. He is also very nauseated. Review of Systems Review of Systems: All systems reviewed & are unremarkable except as noted in Subjective Physical Exam Physical Exam: General: Awake, conversant Heart: S1, S2/regular rate and rhythm, no murmur rubs or gallops Lungs: Clear to auscultation bilaterally. Normal effort Abdomen: Soft/nondistended/tenderness to palpation diffusely all over her abdomen but most pronounced in the epigastrium. No rebound, rigidity or guarding.. No hepatosplenomegaly Extremities: No clubbing/cyanosis. No edema Behavior: Appropriate, cooperative Results & Data Results & Data Vital Signs (Past 12 Hours) Vital Signs Temp Pulse Pulse Resp BP Pulse Ox O2 Del Method 06/16/23 10:46 37.6 C H 81 18 129/69 94 Room Air 06/16/23 08:01 Room Air 06/16/23 08:00 106 H 06/16/23 07:45 37.6 C H 98 H 18 119/81 98 Room Air 06/16/23 03:18 37.4 C 109 H 22 127/69 96 Room Air Laboratory Results Abnormal lab results 06/15/23 06/15/23 06/16/23 Range/Units 15:45 17:30 05:34 WBC 12.88 H (4.8-10.8) K/ul Hct 40.5 L (42.0-52.0) % MCV 78.7 L (80.0-100.0) fL MCHC 36.9 H 36.3 H (32.0-36.0) g/dL RDW Std Deviation 35.9 L (36.4-46.3) fL Neut # (Auto) 8.23 H 10.62 H (1.40-6.50) K/uL Lymph # (Auto) 1.09 L (1.20-3.40) K/uL Brown # (Auto) 0.94 H (0.11-0.59) K/uL Sodium 133 L 134 L (136-145) mmol/L Carbon Dioxide 18 L 18 L (21-32) mmol/L Anion Gap 13 H 13 H (3-11) BUN/Creatinine Ratio 7.0 L (10-20) Glucose 112 H 68 L (70-99(Fasting)) mg/dl POC Glucose (70-99) mg/dl Calcium 8.1 L (8.6-10.3) mg/dl Magnesium 1.5 L (1.7-2.4) mg/dl ALT 64 H 60 H (7-52) U/L Globulin 2.2 L 2.4 L (2.5-4.0) gm/dl Triglycerides 1226 H 1975 H (0-150) mg/dl Lipase 317 H (11-82) U/L Urine Appearance Cloudy A (Clear) Urine pH 8.5 H (4.5-7.5) 06/16/23 06/16/23 06/16/23 Range/Units 10:44 11:30 12:02 WBC (4.8-10.8) K/ul Hct (42.0-52.0) % MCV (80.0-100.0) fL MCHC (32.0-36.0) g/dL RDW Std Deviation (36.4-46.3) fL Neut # (Auto) (1.40-6.50) K/uL Lymph # (Auto) (1.20-3.40) K/uL Brown # (Auto) (0.11-0.59) K/uL Sodium (136-145) mmol/L Carbon Dioxide (21-32) mmol/L Anion Gap (3-11) BUN/Creatinine Ratio (10-20) Glucose (70-99(Fasting)) mg/dl POC Glucose 69 L* 145 H 103 H (70-99) mg/dl Calcium (8.6-10.3) mg/dl Magnesium (1.7-2.4) mg/dl ALT (7-52) U/L Globulin (2.5-4.0) gm/dl Triglycerides (0-150) mg/dl Lipase (11-82) U/L Urine Appearance (Clear) Urine pH (4.5-7.5) Diagnostic Findings Abdomen/Pelvis CT 06/15/23 15:26 CT SCAN OF THE ABDOMEN AND PELVIS WITH IV CONTRAST CLINICAL HISTORY: Epigastric abdominal pain. COMPARISON STUDY: Abdominal CT dated 11/15/2022. TECHNIQUE: Following the IV administration of 93 cc of Optiray 320, CT scan of the abdomen and pelvis is performed from the lung bases to the proximal femora. Images are reviewed in the axial, sagittal, and coronal planes. IV contrast was administered without complication. A dose lowering technique was utilized adhering to the principles of ALARA. CT DOSE: 1530.08 mGy.cm FINDINGS: Lung bases: The heart is normal in size and without pericardial effusion. The lung bases are clear. Liver: The contrast-enhanced liver is enlarged, measuring 21.9 cm in length. The liver demonstrates diffusely diminished attenuation indicating steatosis. There is no intrahepatic biliary ductal dilatation. The hepatic veins and portal veins are patent. Gallbladder: Surgically absent noting clips in the gallbladder fossa. Spleen: The spleen is enlarged measuring 14.6 cm in length. Pancreas: There is peripancreatic infiltration and trace fluid. Findings are consistent with acute pancreatitis. The gland enhances throughout. The duct is normal in caliber. No peripancreatic fluid collection is seen. The splenic vein is patent. Adrenal glands: Unremarkable. Kidneys: The contrast enhanced kidneys are normal in size and without hydronephrosis. The kidneys enhance symmetrically. Abdominal vasculature: The abdominal aorta is normal in course and caliber. Bowel: There is no bowel obstruction. The appendix is well-visualized and normal. Peritoneum: There is no intraperitoneal free air or abdominal ascites. There is a fat-containing umbilical hernia. Lymphadenopathy: None. Pelvic viscera: The bladder, prostate, and seminal vesicles are normal as visualized. Skeletal structures: No lytic or blastic lesions are seen. IMPRESSION: 1. Acute pancreatitis. 2. The pancreas enhances throughout and no peripancreatic fluid collection is identified. 3. Hepatomegaly and hepatic steatosis. 4. Mild splenomegaly. 5. Additional findings as above. ACT 112: Negative or not required by law. Electronically signed by: Alessio Will M.D. 06/15/2023 5:40 PM PG Care Time/CCT Total # of Minutes Spent Total Time Spent with Patient: Total time spent is greater than 50% in coordination of care (as documented) at patient's floor/unit and/or counseling patient: Coding Level of Care Code 90436 SUB INP/OBS CARE 2/35MIN Diagnoses Acute pancreatitis K85.90 Acute pancreatitis complication: no infection or necrosis Pancreatitis type: unspecified pancreatitis type Abdominal pain R10.9 High anion gap metabolic acidosis E87.29 Duodenitis K29.80 Hypercholesterolemia E78.00 (1) Acute pancreatitis Acute pancreatitis complication: no infection or necrosis Pancreatitis type: unspecified pancreatitis type Qualified Code(s): K85.90 - Acute pancreatitis without necrosis or infection, unspecified
[2023-06-16] MEDS: D5NSS + 20MEQ KCL 20 MEQ/1,000 ML BAG IV SCH (12:57)
[2023-06-16] MEDS: HYDROmorphone INJ 0.5 MG/0.5 ML SYR IV PRN ×2 (13:27→18:15)
[2023-06-16 14:25] LABS: Potassium 3.3 mmol/L (3.5-5.1)
[2023-06-16 14:45] LABS: iSTAT Hemoglobin 14.3 g/dl (14.0-18.0); iSTAT Ionized Calcium 1.14 mmol/l (1.12-1.32); iSTAT Potassium 5.1 mmol/L (3.3-5.0)
[2023-06-16 14:50] LABS: Prothrombin Time 10.9 Seconds (9.0-12.0)
[2023-06-16] MEDS: ONDANSETRON INJ 2 MG/ML 2 ML VIAL IV PRN (15:19)
[2023-06-16 16:18] LABS: iSTAT Potassium 4.9 mmol/L (3.3-5.0)
[2023-06-16 16:19] LABS: iSTAT Creatinine 1.1 mg/dl (0.6-1.3); iSTAT Hemoglobin 14.6 g/dl (14.0-18.0); iSTAT Ionized Calcium 1.11 mmol/l (1.12-1.32)
[2023-06-16] MEDS: POTASSIUM CHLORIDE CRTAB 20 MEQ TABCR PO STA (16:40)
[2023-06-16] MEDS: D5W AND NSS 1,000 ML IV SCH (16:45)
[2023-06-16] MEDS: INSULIN REGULAR 250 UNITS in SODIUM CHLORIDE 0.9% 247.5 ML IV SCH (16:54)
--- NOTE | 2023-06-16 20:30 | Communication Note ---
Date of Service: June 16, 2023 POC glucose at 2000 73. Was given D50, insulin gtt held until glucose >100 and restarted at prior rate of 0.05 units/kg/hour with continued D5/NS @200ml/hr. Glucose again in the 70s at 0500, again given D50, insulin gtt held until glucose >100 and plan to restarted at0.05 units/kg/hour with continued D5/NS @200ml/hr. Labs sent out from 1800 06/15 with K=2.9. Repleted with K-rider x 4 and plan to add potassium back to fluids. Discussed with lab and morning labs will be sent out to be run, for accurate values given hypertriglyceridemia.
[2023-06-16 22:41] LABS: iSTAT Blood Urea Nitrogen < 3 mg/dl (7-18); iSTAT Carbon Dioxide 23 mmol/L (24-31); iSTAT Chloride 100 mmol/L (101-112); iSTAT Creatinine 0.9 mg/dl (0.6-1.3); iSTAT Glucose 129 mg/dl (70-99); iSTAT Hematocrit 43 % (42-52); iSTAT Hemoglobin 14.6 g/dl (14.0-18.0); iSTAT Ionized Calcium 1.17 mmol/l (1.12-1.32); iSTAT Potassium 3.3 mmol/L (3.3-5.0); iSTAT Sodium 135 mmol/L (135-144)
[2023-06-16] MEDS: POTASSIUM CHLORIDE / WTR 10 MEQ/100 ML PLCT IV SCH (22:50)
[2023-06-17] MEDS: D5NSS + 20MEQ KCL 20 MEQ/1,000 ML BAG IV SCH (04:26)
[2023-06-17 07:18] LABS: INR 1.3 (0.9-1.1); Prothrombin Time 14.5 Seconds (9.0-12.0)
[2023-06-17 08:20] LABS: Mean Corpuscular Hemoglobin 28.6 pg (25.0-34.0); Mean Corpuscular Hgb Conc 35.5 g/dL (32.0-36.0); Mean Corpuscular Volume 80.5 fL (80.0-100.0); Mean Platelet Volume 10.4 fL (9.4-12.4); Platelet Count 210 K/uL (130-400); RDW Coefficient of Variation 13.4 % (11.5-14.5); RDW Standard Deviation 39.8 fL (36.4-46.3); Red Blood Count 3.85 M/uL (4.70-6.10)
[2023-06-17 08:54] LABS: Albumin Level 3.9 gm/dl (3.4-5.0); Bilirubin,Total 1.2 mg/dl (0.2-1.0); Calcium 9.4 mg/dl (8.6-10.3); Magnesium 1.6 mg/dl (1.7-2.4); Potassium 3.9 mmol/L (3.5-5.1)
[2023-06-17 09:00] LABS: BUN Creatinine Ratio 3.8 (10-20); Creatinine Clr Calc Pharmacy 177.6 ml/min; Est GFR (Non-African American) 118.2 ml/min
[2023-06-17 09:05] LABS: Albumin Globulin Ratio 1.4 (0.9-2); Globulin 2.8 gm/dl (2.5-4.0); Total Protein 6.7 gm/dl (6.0-8.3)
[2023-06-17 09:53] LABS: Immature Granulocytes # (auto) 0.05 K/uL (0.01-0.20); Immature Granulocytes % (auto) 0.4 %; Lymphocytes # (auto) 1.05 K/uL (1.20-3.40); Lymphocytes % (auto) 9.3 %; Monocytes % (auto) 7.1 %; Neutrophils % (auto) 83.2 %
[2023-06-17] MEDS: MAGNESIUM SULFATE / D5W 1 GM/100 ML BAG IV SCH (10:32)
--- NOTE | 2023-06-17 12:33 | Hospitalist Progress Note ---
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 He takes fenofibrate Dietary noncompliance He also drinks alcohol On admission, his triglyceride level was 1226. On 06/15, triglyceride level went up to 1900. Today triglyceride level improved to 800s. We are able to get reliable labs today as his blood is less sleepy make. Continue insulin drip and D5 normal saline with 20 of potassium Repeat BMP at 3 PM Continue conservative management with n.p.o., bowel rest, IV fluids, analgesics Clinically improved today with less pain and less nausea (2) Abdominal pain: Plan: See problem #1 (3) High anion gap metabolic acidosis: Plan: -Likely due to dehydration from poor PO intake over the past 72 hours -Lactic acid normal -Resolved (4) Duodenitis: Plan: -See abdominal pain (5) Hypercholesterolemia: Plan: -Continue statin and Tricor Admission and Anticipated Discharge Date Admission Date: June 17, 2023 Subjective Patient is feeling better today. His belly pain is better. Nausea is better as well. All day yesterday, we had a lot of issues with his labs as his blood was too lipemic causing the machine to break. We had labs via i-STAT yesterday. Today with his triglyceride level improving, he is less lipemic and we are able to get reliable labs on him. Review of Systems Review of Systems: All systems reviewed & are unremarkable except as noted in Subjective Physical Exam Physical Exam: General: Awake, conversant Heart: S1, S2/regular rate and rhythm, no murmur rubs or gallops Lungs: Clear to auscultation bilaterally. Normal effort Abdomen: Soft/nondistended/nontender today. No hepatosplenomegaly Extremities: No clubbing/cyanosis. No edema Behavior: Appropriate, cooperative Results & Data Results & Data Vital Signs (Past 12 Hours) Vital Signs Temp Pulse Pulse Resp BP Pulse Ox O2 Del Method 06/17/23 10:40 37.5 C 95 H 19 137/89 96 Room Air 06/17/23 08:00 88 06/17/23 07:18 37.5 C 91 H 20 144/83 H 98 Room Air 06/17/23 03:00 36.6 C 101 H 19 139/88 94 Room Air Laboratory Results Abnormal lab results 06/16/23 06/16/2306/15/24 Range/Units 10:37 14:05 14:23 WBC (4.8-10.8) K/ul RBC (4.70-6.10) M/uL Hgb (14.0-18.0) g/dl Hct (42.0-52.0) % Neut # (Auto) (1.40-6.50) K/uL Lymph # (Auto) (1.20-3.40) K/uL [place] # (Auto) (0.11-0.59) K/uL PT (9.0-12.0) Seconds INR (0.9-1.1) POC Sodium 133 L (135-144) mmol/L Sodium (136-145) mmol/L POC Potassium 5.1 H (3.3-5.0) mmol/L Potassium 3.3 L (3.5-5.1) mmol/L POC Chloride 99 L (101-112) mmol/L POC Total CO2 (24-31) mmol/L POC Anion Gap 15.0 L (16-25) mmol/L POC BUN 4 L (7-18) mg/dl BUN (6-23) mg/dl BUN/Creatinine Ratio (10-20) Glucose (70-99(Fasting)) mg/dl POC Glucose 69 L* (70-99) mg/dl POC Glucose (other) (70-99) mg/dl POC Ioniz Calcium Radha (1.12-1.32) mmol/l Magnesium (1.7-2.4) mg/dl Total Bilirubin (0.2-1.0) mg/dl Triglycerides (0-150) mg/dl 06/16/23 06/16/23 06/16/23 Range/Units 16:17 21:50 22:05 WBC (4.8-10.8) K/ul RBC (4.70-6.10) M/uL Hgb (14.0-18.0) g/dl Hct (42.0-52.0) % Neut # (Auto) (1.40-6.50) K/uL Lymph # (Auto) (1.20-3.40) K/uL [place] # (Auto) (0.11-0.59) K/uL PT (9.0-12.0) Seconds INR (0.9-1.1) POC Sodium 133 L (135-144) mmol/L Sodium (136-145) mmol/L POC Potassium (3.3-5.0) mmol/L Potassium (3.5-5.1) mmol/L POC Chloride 99 L 100 L (101-112) mmol/L POC Total CO2 23 L (24-31) mmol/L POC Anion Gap 14.0 L (16-25) mmol/L POC BUN 4 L < 3 L (7-18) mg/dl BUN (6-23) mg/dl BUN/Creatinine Ratio (10-20) Glucose (70-99(Fasting)) mg/dl POC Glucose 110 H (70-99) mg/dl POC Glucose (other) 129 H (70-99) mg/dl POC Ioniz Calcium Radha 1.11 L (1.12-1.32) mmol/l Magnesium (1.7-2.4) mg/dl Total Bilirubin (0.2-1.0) mg/dl Triglycerides (0-150) mg/dl 06/16/23 06/16/23 06/17/23 Range/Units 22:05 23:31 00:31 WBC (4.8-10.8) K/ul RBC (4.70-6.10) M/uL Hgb (14.0-18.0) g/dl Hct (42.0-52.0) % Neut # (Auto) (1.40-6.50) K/uL Lymph # (Auto) (1.20-3.40) K/uL [place] # (Auto) (0.11-0.59) K/uL PT (9.0-12.0) Seconds INR (0.9-1.1) POC Sodium (135-144) mmol/L Sodium (136-145) mmol/L POC Potassium (3.3-5.0) mmol/L Potassium (3.5-5.1) mmol/L POC Chloride (101-112) mmol/L POC Total CO2 (24-31) mmol/L POC Anion Gap (16-25) mmol/L POC BUN (7-18) mg/dl BUN (6-23) mg/dl BUN/Creatinine Ratio (10-20) Glucose (70-99(Fasting)) mg/dl POC Glucose 110 H 105 H 105 H (70-99) mg/dl POC Glucose (other) (70-99) mg/dl POC Ioniz Calcium Radha (1.12-1.32) mmol/l Magnesium (1.7-2.4) mg/dl Total Bilirubin (0.2-1.0) mg/dl Triglycerides (0-150) mg/dl 06/17/23 06/17/23 06/17/23 Range/Units 05:40 06:00 07:06 WBC 11.30 H (4.8-10.8) K/ul RBC 3.85 L (4.70-6.10) M/uL Hgb 11.0 L D (14.0-18.0) g/dl Hct 31.0 L (42.0-52.0) % Neut # (Auto) 9.40 H (1.40-6.50) K/uL Lymph # (Auto) 1.05 L (1.20-3.40) K/uL [place] # (Auto) 0.80 H (0.11-0.59) K/uL PT 14.5 H (9.0-12.0) Seconds INR 1.3 H (0.9-1.1) POC Sodium (135-144) mmol/L Sodium (136-145) mmol/L POC Potassium (3.3-5.0) mmol/L Potassium (3.5-5.1) mmol/L POC Chloride (101-112) mmol/L POC Total CO2 (24-31) mmol/L POC Anion Gap (16-25) mmol/L POC BUN (7-18) mg/dl BUN (6-23) mg/dl BUN/Creatinine Ratio (10-20) Glucose (70-99(Fasting)) mg/dl POC Glucose 138 H 135 H (70-99) mg/dl POC Glucose (other) (70-99) mg/dl POC Ioniz Calcium Radha (1.12-1.32) mmol/l Magnesium (1.7-2.4) mg/dl Total Bilirubin (0.2-1.0) mg/dl Triglycerides (0-150) mg/dl 06/17/23 06/17/23 06/17/23 Range/Units 07:57 08:25 09:20 WBC (4.8-10.8) K/ul RBC (4.70-6.10) M/uL Hgb (14.0-18.0) g/dl Hct (42.0-52.0) % Neut # (Auto) (1.40-6.50) K/uL Lymph # (Auto) (1.20-3.40) K/uL [place] # (Auto) (0.11-0.59) K/uL PT (9.0-12.0) Seconds INR (0.9-1.1) POC Sodium (135-144) mmol/L Sodium 134 L (136-145) mmol/L POC Potassium (3.3-5.0) mmol/L Potassium (3.5-5.1) mmol/L POC Chloride (101-112) mmol/L POC Total CO2 (24-31) mmol/L POC Anion Gap (16-25) mmol/L POC BUN (7-18) mg/dl BUN 3 L (6-23) mg/dl BUN/Creatinine Ratio 3.8 L (10-20) Glucose 166 H (70-99(Fasting)) mg/dl POC Glucose 121 H 107 H (70-99) mg/dl POC Glucose (other) (70-99) mg/dl POC Ioniz Calcium Radha (1.12-1.32) mmol/l Magnesium 1.6 L (1.7-2.4) mg/dl Total Bilirubin 1.2 H (0.2-1.0) mg/dl Triglycerides 843 H (0-150) mg/dl PG Care Time/CCT Total # of Minutes Spent Total Time Spent with Patient: Total time spent is greater than 50% in coordination of care (as documented) at patient's floor/unit and/or counseling patient: Coding Level of Care Code 64278 SUB INP/OBS CARE 2/35MIN Diagnoses Acute pancreatitis K85.90 Acute pancreatitis complication: no infection or necrosis Pancreatitis type: unspecified pancreatitis type Abdominal pain R10.9 High anion gap metabolic acidosis E87.29 Duodenitis K29.80 Hypercholesterolemia E78.00 (1) Acute pancreatitis Acute pancreatitis complication: no infection or necrosis Pancreatitis type: unspecified pancreatitis type Qualified Code(s): K85.90 - Acute pancreatitis without necrosis or infection, unspecified
[2023-06-17 15:47] LABS: Calcium 9.2 mg/dl (8.6-10.3); Potassium 3.4 mmol/L (3.5-5.1)
[2023-06-17 15:52] LABS: BUN Creatinine Ratio 3.9 (10-20); Creatinine Clr Calc Pharmacy 184.6 ml/min; Est GFR (African American) 139.2 ml/min; Est GFR (Non-African American) 120.1 ml/min
[2023-06-17] MEDS: ACETAMINOPHEN 1,000 MG/100 ML VIAL IV STA (20:27)
[2023-06-17] MEDS: POTASSIUM CHLORIDE 40 MEQ in D5W AND NSS 1,000 ML IV SCH (20:37)
[2023-06-18 06:52] LABS: Prothrombin Time 11.3 Seconds (9.0-12.0)
[2023-06-18 07:52] LABS: BUN Creatinine Ratio 4.5 (10-20); Calcium 8.5 mg/dl (8.6-10.3); Creatinine Clr Calc Pharmacy 160.3 ml/min; Est GFR (African American) 131.7 ml/min; Est GFR (Non-African American) 113.7 ml/min; Magnesium 2.2 mg/dl (1.7-2.4); Potassium 3.9 mmol/L (3.5-5.1)
[2023-06-18] MEDS ORDERED: DEXTROSE 50% 50 ML SYRINGE IV PRN (08:29)
[2023-06-18 09:01] LABS: Basophils # (auto) 0.06 K/uL (0.00-0.20); Basophils % (auto) 0.7 %; Eosinophils # (auto) 0.18 K/uL (0.00-0.50); Eosinophils % (auto) 2.2 %; Hemoglobin 14.4 g/dl (14.0-18.0); Immature Granulocytes # (auto) 0.13 K/uL (0.01-0.20); Immature Granulocytes % (auto) 1.6 %; Lymphocytes # (auto) 1.55 K/uL (1.20-3.40); Lymphocytes % (auto) 18.9 %; Mean Corpuscular Hemoglobin 28.5 pg (25.0-34.0); Mean Corpuscular Hgb Conc 35.1 g/dL (32.0-36.0); Mean Platelet Volume 9.9 fL (9.4-12.4); Monocytes # (auto) 0.53 K/uL (0.11-0.59); Monocytes % (auto) 6.5 %; Neutrophils # (auto) 5.75 K/uL (1.40-6.50); Neutrophils % (auto) 70.1 %; Platelet Count 283 K/uL (130-400); RDW Coefficient of Variation 13.4 % (11.5-14.5); RDW Standard Deviation 39.5 fL (36.4-46.3); Red Blood Count 5.06 M/uL (4.70-6.10)
[2023-06-18] MEDS ORDERED: HYDROmorphone INJ 0.5 MG/0.5 ML SYR IV PRN (09:05)
[2023-06-18] MEDS: SODIUM CHLORIDE 0.9% 1,000 ML IV SCH (09:18)
[2023-06-18 14:49] LABS: Calcium 9.1 mg/dl (8.6-10.3); Potassium 3.6 mmol/L (3.5-5.1)
[2023-06-18 14:55] LABS: BUN Creatinine Ratio 5.7 (10-20); Creatinine Clr Calc Pharmacy 162.1 ml/min; Est GFR (African American) 132.4 ml/min; Est GFR (Non-African American) 114.2 ml/min
[2023-06-18] MEDS: oxyCODONE HCL IR 5 MG TAB (IMMEDIATE RELEASE) PO PRN (15:01)
[2023-06-18] MEDS ORDERED: POTASSIUM CHLORIDE 20 MEQ in SODIUM CHLORIDE 0.9% 1,000 ML IV SCH (15:39)
--- NOTE | 2023-06-18 15:46 | Hospitalist Progress Note ---
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 He takes fenofibrate Dietary noncompliance He also drinks alcohol On admission, his triglyceride level was 1226. On 06/15, triglyceride level went up to 1900. triglyceride level improved to 800s in response to insulin drip Today triglyceride level improved to the 600s range Since we are facing a lot of difficulties continuing the insulin dripwith obtaining frequent labs, with episodes of hypoglycemia and since the patient is feeling better, decided to stop the insulin drip today. Will check triglycerides tomorrow Change to fluid to normal saline at 1.25 mL an hour, now that insulin drip has been discontinued Continue conservative management with n.p.o., bowel rest, IV fluids, anal gesics Clinically improved today with less pain and less nausea If patient continues to get better without needing IV analgesics, will start him on a clear liquid diet tomorrow (2) Abdominal pain: Plan: See problem #1 (3) High anion gap metabolic acidosis: Plan: -Likely due to dehydration from poor PO intake over the past 72 hours -Lactic acid normal -Resolved (4) Duodenitis: Plan: -See abdominal pain (5) Hypercholesterolemia: Plan: -Continue statin and Tricor Plan Full code DVT prophylaxis: Lovenox Admission and Anticipated Discharge Date Admission Date: June 17, 2023 Subjective Patient says he feels better overall. His pain is much better. He is not terribly hungry yet but starting to feel like he could eat. Review of Systems Review of Systems: All systems reviewed & are unremarkable except as noted in Subjective Physical Exam Physical Exam: General: Awake, conversant Heart: S1, S2/regular rate and rhythm, no murmur rubs or gallops Lungs: Clear to auscultation bilaterally. Normal effort Abdomen: Soft/nondistended/nontender today. No hepatosplenomegaly Extremities: No clubbing/cyanosis. No edema Behavior: Appropriate, cooperative Results & Data Results & Data Vital Signs (Past 12 Hours) Vital Signs Temp Pulse Pulse Resp BP Pulse Ox O2 Del Method 06/18/23 12:00 36.7 C 78 18 115/63 99 Room Air 06/18/23 10:20 85 06/18/23 08:57 36.8 C 88 16 98 Room Air 06/18/23 04:07 92 H Laboratory Results Abnormal lab results 06/17/23 06/17/23 06/17/23 Range/Units 15:07 15:53 18:13 Hct (42.0-52.0) % Sodium 134 L (136-145) mmol/L Potassium 3.4 L (3.5-5.1) mmol/L Chloride (98-107) mmol/L BUN 3 L (6-23) mg/dl BUN/Creatinine Ratio 3.9 L (10-20) Glucose 119 H (70-99(Fasting)) mg/dl POC Glucose 120 H 100 H (70-99) mg/dl Calcium (8.6-10.3) mg/dl Triglycerides (0-150) mg/dl 06/17/23 06/18/23 06/18/23 Range/Units 19:51 02:20 03:43 Hct (42.0-52.0) % Sodium (136-145) mmol/L Potassium (3.5-5.1) mmol/L Chloride (98-107) mmol/L BUN (6-23) mg/dl BUN/Creatinine Ratio (10-20) Glucose (70-99(Fasting)) mg/dl POC Glucose 102 H 141 H 134 H (70-99) mg/dl Calcium (8.6-10.3) mg/dl Triglycerides (0-150) mg/dl 06/18/23 06/18/23 06/18/23 Range/Units 06:08 11:09 11:58 Hct 41.0 L (42.0-52.0) % Sodium (136-145) mmol/L Potassium (3.5-5.1) mmol/L Chloride 109 H (98-107) mmol/L BUN 4 L (6-23) mg/dl BUN/Creatinine Ratio 4.5 L (10-20) Glucose (70-99(Fasting)) mg/dl POC Glucose 125 H 105 H (70-99) mg/dl Calcium 8.5 L (8.6-10.3) mg/dl Triglycerides 640 H (0-150) mg/dl 06/18/23 Range/Units 14:14 Hct (42.0-52.0) % Sodium (136-145) mmol/L Potassium (3.5-5.1) mmol/L Chloride (98-107) mmol/L BUN 5 L (6-23) mg/dl BUN/Creatinine Ratio 5.7 L (10-20) Glucose 108 H (70-99(Fasting)) mg/dl POC Glucose (70-99) mg/dl Calcium (8.6-10.3) mg/dl Triglycerides (0-150) mg/dl PG Care Time/CCT Total # of Minutes Spent Total Time Spent with Patient: Total time spent is greater than 50% in coordination of care (as documented) at patient's floor/unit and/or counseling patient: Coding Level of Care Code 31361 SUB INP/OBS CARE 2/35MIN Diagnoses Acute pancreatitis K85.90 Acute pancreatitis complication: no infection or necrosis Pancreatitis type: unspecified pancreatitis type Abdominal pain R10.9 High anion gap metabolic acidosis E87.29 Duodenitis K29.80 Hypercholesterolemia E78.00 (1) Acute pancreatitis Acute pancreatitis complication: no infection or necrosis Pancreatitis type: unspecified pancreatitis type Qualified Code(s): K85.90 - Acute pancreatitis without necrosis or infection, unspecified
[2023-06-18] MEDS: NSS + 20MEQ KCL 20 MEQ/1,000 ML BAG IV SCH (16:25)
[2023-06-18] MEDS: ENOXAPARIN INJ 40 MG/0.4 ML SYR SQ SCH (18:24)
[2023-06-18] MEDS: HYDROmorphone INJ 0.5 MG/0.5 ML SYR IV PRN (19:42)
[2023-06-19 08:08] LABS: BUN Creatinine Ratio 11.4 (10-20); Calcium 8.8 mg/dl (8.6-10.3); Creatinine Clr Calc Pharmacy 159.9 ml/min; Est GFR (African American) 131.7 ml/min; Est GFR (Non-African American) 113.7 ml/min; Magnesium 1.7 mg/dl (1.7-2.4); Potassium 3.9 mmol/L (3.5-5.1)
--- NOTE | 2023-06-19 13:00 | Hospitalist Progress Note ---
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 He takes fenofibrate Dietary noncompliance He also drinks alcohol On admission, his triglyceride level was 1226--> 1900-->800s-->600s-->500s. Has been off of the insulin drip since 06/17. Triglyceride levels still coming down Clinically improving. Less pain. Feeling hungry Start clear liquid diet Discontinue IV Dilaudid Continue p.o. oxycodone If continues to improve, will advance to a full liquid diet tomorrow and discontinue p.o. oxycodone (2) Abdominal pain: Plan: See problem #1 (3) High anion gap metabolic acidosis: Plan: -Likely due to dehydration from poor PO intake over the past 72 hours -Lactic acid normal -Resolved (4) Duodenitis: Plan: -See abdominal pain (5) Hypercholesterolemia: Plan: -Continue statin and Tricor Plan Full code DVT prophylaxis: Lovenox Admission and Anticipated Discharge Date Admission Date: June 17, 2023 Subjective Patient says that his abdominal pain is improved overall. It is down from a 10/10 when he first got admitted to a 04/25. Also noted that he used IV Dilaudid at 3 AM. He said that he used it because he was getting hunger pains. Review of Systems Review of Systems: All systems reviewed & are unremarkable except as noted in Subjective Physical Exam Physical Exam: General: Awake, conversant Heart: S1, S2/regular rate and rhythm, no murmur rubs or gallops Lungs: Clear to auscultation bilaterally. Normal effort Abdomen: Soft/nondistended/nontender today. No hepatosplenomegaly Extremities: No clubbing/cyanosis. No edema Behavior: Appropriate, cooperative Results & Data Results & Data Vital Signs (Past 12 Hours) Vital Signs Temp Pulse Resp BP Pulse Ox O2 Del Method 06/19/23 11:00 36.9 C 74 18 121/83 97 Room Air 06/19/23 03:43 37.0 C 86 20 157/96 H 94 Room Air Laboratory Results Abnormal lab results 06/18/23 06/18/23 06/18/23 Range/Units 14:14 16:03 17:08 Sodium (136-145) mmol/L BUN 5 L (6-23) mg/dl BUN/Creatinine Ratio 5.7 L (10-20) Glucose 108 H (70-99(Fasting)) mg/dl POC Glucose 100 H 103 H (70-99) mg/dl Triglycerides (0-150) mg/dl 06/19/23 Range/Units 07:36 Sodium 135 L (136-145) mmol/L BUN (6-23) mg/dl BUN/Creatinine Ratio (10-20) Glucose 111 H (70-99(Fasting)) mg/dl POC Glucose (70-99) mg/dl Triglycerides 589 H (0-150) mg/dl PG Care Time/CCT Total # of Minutes Spent Total Time Spent with Patient: Total time spent is greater than 50% in coordination of care (as documented) at patient's floor/unit and/or counseling patient: Coding Level of Care Code 18885 SUB INP/OBS CARE 2MIN Diagnoses Acute pancreatitis K85.90 Acute pancreatitis complication: no infection or necrosis Pancreatitis type: unspecified pancreatitis type Abdominal pain R10.9 High anion gap metabolic acidosis E87.29 Duodenitis K29.80 Hypercholesterolemia E78.00 (1) Acute pancreatitis Acute pancreatitis complication: no infection or necrosis Pancreatitis type: unspecified pancreatitis type Qualified Code(s): K85.90 - Acute pancreatitis without necrosis or infection, unspecified
[2023-06-19] MEDS: MELATONIN 3 MG TAB PO PRN (23:50)
[2023-06-20 07:01] LABS: BUN Creatinine Ratio 13.1 (10-20); Calcium 9.4 mg/dl (8.6-10.3); Creatinine Clr Calc Pharmacy 167.3 ml/min; Est GFR (African American) 134.3 ml/min; Est GFR (Non-African American) 115.9 ml/min; Potassium 3.4 mmol/L (3.5-5.1)
[2023-06-20] MEDS: POTASSIUM CHLORIDE CRTAB 20 MEQ TABCR PO STA (09:20)
--- NOTE | 2023-06-20 12:41 | Discharge Summary ---
Date of Service June 20, 2023 Admission Exam Per Admitting Provider The patient is awake, alert and oriented 3, well developed and well nourished, normocephalic and atraumatic, lying in bed and in no acute distress. HEENT--PERRL, EOMI, mucous membranes and oropharynx dry. Neck--supple. No JVD. No bruits. Thyroid normal, trachea midline, no adenopathy. Heart--normal S1 and S2. No murmurs, rubs or gallops. Lungs--clear bilaterally, no respiratory distress, no accessory muscle use. Abdomen--normal bowel sounds and soft. Nontender. Nondistended, no hernias or masses, no organomegaly. Extremities--no cyanosis or clubbing. No edema. Dermatologic--normal skin turgor, normal color, no abnormal lymph nodes, no rash. Neurologic--cranial nerves II through XII grossly intact. Rheumatologic--normal range of motion. Psychiatric--normal affect. Principal Diagnosis Recurrent hypertriglyceridemia-induced pancreatits Dietary noncompliance Discharge Exam General: Awake, conversant Heart: S1, S2/regular rate and rhythm, no murmur rubs or gallops Lungs: Clear to auscultation bilaterally. Normal effort Abdomen: Soft/nondistended/nontender today. No hepatosplenomegaly Extremities: No clubbing/cyanosis. 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 He takes fenofibrate Dietary noncompliance He also drinks alcohol On admission, his triglyceride level was 1226--> 1900-->800s-->600s-->500s. Has been off of the insulin drip since 06/17. Triglyceride levels still coming down Clinically improving. Less pain. Feeling hungry Advanced his diet. Tolerated solid meal today Patient wishes to go home today Cleared for discharge since he tolerated his meal Emphasized the importance of dietary compliance (2) Abdominal pain: See problem #1 (3) High anion gap metabolic acidosis: -Likely due to dehydration from poor PO intake over the past 72 hours -Lactic acid normal -Resolved (4) Duodenitis: -See abdominal pain (5) Hypercholesterolemia: -Continue statin and Tricor Plan Discharge to home Total Time Total Time Spent Total Time Spent (In Minutes): 35 Discharge Plan Discharge Items Patient Disposition: Home - Self-Care Reason For Visit: ABD PAIN, RECURRENT PANCREATITIS Discharge Diagnosis: Recurrent hypertriglyceridemia-induced pancreatits Condition on Discharge: Fair Activity: Resume your previous activity Non-emergency contact: Primary Care Provider Call non-emergency contact if: you have any medication questions and your symptoms worsen Follow-up/Referrals: Ole Johnson DO [Primary Care Provider] - Diet: Regular and Low Fat Addtl Attending Provider Instructions: - Advised to follow-up with PCP in 1 week - Advised to avoid rich and fatty food. Pending Studies at Discharge: No Stand-Alone Forms: My [facility] Medications and DC Order Prescriptions: Continued fenofibrate nanocrystallized [Tricor] 145 mg Tablet 145 mg PO DAILY atorvastatin 40 mg tablet 40 mg PO DAILY ibuprofen [Advil] 200 mg Tablet 400 mg PO Q6H PRN (Reason: Pain) Toprazole 40 mg PO DAILY PRN (Reason: Acid Reflux) Discharge Orders: Discharge Order (Routine); Ordered 06/20/23 Ordered By: Mihaela Murphy Admission Data Admit Date/Time: 06/17/23 09:49 Attending Provider: Mihaela Murphy Admit Provider: Flip Pang Primary Care Provider: Ole Johnson Other Providers: Flip Pang Coding Level of Care Code 41096 INP/OBS DISCH >30 MIN Diagnoses Acute pancreatitis K85.90 Acute pancreatitis complication: no infection or necrosis Pancreatitis type: unspecified pancreatitis type Abdominal pain R10.9 High anion gap metabolic acidosis E87.29 Duodenitis K29.80 Hypercholesterolemia E78.00
== END 2023-06-20 14:07 | disposition home or self-care (01) | DRG 439 ==
LOC: ED 15:07 → EDINP 15:07 → SUATTDRO 17:57 → EDINP 20:27 → 2E 21:44